=== PATIENT | male | born 1945 | race Caucasian/White ===

== ENCOUNTER 2016-12-04 18:29 | Emergency (ER) | payer MEDICARE ==
[2016-12-04 20:02] VITALS: BP 151/81
--- NOTE | 2016-12-04 20:57 | RAD ---
Indication: Left foot swelling. 3 views of left foot demonstrates no fracture. Soft tissue swelling is noted. IMPRESSION: No fracture of the left foot is noted.
[2016-12-04] MEDS ORDERED: predniSONE TAB* 10 MG PO ONE (21:18)
--- NOTE | 2016-12-04 21:21 | UC ---
Lower Extremity/Ankle HPI - HPI Summary HPI Summary: LEFT FOOT PAIN, STARTED ON THE BOTTOM OF FOOT, SPREAD TO DORSUM OF FOOT X 1 DAY. NO FEVERS, NO TRAUMA, NO OPEN WOUNDS. HX GOUT AND RA. TAKING IV FOR RA. HAD BLOOD WORK DONE AT [facility] TODAY. - History of Current Complaint Chief Complaint: UCLowerExtremity Stated Complaint: LFT FOOT PAIN Time Seen by Provider: 12/04/16 20:01 Hx Obtained From: Patient Onset/Duration: Lasting Days, Still Present Severity Initially: Mild Severity Currently: Moderate Aggravating Factor(s): Standing, Ambulation Alleviating Factor(s): Rest Able to Bear Weight: Yes - Risk Factors Gout Risk Factors: Age Over 40, Male - Allergies/Home Medications Allergies/Adverse Reactions: Allergies Allergy/AdvReac Type Severity Reaction Status Date / Time Hydroxychloroquine Allergy Unknown Unknown Verified 12/04/16 20:02 Reaction Details Leflunomide Allergy Unknown Unknown Verified 12/04/16 20:02 Reaction Details Cimetidine [From [facility]] Allergy Unknown Verified 12/04/16 20:02 Reaction Details Sulfa Antibiotics Allergy Unknown Verified 12/04/16 20:02 Reaction Details Home Medications: Home Medications Fluticasone NASAL SPRAY 50MCG* [Flonase NASAL SPRAY 50MCG*] 2 spray BOTH NARES DAILY 12/04/16 [History Confirmed 12/04/16] PMH/Surg Hx/FS Hx/Imm Hx Previously Healthy: No Endocrine History Of: Denies: Diabetes, Thyroid Disease Cardiovascular History Of: Reports: Cardiac Disorders - Pace Maker, stents, Hypertension, Atrial Fibrillation Psychological History Of: Denies: Anxiety, Depression - Surgical History Surgical History: Yes Surgery Procedure, Year, and Place: hemicholectomy- colostomy surgery with reversal. nasal. vasectomy. R TKA - Family History Known Family History: Positive: Cardiac Disease, Hypertension, Other - father had RA, at age 70. Mother had mental illness and [place] - Social History Alcohol Use: None Substance Use Type: None Smoking Status (MU): Former Smoker Amount Used/How Often: 3 PPD Length of Time of Smoking/Using Tobacco: 30 YEARS Have You Smoked in the Last Year: No When Did the Patient Quit Smoking/Using Tobacco: Household Exposure Type: Cigarettes - Immunization History Most Recent Influenza Vaccination: 2012 Most Recent Tetanus Shot: 2012 Most Recent Pneumonia Vaccination: 2006 Review of Systems Constitutional: Negative Skin: Other - MILD FOOT ERYTHEMA Respiratory: Negative Cardiovascular: Negative Motor: Negative Neurovascular: Negative Musculoskeletal: Edema - LEFT FOOT Neurological: Negative Psychological: Negative All Other Systems Reviewed And Are Negative: Yes Physical Exam Triage Information Reviewed: Yes Vital Signs: Initial Vital Signs Temp 98.4 F 12/04/16 19:55 Pulse 72 12/04/16 19:55 Resp 18 12/04/16 19:55 BP 151/81 12/04/16 19:55 Pulse Ox 99 12/04/16 19:55 Vital Signs Reviewed: Yes Respiratory: Positive: Normal breath sounds Musculoskeletal: Positive: Edema @ - LEFT FOOT, LESS IN LEFT CALF Neurological Exam: Normal Psychological Exam: Normal Skin: Positive: Other - LEFT FOOT MILD ERYTHEMA. NO SKIN BREAK. NO CALOR. MOST TENDER IN ARCH OF FOOT. Lower Extremity Course/Dx - Course Course Of Treatment: X-RAY NEGATIVE. INFECTION UNLIKELY; NO SKIN BREAK, NO DM, NO CALOR. DVT UNLIKELY SWELLING STARED ON PLANTAR FOOT. GOUT IS POSSIBLE; URIC ACID LEVEL PENDING. PLANTAR FASCITIS ALSO POSSIBLE. WILL RX PREDNISONE AND COLCHICINE. F/U URIC ACID TO DETERMINE NEED TO TREAT WITH COLCHICINE. F/U 12/05/16 WITH PMD TO GUIDE FURTHER TREATMENT. DISCUSSED WITH PATIENT TO GET SEEN AGAIN RIGHT AWAY FOR ANY SIGNS OF INFECTION OR DVT. - Differential Dx/Diagnosis Provider Diagnoses: LEFT FOOT SWELLING Discharge - Discharge Plan Condition: Stable Disposition: HOME Prescriptions: Colchicine [Mitigare] 0.6 mg PO Q2HR PRN #20 cap PRN Reason: Pain predniSONE TAB* [Deltasone TAB*] 30 mg PO DAILY #18 tab Additional Instructions: FOLLOW UP WITH YOUR DOCTOR. CALL YOUR DOCTOR TOMORROW, 12/05/16, FOR FOLLOW UP. YOUR URIC ACID LEVEL IS PENDING. GO TO THE EMERGENCY DEPARTMENT FOR ANY WORSENING OF YOUR CONDITION; PAIN, SWELLING, FEVER, YOU, FEEL ILL, SIGNS OF INFECTION OR BLOOD CLOT OR QUESTIONS OR CONCERNS.
== END 2016-12-04 21:40 | disposition home or self-care (01) ==
LOC: UCCORT 18:29
DX: M79.89 Other specified soft tissue disorders (principal); M79.672 Pain in left foot; Z95.0 Presence of cardiac pacemaker; I48.91 Unspecified atrial fibrillation; I10 Essential (primary) hypertension; Z95.5 Presence of coronary angioplasty implant and graft; Z88.2 Allergy status to sulfonamides; Z87.891 Personal history of nicotine dependence
CPT/HCPCS: 99212; G0463; J7512

== ENCOUNTER 2019-01-06 20:04 | Emergency (ER) | payer MEDICARE ==
--- OUTSIDE RECORDS SUMMARY | 2019-01-06 20:15 | XMS REPORT | Continuity of Care Document ---
:1945 External Reference #:[id number] Author Name Lg Briones M.D., [facility] Address [address] [place] [address] Care Team Providers Name Role Phone Pino Espinosa, Care Team Information Holter Scanning Technician Unavailable Pino Espinosa DO Primary Care Physician Unavailable Payers Date Identification Numbers Payment Provider Subscriber Policy Number: [id number] Medicare Elsy Garza PayID: [id number] [address] [place] [address] Effective: 2009 Policy Number: [facility] Elsy Garza [id number] PayID: [id number] [address] [place] [address] Effective: 2009 Policy Number: [id number] Medicare Elsy Garza Expires: 2018 PayID: [id number] [address] [place] [address] Problems Active Problems Provider Date Coronary arteriosclerosis Huang Herron MD, PhD Onset: 10/25/2010 Hyperlipidemia Huang Herron MD, PhD Onset: 10/25/2010 Malignant essential hypertension Huang Herron MD, PhD Onset: 10/25/2010 Chest pain Lakshmi Kolb, ANP Onset: 10/10/2011 Peripheral vascular disease Lakshmi Kolb, ANP Onset: 10/10/2011 Benign essential hypertension Lakshmi Kolb, ANP Onset: 10/10/2011 Atrial fibrillation Lakshmi Kolb, ANP Onset: 05/17/2013 Anticoagulant agent Lakshmi Kolb, ANP Onset: 11/09/2014 Sinus node dysfunction Lg Briones M.D., Onset: 04/13/2015 [facility] Cardiac pacemaker in situ Lg Briones M.D., Onset: 04/13/2015 [facility] Essential hypertension Michelle José, MSN, Onset: 06/18/2015 [employer] Chronic atrial fibrillation Michelle José, MSN, Onset: 06/18/2015 [employer] Atherosclerotic heart disease of Michelle José, MSN, Onset: 2014 crow coronary artery without angina [employer] pectoris Edema Lg Briones M.D., Onset: 12/27/2015 [facility] Long-term current use of anticoagulant Lg Briones M.D., Onset: 12/2015 [facility] Psychogenic impotence Lg Briones M.D., Onset: 12/30/2018 [facility] Paroxysmal ventricular tachycardia Lg Briones M.D., Onset: 2018 [facility] Family History Date Family Member(s) Observation Comments : (age 69 Years) Father due to AR : (age 52 Years) Mother due to AR Social History Type Date Description Comments Sex Unknown Lives With Girlfriend Geena Lew Patient follows no dietary restrictions Occupation 2006 Disabled ADL's/IADL's Independent with all ADL's ADL's/IADL's Independent with all IADL's Tobacco Use Start: Unknown End: Quit Unknown ETOH Use Occasionally consumes alcohol Tobacco Use Start: Unknown End: Patient is a former smoker Unknown Smoking Status Reviewed: 12/30/18 Patient is a former smoker Exercise Type/Frequency Exercises daily Exercise Type/Frequency Walks daily Allergies, Adverse Reactions, Alerts Active Allergies Reaction Severity Comments Date Tagamet Plaquenil Sulfa Drugs Medications Active Medications SIG Qnty Indications Ordering Provider Date Aspirin 1 by mouth every 90tabs I25.10 Lg Briones 10/06/[address] rebecca Polanco M.D., [facility] Magnesium Oxide take one tablet 60tabs Joanna Joséa 08/10/2018 400mg by mouth twice a Duran, MSN, Tablets day [employer] Viagra Generic 1 by mouth every 14tabs Lg Briones 06/28/2018 50mg day as needed Oliva Polanco, [facility] Tablets Lasix 1 by mouth every 90tabs Lg Briones 12/27/2015 20mg Tablets day as needed Oliva Polanco, [facility] Coumadin 1 tab by mouth 90tabs Lg Briones 12/27/2015 1mg Tablets every day Oliva Polanco, [facility] Coumadin Take 1 Tablet 90tabs Lg Briones 10/24/2015 5mg Tablets Every Day Oliva Polanco, [facility] Pravastatin Sodium 1 by mouth every 20tabs E78.5 Lg Briones 2012 40mg day with two on Oliva Polanco, [facility] Tablets thursday Nitrostat 1 tab sl every 5 25tabs I25.10 Lg Briones 04/16/2010 0.4mg Tablets min x3 chest pain Oliva Polanco, [facility] Sub Colchicine 1 tablet as Unknown 0.6mg directed Tablets Methotrexate 6 tabs by mouth Unknown 2.5mg every week Tablets Allopurinol 1 po qd ZhouMarcoofia, 100mg [employer] Tablets Calcium 500 + D3 1 by mouth once a Unknown day [id number] Tablets Tramadol HCL take 1 to 2 Unknown 50mg tablets by mouth Tablets every 6 hours if needed for pain maximum daily dose of 8 Actemra infusion q 4 Unknown 200mg/10ML weeks Solution Vitamin B-12 1 po qd Unknown 500mcg Tablets Omeprazole 1 po qd Unknown 20mg Capsules DR Folic Acid 1 po qd Lg Briones 1mg Tablets Oliva Polanco, [facility] History Medications Plavix 1 by mouth every 30tabs Anselmo, 11/30/2017 - 75mg Tablets day Lg Polanco M.D., Unknown FACC Ranexa 1 by mouth twice 60tabs I25.10 José, Michelle 11/23/2017 - 500mg Tablets ER 12HR a day Duran, ANA, Unknown [employer] Warfarin Sodium take 1 pill 45tabs Anselmo, 10/17/2014 - 1mg Tablets along with the 5 Lg Polanco M.D., 12/27/2015 mg pill only FACC once a week. (the rest of the days take 5 mg per day) Coumadin 1 tab by mouth 90tabs Anselmo, 10/06/2014 - 5mg Tablets every day Lg Polanco M.D., Unknown FACC Xarelto 1 by mouth every 30tabs Anselmo, 10/05/2014 - 20mg Tablets day Lg Polanco M.D., 10/06/2014 FACC Aspirin 1 by mouth every Anselmo, 10/05/2014 - 81mg Tablets day Lg Polanco M.D., 07/28/2016 FACC Hydrochlorothiazide 1 by mouth every 30caps 782.3 Anselmo, 06/20/2014 - 12.5mg day for five Lg Polanco M.D., 04/13/2015 Capsules days then as FACC needed. Xarelto 1 tab by mouth 30tabs 427.31 Huang Herron, 07/04/2013 - 20mg Tablets every evening , PhD Unknown Aspirin 1 po qd Huang Herron, 04/11/2013 - 325mg Tablets , PhD Unknown Pravastatin Sodium 1 po qd 90tabs José, Michelle 04/04/2011 - 80mg Tablets ANA Garzon, 04/04/2011 [employer] Pravastatin Sodium 2 tabs by mouth 180tabs José, Michelle 04/04/2011 - 40mg Tablets every day Duran, ANA, Unknown [employer] Amlodipine Besylate 1 po qd 90tabs 401.0 Huang Herron, 10/10/2010 - 2.5mg , PhD Unknown Tablets Ramipril take one capsule 90caps 414.00 Anselmo, 04/16/2010 - 5mg Capsules by mouth every Lg Polanco M.D., 04/13/2015 day FACC Prednisone 1 by mouth as Unknown - 5mg Tablets needed Unknown Aspir-81 1 by mouth every Unknown - 81mg Tablets DR day when not Unknown taking Prednisone prn Remicade via IV q6 weeks Unknown - 100mg Solution Rec at [facility] Aspirin Ec 1 po qd 90tabs Unknown - 325mg Tablets DR 10/05/2014 Lipoflavonoid 1 po bid Unknown - Tablets Unknown Amlodipine Besylate 1 by mouth every 90tabs 401.0 Jarodenko, - 5mg Tablets day Lg Polanco M.D., 04/13/2015 FACC Pravastatin Sodium 1 po qd 90tabs Unknown - 40mg Tablets 10/11/2012 Nabumetone take 1 tablet 60tabs Unknown - 750mg Tablets daily Unknown Diclofenac Sodium DR 1 tab po bid ac 60tabs Unknown - 75mg Unknown Tablets Lipitor 1 po qd 90tabs José, Michelle - 40mg Tablets Duran, MSN, 04/04/2011 [employer] Plavix 1 by mouth every 90tabs Jarodenmichael, - 75mg Tablets day Lg Polanco M.D., 10/05/2014 FACC Remicade IV q 8 weeks Unknown - Solution Rec Unknown Methotrexate Sodium 0.8ml inject Unknown - 25mg/ml qweekly Unknown Solution Hydrocodone-Acetaminophen prn Anselmo, - Lg Polanco M.D., Unknown 7.5-500mg Tablets FACC Nitrostat 1 tab sl q5min 25tabs Anselmo, - 0.4mg Tablets Sub x3 CP Lg Polanco M.D., Unknown FACC Aspirin Ec 1 po qd Anselmo, - 81mg Tablets DR Lg Polanco M.D., 04/11/2013 FACC Tramadol HCL 1 po QHS/prn Anselmo, - 50mg Tablets Lg Polanco M.D., Unknown FACC Viagra prn 5tabs Anselmo, - 50mg Tablets Lg Polanco M.D., Unknown FACC Hydrochlorothiazide 1 po qd 30tabs Anselmo, - 12.5mg Lg Polanco M.D., Unknown Tablets FACC Nabumetone 1 po qd Harrietko, - 750mg Tablets Lg Polanco M.D., Unknown FACC Prilosec 1 po qd Harrietko, - 20mg Capsules DR Lg Polanco M.D., Unknown FACC Vital Signs Date Vital Result Comment 12/30/2018 9:49am BP Systolic Sitting Left Arm 131 mmHg BP Diastolic Sitting Left Arm 87 mmHg Heart Rate 71 /min Respiratory Rate 18 /min Weight 213.00 lb O2 % BldC Oximetry 96 % ora 10/06/2018 1:40pm BP Systolic Sitting Left Arm 140 mmHg BP Diastolic Sitting Left Arm 77 mmHg Heart Rate 66 /min Respiratory Rate 16 /min Height 73 inches 6'1" Weight 227.00 lb BMI (Body Mass Index) 29.9 kg/m2 BSA (Body Surface Area) 2.27 m2 [place] body weight in kilograms 83 kg O2 Saturation Level with Exercise 98 % 06/28/2018 9:26am BP Systolic Sitting Left Arm 128 mmHg BP Diastolic Sitting Left Arm 74 mmHg Heart Rate 83 /min Respiratory Rate 18 /min Height 73 inches 6'1" Weight 230.00 lb BMI (Body Mass Index) 30.3 kg/m2 BSA (Body Surface Area) 2.28 m2 [place] body weight in kilograms 83 kg O2 % BldC Oximetry 99 % Room air 03/25/2018 9:01am BP Systolic Sitting Left Arm 114 mmHg BP Diastolic Sitting Left Arm 66 mmHg Heart Rate 65 /min Respiratory Rate 18 /min Height 73 inches 6'1" Weight 239.00 lb BMI (Body Mass Index) 31.5 kg/m2 BSA (Body Surface Area) 2.32 m2 [place] body weight in kilograms 83 kg O2 % BldC Oximetry 97 % Room air 12/23/2017 10:37am BP Systolic Sitting Left Arm 110 mmHg BP Diastolic Sitting Left Arm 70 mmHg Heart Rate 75 /min Respiratory Rate 16 /min Weight 263.00 lb 11/23/2017 10:58am BP Systolic Sitting Left Arm 124 mmHg BP Diastolic Sitting Left Arm 74 mmHg Heart Rate 68 /min Respiratory Rate 16 /min Height 73 inches 6'1" Weight 261.00 lb BMI (Body Mass Index) 34.4 kg/m2 BSA (Body Surface Area) 2.41 m2 [place] body weight in kilograms 83 kg 10/27/2017 3:03pm BP Systolic Sitting Left Arm 120 mmHg BP Diastolic Sitting Left Arm 80 mmHg Heart Rate 73 /min Respiratory Rate 16 /min Height 73 inches 6'1" Weight 259.00 lb BMI (Body Mass Index) 34.2 kg/m2 BSA (Body Surface Area) 2.40 m2 [place] body weight in kilograms 83 kg 08/10/2017 10:06am BP Systolic Sitting Right Arm 128 mmHg BP Diastolic Sitting Right Arm 72 mmHg Heart Rate 79 /min Respiratory Rate 16 /min Height 73 inches 6'1" Weight 261.00 lb BMI (Body Mass Index) 34.4 kg/m2 BSA (Body Surface Area) 2.41 m2 [place] body weight in kilograms 83 kg 01/26/2017 9:35am BP Systolic Sitting Left Arm 122 mmHg BP Diastolic Sitting Left Arm 88 mmHg Heart Rate 78 /min Respiratory Rate 16 /min Height 73 inches 6'1" Weight 257.00 lb BMI (Body Mass Index) 33.9 kg/m2 BSA (Body Surface Area) 2.39 m2 [place] body weight in kilograms 83 kg 07/28/2016 1:56pm BP Systolic Sitting Left Arm 122 mmHg BP Diastolic Sitting Left Arm 70 mmHg Heart Rate 72 /min Height 73 inches 6'1" Weight 258.00 lb BMI (Body Mass Index) 34.0 kg/m2 BSA (Body Surface Area) 2.40 m2 01/17/2016 2:04pm BP Systolic Sitting Right Arm 108 mmHg BP Diastolic Sitting Right Arm 60 mmHg Heart Rate 64 /min Respiratory Rate 16 /min Height 73 inches 6'1" Weight 257.00 lb BMI (Body Mass Index) 33.9 kg/m2 BSA (Body Surface Area) 2.39 m2 12/27/2015 9:26am BP Systolic Sitting Left Arm 134 mmHg BP Diastolic Sitting Left Arm 72 mmHg Heart Rate 70 /min Respiratory Rate 16 /min Height 73 inches 6'1" Weight 258.00 lb BMI (Body Mass Index) 34.0 kg/m2 BSA (Body Surface Area) 2.40 m2 06/18/2015 9:36am BP Systolic Sitting Left Arm 120 mmHg BP Diastolic Sitting Left Arm 64 mmHg Heart Rate 76 /min Respiratory Rate 16 /min Height 73 inches 6'1" Weight 249.00 lb BMI (Body Mass Index) 32.8 kg/m2 BSA (Body Surface Area) 2.36 m2 04/13/2015 10:16am BP Systolic Sitting Right Arm 96 mmHg BP Diastolic Sitting Right Arm 60 mmHg Heart Rate 76 /min Respiratory Rate 16 /min Height 73 inches 6'1" Weight 255.00 lb BMI (Body Mass Index) 33.6 kg/m2 BSA (Body Surface Area) 2.39 m2 02/08/2015 10:31am BP Systolic Sitting Right Arm 122 mmHg BP Diastolic Sitting Right Arm 68 mmHg Heart Rate 66 /min Respiratory Rate 14 /min Height 73 inches 6'1" Weight 258.00 lb BMI (Body Mass Index) 34.0 kg/m2 BSA (Body Surface Area) 2.40 m2 11/07/2014 2:44pm BP Systolic Sitting Right Arm 120 mmHg BP Diastolic Sitting Right Arm 62 mmHg Heart Rate 70 /min Respiratory Rate 20 /min Height 73 inches 6'1" Weight 258.00 lb BMI (Body Mass Index) 34.0 kg/m2 BSA (Body Surface Area) 2.40 m2 10/05/2014 11:45am BP Systolic Sitting Left Arm 126 mmHg BP Diastolic Sitting Left Arm 72 mmHg Heart Rate 60 /min Respiratory Rate 20 /min Height 73 inches 6'1" Weight 260.00 lb BMI (Body Mass Index) 34.3 kg/m2 BSA (Body Surface Area) 2.41 m2 06/20/2014 10:09am BP Systolic Sitting Left Arm 134 mmHg BP Diastolic Sitting Left Arm 76 mmHg Heart Rate 60 /min Respiratory Rate 16 /min Height 73 inches 6'1" Weight 256.00 lb BMI (Body Mass Index) 33.8 kg/m2 BSA (Body Surface Area) 2.39 m2 05/18/2014 10:07am BP Systolic Sitting Left Arm 122 mmHg BP Diastolic Sitting Left Arm 64 mmHg Heart Rate 58 /min Respiratory Rate 16 /min Height 73 inches 6'1" Weight 260.00 lb BMI (Body Mass Index) 34.3 kg/m2 BSA (Body Surface Area) 2.41 m2 11/11/2013 10:19am BP Systolic Sitting Right Arm 122 mmHg BP Diastolic Sitting Right Arm 70 mmHg Heart Rate 56 /min Respiratory Rate 16 /min Height 73 inches 6'1" Weight 251.00 lb BMI (Body Mass Index) 33.1 kg/m2 BSA (Body Surface Area) 2.37 m2 08/25/2013 10:29am BP Systolic Sitting Right Arm 144 mmHg BP Diastolic Sitting Right Arm 74 mmHg Heart Rate 60 /min Respiratory Rate 16 /min Height 73 inches 6'1" Weight 248.00 lb BMI (Body Mass Index) 32.7 kg/m2 BSA (Body Surface Area) 2.36 m2 07/04/2013 9:05am BP Systolic Sitting Right Arm 130 mmHg BP Diastolic Sitting Right Arm 74 mmHg Heart Rate 68 /min Respiratory Rate 16 /min Height 73 inches 6'1" Weight 246.00 lb BMI (Body Mass Index) 32.5 kg/m2 BSA (Body Surface Area) 2.35 m2 06/01/2013 2:01pm BP Systolic Sitting Right Arm 112 mmHg BP Diastolic Sitting Right Arm 64 mmHg Heart Rate 76 /min Irregular Respiratory Rate 16 /min Height 73 inches 6'1" Weight 243.00 lb BMI (Body Mass Index) 32.1 kg/m2 BSA (Body Surface Area) 2.34 m2 05/17/2013 9:46am BP Systolic Sitting Right Arm 114 mmHg BP Diastolic Sitting Right Arm 72 mmHg Heart Rate 62 /min Respiratory Rate 16 /min Height 73 inches 6'1" Weight 245.00 lb BMI (Body Mass Index) 32.3 kg/m2 BSA (Body Surface Area) 2.35 m2 04/11/2013 10:44am BP Systolic Sitting Right Arm 114 mmHg BP Diastolic Sitting Right Arm 68 mmHg Heart Rate 55 /min Respiratory Rate 20 /min Height 73 inches 6'1" Weight 243.00 lb BMI (Body Mass Index) 32.1 kg/m2 BSA (Body Surface Area) 2.34 m2 10/11/2012 10:32am BP Systolic Sitting Right Arm 128 mmHg BP Diastolic Sitting Right Arm 64 mmHg Heart Rate 56 /min Regular Respiratory Rate 16 /min Height 73 inches 6'1" Weight 250.00 lb BMI (Body Mass Index) 33.0 kg/m2 04/09/2012 10:59am BP Systolic Recheck 133 mmHg BP Diastolic Recheck 66 mmHg 04/09/2012 10:42am BP Systolic Sitting Left Arm 148 mmHg BP Diastolic Sitting Left Arm 70 mmHg Heart Rate 60 /min Respiratory Rate 16 /min Height 71 inches 5'11" Weight 244.00 lb BMI (Body Mass Index) 34.0 kg/m2 10/10/2011 10:22am BP Systolic Sitting Left Arm 132 mmHg BP Diastolic Sitting Left Arm 64 mmHg Heart Rate 60 /min Regular Respiratory Rate 16 /min Height 71 inches 5'11" Weight 248.00 lb BMI (Body Mass Index) 34.6 kg/m2 09/08/2011 9:29am BP Systolic Sitting Right Arm 132 mmHg BP Diastolic Sitting Right Arm 64 mmHg Heart Rate 60 /min Regular Respiratory Rate 12 /min Height 71 inches 5'11" Weight 249.00 lb BMI (Body Mass Index) 34.7 kg/m2 01/27/2011 10:25am BP Systolic Sitting Left Arm 130 mmHg BP Diastolic Sitting Left Arm 66 mmHg Heart Rate 60 /min Respiratory Rate 14 /min Height 71 inches 5'11" Weight 249.00 lb BMI (Body Mass Index) 34.7 kg/m2 10/25/2010 1:16pm BP Systolic Sitting Left Arm 112 mmHg BP Diastolic Sitting Left Arm 60 mmHg Heart Rate 60 /min Regular Respiratory Rate 16 /min Height 71 inches 5'11" Weight 243.00 lb BMI (Body Mass Index) 33.9 kg/m2 10/10/2010 1:04pm BP Systolic Sitting Left Arm 122 mmHg BP Diastolic Sitting Left Arm 72 mmHg Heart Rate 56 /min Regular Respiratory Rate 16 /min Height 71 inches 5'11" Weight 243.00 lb BMI (Body Mass Index) 33.9 kg/m2 07/15/2010 8:51am BP Systolic Sitting Left Arm 118 mmHg BP Diastolic Sitting Left Arm 62 mmHg Heart Rate 62 /min Respiratory Rate 14 /min Height 71 inches 5'11" Weight 244.00 lb BMI (Body Mass Index) 34.0 kg/m2 04/16/2010 9:29am Heart Rate 52 /min Regular Respiratory Rate 16 /min Weight 250.00 lb 04/01/2010 12:51pm Heart Rate 56 /min Weight 251.00 lb Results Test Date Facility Test Result H/L Range Note PT W/Inr [facility] 1.[address] [place] [address] [phone] PT W/Inr [facility] 2.[address] [place] [address] [phone] PT W/Inr [facility] 2.[address] [place] [address] [phone] PT W/Inr [facility] 2.[address] [place] [address] [phone] PT W/Inr [facility] 2.[address] [place] [address] [phone] PT W/Inr [facility] 2.[address] [place] [address] [phone] PT W/Inr [facility] 1.[address] [place] [address] [phone] Platelet poor N2N/CCD Import Platelet poor 2.1 High 0.9-1.1 plasma 019 plasma international international normalized rati normalized ratio (Inr) by coagulation assay (relative time) Prothrombin time N2N/CCD Import Prothrombin time 23.3 High 12.0- 14 (PT) in platelet 019 (PT) in platelet .4 poor plasma poor plasma Serum globulin N2N/CCD Import Serum globulin 2.9 1.9-4.3 measurement by 019 measurement by calculation calculation (mass/vo (mass/volume) Serum or plasma N2N/CCD Import Serum or plasma 24 12-78 alanine 019 alanine aminotransferase aminotransferase measureme measurement (enzymatic activity/volume) Serum or plasma N2N/CCD Import Serum or plasma 3.6 3.4-5.0 albumin measurement 019 albumin measurement (mass/volume) (mass/volume) Serum or plasma N2N/CCD Import Serum or plasma 1.2 albumin/globulin 019 albumin/globulin mass ratio mass ratio Serum or plasma N2N/CCD Import Serum or plasma 30 Low 45-117 alkaline 019 alkaline phosphatase phosphatase measurement ( measurement (enzymatic activity/volume) Serum or plasma N2N/CCD Import Serum or plasma 7 Low 8-16 anion gap 019 anion gap Serum or plasma N2N/CCD Import Serum or plasma 22 15-37 aspartate 019 aspartate aminotransferase aminotransferase measure measurement (enzymatic activity/volume) Serum or plasma N2N/CCD Import Serum or plasma 8.3 Low 8.5-10. calcium measurement 019 calcium measurement 1 (mass/volume) (mass/volume) Serum or plasma N2N/CCD Import Serum or plasma 106 98-107 chloride 019 chloride measurement measurement Serum or plasma N2N/CCD Import Serum or plasma 1.0 0.6-1.3 creatinine 019 creatinine measurement measurement (mass/volum (mass/volume) Serum or plasma N2N/CCD Import Serum or plasma 101 74-106 glucose measurement 019 glucose measurement (mass/volume) (mass/volume) Serum or plasma N2N/CCD Import Serum or plasma 4.1 3.5-5.1 potassium 019 potassium measurement measurement Serum or plasma N2N/CCD Import Serum or plasma 6.5 6.4-8.2 protein measurement 019 protein measurement (mass/volume) (mass/volume) Serum or plasma N2N/CCD Import Serum or plasma 1.7 High 0.2-1.0 total bilirubin 019 total bilirubin measurement (mass/ measurement (mass/volume) Serum or plasma N2N/CCD Import Serum or plasma 13 7-18 urea nitrogen 019 urea nitrogen measurement measurement (mass/vo (mass/volume) Serum or plasma N2N/CCD Import Serum or plasma 13.0 urea 019 urea nitrogen/creatinine nitrogen/creatinine mass rati mass ratio Sodium SerPl-sCnc N2N/CCD Import Sodium SerPl-sCnc 139 136-145 019 Automated blood N2N/CCD Import Automated blood 0.02 0.0-0.1 basophil count 019 basophil count (number/volume) (number/volume) Automated basophil N2N/CCD Import Automated basophil 0.4 0.0- 1.1 % 019 % Absolute neutrophil N2N/CCD Import Absolute neutrophil 3.83 1.8- 7.0 count 019 count Automated blood N2N/CCD Import Automated blood 0.10 0.0-0.5 eosinophil count 019 eosinophil count Automated blood N2N/CCD Import Automated blood 5.4 3.4-10. leukocyte count 019 leukocyte count 5 (number/volume) (number/volume) Automated blood N2N/CCD Import Automated blood 0.89 Low 1.0-4.0 lymphocyte count 019 lymphocyte count (number/volume) (number/volume) Automated blood N2N/CCD Import Automated blood 16.6 Low 20.0-42 lymphocytes/100 019 lymphocytes/100 .0 leukocytes leukocytes Automated blood N2N/CCD Import Automated blood 71.6 33.0-73 neutrophils/100 019 neutrophils/100 .0 leukocytes leukocytes Automated blood N2N/CCD Import Automated blood 174 155-360 platelet count 019 platelet count Automated blood N2N/CCD Import Automated blood 9.6 6.6-10. platelet mean 019 platelet mean 6 volume measurement volume measurement Automated N2N/CCD Import Automated 1.9 0.0-6.6 eosinophil % 019 eosinophil % Automated N2N/CCD Import Automated 54.5 High 36-51 erythrocyte 019 erythrocyte distribution width distribution width Automated N2N/CCD Import Automated 14.9 11.6-15 erythrocyte 019 erythrocyte .8 distribution width distribution width ratio ratio Automated N2N/CCD Import Automated 33.8 High 27.0-33 erythrocyte mean 019 erythrocyte mean .0 corpuscular corpuscular hemoglobin hemoglobin (mass per erythrocyte) Automated N2N/CCD Import Automated 33.1 31.7-36 erythrocyte mean 019 erythrocyte mean .0 corpuscular corpuscular hemoglobin hemoglobin concentration measurement (mass/volume) Automated N2N/CCD Import Automated 102.1 High 80.0-96 erythrocyte mean 019 erythrocyte mean .0 corpuscular volume corpuscular volume (MCV (MCV) measurement Automated monocyte N2N/CCD Import Automated monocyte 9.5 0.0- 10. % 019 % 0 Blood erythrocytes N2N/CCD Import Blood erythrocytes 3.85 Low 4.20-5. automated count 019 automated count 80 (number/volume) (number/volume) Blood hemoglobin N2N/CCD Import Blood hemoglobin 13.0 12.8-17 measurement 019 measurement .0 (mass/volume) (mass/volume) Blood monocytes N2N/CCD Import Blood monocytes 0.51 0.0-0.8 automated count 019 automated count (number/volume) (number/volume) Co2 SerPl-sCnc N2N/CCD Import Co2 SerPl-sCnc 26 21-32 019 Hct VFr Bld Auto N2N/CCD Import Hct VFr Bld Auto 39.3 38.0-48 019 .0 PT W/Inr [facility] 2.[address] [place] [address] [phone] PT W/Inr [facility] 1.[address] [place] [address] [phone] PT W/Inr [facility] 2.[address] [place] [address] [phone] PT W/Inr [facility] 2.[address] [place] [address] [phone] PT W/Inr [facility] 1.[address] [place] [address] [phone] PT W/Inr [facility] 1.[address] [place] [address] [phone] PT W/Inr [facility] 2.[address] [place] [address] [phone] PT W/Inr [facility] 2.[address] [place] [address] [phone] PT W/Inr [facility] 2.2 018 Normalized Ratio PT W/Inr [facility] 2.4 018 Normalized Ratio PT W/Inr [facility] 2.4 018 Normalized Ratio PT W/Inr [facility] 2.6 018 Normalized Ratio PT W/Inr [facility] 2.2 018 Normalized Ratio PT W/Inr [facility] 2.3 018 Normalized Ratio PT W/Inr [facility] 2.3 018 Normalized Ratio PT W/Inr [facility] 1.8 018 Normalized Ratio Basic Metabolic N2N/CCD Import Anion Gap 7 mmol/L 7 - 16 Panel 018 BUN/Creatinine Ratio 16.1 Ratio 10.0 - 20.0 Calcium 9.1 mg/dL 8.4 - 10.2 Chloride 105 mmol/L 100 - 108 Co2 28 mmol/L 22 - 31 Creatinine 1.12 mg/dL 0.80 - 1.30 GFR MDRD Af Amer >60 >59 ml/min/1.73m2 GFR MDRD Non Af Amer >60 >59 ml/min/1.73m2 Glom Filt Rate, Est See Notes Glucose 129 mg/dL High 70 - 99 Potassium 4.1 mmol/L 3.6 - 5.2 Sodium 140 mmol/L 136 - 145 Urea nitrogen 18 mg/dL 7 - 24 CBC and 12/08/2017 N2N/CCD Import Basophils 0.0 10*3/uL 0.0 - 0.2 differential Absolute Basophils Relative 0.7 % 0.0 - 4.0 Eosinophils Absolute 0.1 10*3/uL 0.0 - 0.5 Eosinophils Relative 2.5 % 0.0 - 5.0 Hematocrit 45.6 % 41.0 - 53.0 Hemoglobin 15.5 g/dL 13.5 - 18.0 Lymphocytes Absolute 1.0 10*3/uL Low 1.2 - 4.8 Lymphocytes Relative 17.9 % 16.0 - 52.0 MCH 33.4 pg High 27.0 - 32.0 MCHC 34.0 g/dL 32.0 - 36.0 MCV 98.4 fL High 80.0 - 95.0 MPV 7.9 fL 7.1 - 10.7 Monocytes Absolute 0.7 10*3/uL 0.0 - 0.8 Monocytes Relative 11.9 % High 0.0 - 8.0 Neutrophils % 67.0 % 35.0 - 75.0 Neutrophils Absolute 3.9 10*3/uL 1.8 - 7.7 Platelets 154 10*3/uL 150 - 450 RBC 4.63 10*6/uL 4.60 - 6.10 RDW 15.0 % High 10.5 - 14.5 WBC 5.8 10*3/uL 4.1 - 11.0 Protime-Inr 12/08/2017 N2N/CCD Import Inr 1.59 1 Protime 16.6 s High 9.2 - 11.9 PT W/Inr 12/07/2017 [facility] 2.2 Normalized Ratio PT W/Inr 11/09/2017 [facility] 2.4 Normalized Ratio PT W/Inr 11/02/2017 [facility] 2.2 Normalized Ratio Protime 10/22/2017 [facility] Protime 26.4 seconds High 12.0-14.4 1 [address] [place] [address] [phone] Inr 2.5 High 0.9-1.1 2 Protime 10/14/2017 [facility] Protime 19.1 seconds High 12.0-14.4 [address] [place] [address] [phone] Inr 1.6 High 0.9-1.1 3 Anticoagulant Therapy? YES Date of Last Dose: [id number] Time of Last Dose: 2300 Protime 09/16/2017 [facility] Protime 26.0 seconds High 12.0-14.4 [address] [place] [address] [phone] Inr 2.4 High 0.9-1.1 4 Anticoagulant Therapy? YES Date of Last Dose: [id number] Time of Last Dose: 2300 Protime 08/19/2017 [facility] Protime 29.0 seconds High 12.0-14.4 [address] [place] [address] [phone] Inr 2.8 High 0.9-1.1 5 Anticoagulant Therapy? YES Protime 07/20/2017 [facility] Protime 27.6 seconds High 12.0-14.4 [address] [place], [place] [id number] [phone] Inr 2.6 High 0.9-1.1 6 Protime 06/16/2017 [facility] Protime 27.2 seconds High 12.0-14.4 [address] [place] [address] [phone] Inr 2.6 High 0.9-1.1 7 Anticoagulant Therapy? YES Date of Last Dose: 06/15/17 Time of Last Dose: 1130 Protime 05/19/2017 [facility] Protime 25.0 seconds High 12.0-14.4 [address] [place] [address] [phone] Inr 2.3 High 0.9-1.1 8 Anticoagulant Therapy? YES Date of Last Dose: [id number] Time of Last Dose: 2300 Protime 04/22/2017 [facility] Protime 27.2 seconds High 12.0-14.4 [address] [place] [address] [phone] Inr 2.6 High 0.9-1.1 9 Anticoagulant Therapy? YES Date of Last Dose: 04/21/17 Time of Last Dose: 2300 Protime 04/08/2017 [facility] Protime 24.7 seconds High 12.0-14.4 [address] [place] [address] [phone] Inr 2.3 High 0.9-1.1 10 Anticoagulant Therapy? YES Date of Last Dose: [id number] Time of Last Dose: 2330 Protime 04/01/2017 [facility] Protime 21.7 seconds High 12.0-14.4 [address] [place] [address] [phone] Inr 1.9 High 0.9-1.1 11 Anticoagulant Therapy? YES Date of Last Dose: [id number] Time of Last Dose: 2300 Protime 03/25/2017 [facility] Protime 21.7 seconds High 12.0-14.4 [address] [place] [address] [phone] Inr 2.0 High 0.9-1.1 12 Anticoagulant Therapy? YES Date of Last Dose: [id number] Time of Last Dose: 2300 Protime 03/18/2017 [facility] Protime 21.5 seconds High 12.0-14.4 13 [address] [place] [address] [phone] Inr 1.9 High 0.9-1.1 14 Anticoagulant Therapy? YES Date of Last Dose: [id number] Time of Last Dose: 2330 Protime 02/25/2017 [facility] Protime 21.8 seconds High 12.0-14.4 [address] [place] [address] [phone] Inr 2.0 High 0.9-1.1 15 Anticoagulant Therapy? YES Date of Last Dose: 02/24/17 Time of Last Dose: 2230 Protime 02/18/2017 [facility] Protime 22.6 seconds High 12.0-14.4 [address] [place] [address] [phone] Inr 2.1 High 0.9-1.1 16 Anticoagulant Therapy? YES Date of Last Dose: [id number] Time of Last Dose: 2230 Protime 02/11/2017 [facility] Protime 20.5 seconds High 12.0-14.4 [address] [place] [address] [phone] Inr 1.8 High 0.9-1.1 17 Anticoagulant Therapy? YES Date of Last Dose: [id number] Time of Last Dose: 2330 Protime 02/04/2017 [facility] Protime 18.6 seconds High 12.0-14.4 [address] [place] [address] [phone] Inr 1.6 High 0.9-1.1 18 Anticoagulant Therapy? YES Date of Last Dose: [id number] Time of Last Dose: 2300 Protime 01/28/2017 [facility] Protime 42.0 seconds High 12.0-14.4 [address] [place] [address] [phone] Inr 4.6 High 0.9-1.1 19 Anticoagulant Therapy? YES Date of Last Dose: [id number] Time of Last Dose: 2200 Protime 12/31/2016 [facility] Protime 30.4 seconds High 12.0-14.4 [address] [place] [address] [phone] Inr 3.0 High 0.9-1.1 20 Anticoagulant Therapy? YES Date of Last Dose: [id number] Time of Last Dose: 1100 Protime 12/03/2016 [facility] Protime 27.4 seconds High 12.0-14.4 [address] [place] [address] [phone] Inr 2.6 High 0.9-1.1 21 Anticoagulant Therapy? YES Date of Last Dose: [id number] Time of Last Dose: 1100 Protime 11/03/2016 [facility] Protime 24.0 seconds High 12.0-14.4 [address] [place] [address] [phone] Inr 2.2 High 0.9-1.1 22 Anticoagulant Therapy? YES Date of Last Dose: 11/02/16 Time of Last Dose: 1100PM Protime 10/07/2016 [facility] Protime 23.6 seconds High 12.0-14.4 [address] [place] [address] [phone] Inr 2.2 High 0.9-1.1 23 Anticoagulant Therapy? YES Date of Last Dose: 10/06/16 Time of Last Dose: 11PM Protime 09/11/2016 [facility] Protime 27.1 seconds High 12.0-14.4 [address] [place] [address] [phone] Inr 2.6 High 0.9-1.1 24 Anticoagulant Therapy? YES Date of Last Dose: 09/10/16 Time of Last Dose: 1030PM Protime 08/06/2016 [facility] Protime 30.0 seconds High 12.0-14.4 [address] [place] [address] [phone] Inr 3.0 High 0.9-1.1 25 Anticoagulant Therapy? YES Date of Last Dose: 08/05/16 Time of Last Dose: 11PM Protime 07/10/2016 [facility] Protime 29.2 seconds High 12.0-14.4 [address] [place] [address] [phone] Inr 2.9 High 0.9-1.1 26 Anticoagulant Therapy? YES Date of Last Dose: 07/09/16 Time of Last Dose: 1700 Protime 06/10/2016 [facility] Protime 25.7 seconds High 12.0-14.4 [address] [place] [address] [phone] Inr 2.4 High 0.9-1.1 27 @[facility] Pat Id: [id number] @[facility] Req #: [id number] Anticoagulant Therapy? YES Date of Last Dose: 06/09/16 Time of Last Dose: 1100PM Protime 05/09/2016 [facility] Protime 29.6 seconds High 12.0-14.4 [address] [place] [address] [phone] Inr 2.9 High 0.9-1.1 28 @[facility] Pat Id: [id number] @[facility] Req #: [id number] Anticoagulant Therapy? YES Date of Last Dose: 05/08/16 Time of Last Dose: 2300 Protime 04/08/2016 [facility] Protime 28.1 seconds High 12.0-14.4 [address] [place] [address] [phone] Inr 2.7 High 0.9-1.1 29 Protime 03/11/2016 [facility] Protime 28.4 seconds High 12.0-14.4 [address] [place] [address] [phone] Inr 2.8 High 0.9-1.1 30 Protime 02/13/2016 [facility] Protime 25.4 seconds High 12.0-14.4 [address] [place] [address] [phone] Inr 2.4 High 0.9-1.1 31 Protime 01/16/2016 [facility] Protime 25.0 seconds High 12.1-14.9 [address] [place] [address] [phone] Inr 2.2 High 0.9-1.1 32 Basic Metabolic Panel 01/16/2016 [facility] Glucose 126 mg/dL High 74-106 [address] [place] [address] [phone] BUN 19 mg/dL High 7-18 Creatinine 1.1 mg/dL 0.6-1.3 Glom Filtration Rate, Estimate >60 mL/min >60 If >60 mL/min >60 33 BUN/Creat 17.2 ratio Sodium 138 mmol/L 136-145 Potassium 4.0 mmol/L 3.5-5.1 Chloride 104 mmol/L 98-107 Carbon Dioxide 27 mmol/L 21-32 Anion Gap 7 mEq/L Low 8-16 Calcium 8.8 mg/dL 8.5-10.1 Protime 12/27/2015 [facility] Protime 25.7 seconds High 12.1-14.9 [address] [place] [address] [phone] Inr 2.3 High 0.9-1.1 34 Protime 11/29/2015 [facility] Protime 32.1 seconds High 12.1-14.9 [address] [place] [address] [phone] Inr 3.1 High 0.9-1.1 35 Protime 10/30/2015 [facility] Protime 30.1 seconds High 12.1-14.9 [address] [place] [address] [phone] Inr 2.8 High 0.9-1.1 36 Protime 10/02/2015 [facility] Protime 24.5 seconds High 12.1-14.9 [address] [place] [address] [phone] Inr 2.2 High 0.9-1.1 37 Protime 09/03/2015 [facility] Protime 27.9 seconds High 12.1-14.9 [address] [place] [address] [phone] Inr 2.6 High 0.9-1.1 38 Protime 08/06/2015 [facility] Protime 26.1 seconds High 12.1-14.9 [address] [place] [address] [phone] Inr 2.4 High 0.9-1.1 39 Protime 07/05/2015 [facility] Protime 25.5 seconds High 12.0-14.4 [address] [place] [address] [phone] Inr 2.3 High 0.9-1.1 40 Protime 06/04/2015 [facility] Protime 23.7 seconds High 12.0-14.4 [address] [place] [address] [phone] Inr 2.1 High 0.9-1.1 41 Protime 05/14/2015 [facility] Protime 23.6 seconds High 12.0-14.4 [address] [place] [address] [phone] Inr 2.1 High 0.9-1.1 42 Protime 04/16/2015 [facility] Protime 27.1 seconds High 12.0-14.4 [address] [place], [place] [address] [phone] Inr 2.5 High 0.9-1.1 43 Protime 03/19/2015 [facility] Protime 22.6 seconds High 12.0-14.4 44 [address] [place], [place] [address] [phone] Inr 2.0 High 0.9-1.1 45 Protime 02/22/2015 [facility] Protime 22.3 seconds High 12.1-14.9 [address] [place], [place] [address] [phone] Inr 1.9 High 0.9-1.1 46 CBC 02/19/2015 [facility] White Blood Count 7.0 K/uL 3.4-10.5 [address] [place], [place] [address] [phone] Red Blood Count 4.43 M/uL 4.20-5.80 Hemoglobin 13.3 gm/dL 12.8-17.0 Hematocrit 40.6 % 38.0-48.0 Mean Cell Volume 91.6 fl 80.0-96.0 Mean Corpuscular HGB 30.0 pg 27.0-33.0 Mean Corpuscular HGB Conc 32.8 g/dL 31.7-36.0 Platelet Count 211 K/uL 150-400 Red Cell Distri Width %CV 18.4 % High 11.6-15.8 Mean Platelet Volume 10.0 fL 6.6-10.6 Protime 02/19/2015 [facility] Protime 23.1 seconds High 12.1-14.9 [address] [place], [place] [address] [phone] Inr 2.0 High 0.9-1.1 47 Laboratory test 02/19/2015 [facility] Act Partial 35.5 High 23.9-34.3 48 finding [address] [place] [address] Time [phone] Basic Metabolic 02/19/2015 [facility] Glucose 164 mg/dL High 74-106 Panel [address] [place] [address] [phone] BUN 12 mg/dL 7-18 Creatinine 1.0 mg/dL 0.6-1.3 Glom Filtration Rate, Estimate >60 mL/min >60 If >60 mL/min >60 49 BUN/Creat 12.0 ratio Sodium 137 mmol/L 136-145 Potassium 3.9 mmol/L 3.5-5.1 Chloride 102 mmol/L 98-107 Carbon Dioxide 24 mmol/L 21-32 Anion Gap 11 mEq/L 8-16 Calcium 8.8 mg/dL 8.5-10.1 Protime 01/24/2015 [facility] Protime 26.7 seconds High 12.1-14.9 [address] [place] [address] [phone] Inr 2.4 High 0.9-1.1 50 Protime 01/03/2015 [facility] Protime 24.8 seconds High 12.0-14.4 [address] [place] [address] [phone] Inr 2.3 High 0.9-1.1 51 Protime 12/05/2014 [facility] Protime 23.2 seconds High 12.0-14.4 [address] [place] [address] [phone] Inr 2.1 High 0.9-1.1 52 Protime 11/21/2014 [facility] Protime 22.7 seconds High 12.0-14.4 [address] [place] [address] [phone] Inr 2.0 High 0.9-1.1 53 Protime 11/14/2014 [facility] Protime 21.7 seconds High 12.1-14.9 [address] [place] [address] [phone] Inr 1.9 High 0.9-1.1 54 Protime 10/31/2014 [facility] Protime 23.1 seconds High 12.1-14.9 [address] [place] [address] [phone] Inr 2.1 High 0.9-1.1 55 Protime 10/24/2014 [facility] Protime 22.3 seconds High 12.0-14.4 [address] [place] [address] [phone] Inr 2.0 High 0.9-1.1 56 Protime 10/17/2014 [facility] Protime 21.1 seconds High 12.1-14.9 [address] [place] [address] [phone] Inr 1.8 High 0.9-1.1 57 Basic Metabolic Panel 10/10/2014 [facility] Glucose 141 mg/dL High 74-106 [address] [place], [place] [address] [phone] BUN 14 mg/dL 7-18 Creatinine 1.1 mg/dL 0.6-1.3 Glom Filtration Rate, Estimate >60 mL/min >60 If >60 mL/min >60 58 BUN/Creat 12.7 ratio Sodium 137 mmol/L 136-145 Potassium 3.9 mmol/L 3.5-5.1 Chloride 105 mmol/L 98-107 Carbon Dioxide 25 mmol/L 21-32 Anion Gap 11 mEq/L 8-16 Calcium 8.8 mg/dL 8.5-10.1 Comprehensive Metabolic 10/10/2014 [facility] Glucose 141 mg/dL High 74-106 Panel [address] [place] [address] [phone] BUN 14 mg/dL 7-18 Creatinine 1.1 mg/dL 0.6-1.3 Glom Filtration Rate, Estimate >60 mL/min >60 If >60 mL/min >60 59 BUN/Creat 12.7 ratio Sodium 137 mmol/L 136-145 Potassium 3.9 mmol/L 3.5-5.1 Chloride 105 mmol/L 98-107 Carbon Dioxide 25 mmol/L 21-32 Anion Gap 11 mEq/L 8-16 Calcium 8.8 mg/dL 8.5-10.1 Total Protein 7.6 g/dL 6.4-8.2 Albumin 3.6 g/dL 3.4-5.0 Globulin 4.0 g/dL 1.9-4.3 Alb/Glob 0.9 ratio Bilirubin,Total 0.7 mg/dL 0.2-1.0 Sgot/Ast 14 U/L Low 15-37 60 SGPT/Alt 16 U/L 12-78 Alkaline Phosphatase 35 U/L Low 45-117 CBC W/Automated Diff 10/10/2014 [facility] White Blood 6.2 K/uL 3.4-10.[address] [place] [address] [phone] Red Blood Count 4.11 M/uL Low 4.20-5.80 Hemoglobin 12.2 gm/dL Low 12.8-17.0 Hematocrit 37.5 % Low 38.0-48.0 Mean Cell Volume 91.2 fl 80.0-96.0 Mean Corpuscular HGB 29.7 pg 27.0-33.0 Mean Corpuscular HGB Conc 32.5 g/dL 31.7-36.0 Platelet Count 207 K/uL 150-400 Red Cell Distri Width SD 56.1 fl High 36-51 Red Cell Distri Width %CV 17.6 % High 11.6-15.8 Mean Platelet Volume 8.8 fL 6.6-10.6 Neut% 60.0 % 33.0-73.0 Lymph % 21.0 % 17.0-56.0 Owsley % 14.0 % High 0.0-10.0 Eo% 4.4 % 0.0-5.0 Bas% 0.6 % 0.1-1.0 Neut# 3.72 K/uL 1.8-7.0 Lymph # 1.30 K/uL 1.2-4.0 Owsley # 0.87 K/uL High 0.0-0.6 Eos # 0.27 K/uL 0.0-0.5 Baso # 0.04 K/uL Low 0.1-0.2 Protime 10/10/2014 [facility] Protime 15.6 seconds High 12.0-14.4 [address] [place] [address] [phone] Inr 1.2 High 0.9-1.1 61 Liver Function Tests 10/05/2012 [facility] Total Protein 7.8 g/dL 6.3-8.0 [address] [place] [address] [phone] Albumin 3.9 g/dL 3.5-5.0 Globulin 3.9 g/dL 1.9-4.3 Alb/Glob 1.0 ratio Bilirubin,Total 0.8 mg/dL 0.2-1.2 Bilirubin,Direct 0.2 mg/dL 0.1-0.4 Bilirubin,Indirect 0.6 mg/dL 0.0-0.9 Sgot/Ast 13 U/L Low 16-40 SGPT/Alt 25 U/L Low 30-65 Alkaline Phosphatase 42 U/L Low 50-136 LDL Cholesterol 10/05/2012 [facility] Cholesterol 156 mg/dL 120-200 Profile [address] [place] [address] [phone] Triglycerides 130 mg/dL 16-231 HDL Cholesterol 45 mg/dL 29-83 LDL-Cholesterol 85 mg/dL 62-185 Basic Metabolic Panel 04/01/2010 [facility] Glucose 119 mg/dL High 76-115 [address] [place] [address] [phone] BUN 14 mg/dL 5-23 Creatinine 0.9 mg/dL 0.5-1.4 Glom Filtration Rate, Estimate >60 mL/min >60 If >60 mL/min >60 62 BUN/Creat 15.5 Sodium 138 mEq/L 136-145 Potassium 4.4 mEq/L 3.5-5.1 Chloride 103 mEq/L 98-107 Carbon Dioxide 28 mEq/L 21-32 Anion Gap 11 mEq/L 8-16 Calcium 9.0 mg/dL 8.5-10.1 CBC W/Automated Diff 04/01/2010 [facility] White Blood 7.9 K/uL 3.4-10.[address] [place] [address] [phone] Red Blood Count 4.24 M/uL 4.20-5.80 Hemoglobin 13.1 gm/dL 12.8-17.0 Hematocrit 39.9 % 38.0-48.0 Mean Cell Volume 94.1 fl 80.0-96.0 Mean Corpuscular HGB 30.9 pg 27.0-33.0 Mean Corpuscular HGB Conc 32.8 g/dL 31.7-36.0 Platelet Count 197 K/uL 150-400 Red Cell Distri Width %CV 15.2 % 11.6-15.8 Mean Platelet Volume 9.3 fL 6.6-10.6 Neut% 60.2 % 33.0-73.0 Lymph % 25.1 % 17.0-56.0 Owsley % 11.0 % High 0.0-10.0 Eo% 3.3 % 0.0-5.0 Bas% 0.4 % 0.1-1.0 Neut# 4.8 K/uL 1.8-7.0 Lymph # 2.0 K/uL 1.2-4.0 Owsley # 0.9 K/uL High 0.0-0.6 Eos # 0.3 K/uL 0.0-0.5 Baso # 0.0 K/uL Low 0.1-0.2 Red Cell Distri Width SD 50 fl 36-51 1 I48.2 Z79.01 2 THERAPEUTIC INR RANGE: 2.0 - 3.0 DVT, Pulmonary embolus, prophylaxis against venous thrombosis or systemic embolization in high risk patients. 2.5 - 3.5 Mechanical heart valves 3 THERAPEUTIC INR RANGE: 2.0 - 3.0 DVT, Pulmonary embolus, prophylaxis against venous thrombosis or systemic embolization in high risk patients. 2.5 - 3.5 Mechanical heart valves 4 THERAPEUTIC INR RANGE: 2.0 - 3.0 DVT, Pulmonary embolus, prophylaxis against venous thrombosis or systemic embolization in high risk patients. 2.5 - 3.5 Mechanical heart valves 5 THERAPEUTIC INR RANGE: 2.0 - 3.0 DVT, Pulmonary embolus, prophylaxis against venous thrombosis or systemic embolization in high risk patients. 2.5 - 3.5 Mechanical heart valves 6 THERAPEUTIC INR RANGE: 2.0 - 3.0 DVT, Pulmonary embolus, prophylaxis against venous thrombosis or systemic embolization in high risk patients. 2.5 - 3.5 Mechanical heart valves 7 THERAPEUTIC INR RANGE: 2.0 - 3.0 DVT, Pulmonary embolus, prophylaxis against venous thrombosis or systemic embolization in high risk patients. 2.5 - 3.5 Mechanical heart valves 8 THERAPEUTIC INR RANGE: 2.0 - 3.0 DVT, Pulmonary embolus, prophylaxis against venous thrombosis or systemic embolization in high risk patients. 2.5 - 3.5 Mechanical heart valves 9 THERAPEUTIC INR RANGE: 2.0 - 3.0 DVT, Pulmonary embolus, prophylaxis against venous thrombosis or systemic embolization in high risk patients. 2.5 - 3.5 Mechanical heart valves 10 THERAPEUTIC INR RANGE: 2.0 - 3.0 DVT, Pulmonary embolus, prophylaxis against venous thrombosis or systemic embolization in high risk patients. 2.5 - 3.5 Mechanical heart valves 11 THERAPEUTIC INR RANGE: 2.0 - 3.0 DVT, Pulmonary embolus, prophylaxis against venous thrombosis or systemic embolization in high risk patients. 2.5 - 3.5 Mechanical heart valves 12 THERAPEUTIC INR RANGE: 2.0 - 3.0 DVT, Pulmonary embolus, prophylaxis against venous thrombosis or systemic embolization in high risk patients. 2.5 - 3.5 Mechanical heart valves 13 I48.0 Z79.01 14 THERAPEUTIC INR RANGE: 2.0 - 3.0 DVT, Pulmonary embolus, prophylaxis against venous thrombosis or systemic embolization in high risk patients. 2.5 - 3.5 Mechanical heart valves 15 THERAPEUTIC INR RANGE: 2.0 - 3.0 DVT, Pulmonary embolus, prophylaxis against venous thrombosis or systemic embolization in high risk patients. 2.5 - 3.5 Mechanical heart valves 16 THERAPEUTIC INR RANGE: 2.0 - 3.0 DVT, Pulmonary embolus, prophylaxis against venous thrombosis or systemic embolization in high risk patients. 2.5 - 3.5 Mechanical heart valves 17 THERAPEUTIC INR RANGE: 2.0 - 3.0 DVT, Pulmonary embolus, prophylaxis against venous thrombosis or systemic embolization in high risk patients. 2.5 - 3.5 Mechanical heart valves 18 THERAPEUTIC INR RANGE: 2.0 - 3.0 DVT, Pulmonary embolus, prophylaxis against venous thrombosis or systemic embolization in high risk patients. 2.5 - 3.5 Mechanical heart valves 19 THERAPEUTIC INR RANGE: 2.0 - 3.0 DVT, Pulmonary embolus, prophylaxis against venous thrombosis or systemic embolization in high risk patients. 2.5 - 3.5 Mechanical heart valves 20 THERAPEUTIC INR RANGE: 2.0 - 3.0 DVT, Pulmonary embolus, prophylaxis against venous thrombosis or systemic embolization in high risk patients. 2.5 - 3.5 Mechanical heart valves 21 THERAPEUTIC INR RANGE: 2.0 - 3.0 DVT, Pulmonary embolus, prophylaxis against venous thrombosis or systemic embolization in high risk patients. 2.5 - 3.5 Mechanical heart valves 22 THERAPEUTIC INR RANGE: 2.0 - 3.0 DVT, Pulmonary embolus, prophylaxis against venous thrombosis or systemic embolization in high risk patients. 2.5 - 3.5 Mechanical heart valves 23 THERAPEUTIC INR RANGE: 2.0 - 3.0 DVT, Pulmonary embolus, prophylaxis against venous thrombosis or systemic embolization in high risk patients. 2.5 - 3.5 Mechanical heart valves 24 THERAPEUTIC INR RANGE: 2.0 - 3.0 DVT, Pulmonary embolus, prophylaxis against venous thrombosis or systemic embolization in high risk patients. 2.5 - 3.5 Mechanical heart valves 25 THERAPEUTIC INR RANGE: 2.0 - 3.0 DVT, Pulmonary embolus, prophylaxis against venous thrombosis or systemic embolization in high risk patients. 2.5 - 3.5 Mechanical heart valves 26 THERAPEUTIC INR RANGE: 2.0 - 3.0 DVT, Pulmonary embolus, prophylaxis against venous thrombosis or systemic embolization in high risk patients. 2.5 - 3.5 Mechanical heart valves 27 THERAPEUTIC INR RANGE: 2.0 - 3.0 DVT, Pulmonary embolus, prophylaxis against venous thrombosis or systemic embolization in high risk patients. 2.5 - 3.5 Mechanical heart valves 28 THERAPEUTIC INR RANGE: 2.0 - 3.0 DVT, Pulmonary embolus, prophylaxis against venous thrombosis or systemic embolization in high risk patients. 2.5 - 3.5 Mechanical heart valves 29 THERAPEUTIC INR RANGE: 2.0 - 3.0 DVT, Pulmonary embolus, prophylaxis against venous thrombosis or systemic embolization in high risk patients. 2.5 - 3.5 Mechanical heart valves 30 THERAPEUTIC INR RANGE: 2.0 - 3.0 DVT, Pulmonary embolus, prophylaxis against venous thrombosis or systemic embolization in high risk patients. 2.5 - 3.5 Mechanical heart valves 31 THERAPEUTIC INR RANGE: 2.0 - 3.0 DVT, Pulmonary embolus, prophylaxis against venous thrombosis or systemic embolization in high risk patients. 2.5 - 3.5 Mechanical heart valves 32 THERAPEUTIC INR RANGE: 2.0 - 3.0 DVT, Pulmonary embolus, prophylaxis against venous thrombosis or systemic embolization in high risk patients. 2.5 - 3.5 Mechanical heart valves 33 Note: Persistent reduction for 3 months or more in an eGFR <60 mL/min/1.73 m2 defines CKD. Patients with eGFR values >/=60 mL/min/1.73 m2 may also have CKD if evidence of persistent proteinuria is present. The original MDRD equation for estimated GFR is not valid for patients less than 18 years of age. Additional information may be found at www.[facility].org. 34 THERAPEUTIC INR RANGE: 2.0 - 3.0 DVT, Pulmonary embolus, prophylaxis against venous thrombosis or systemic embolization in high risk patients. 2.5 - 3.5 Mechanical heart valves 35 THERAPEUTIC INR RANGE: 2.0 - 3.0 DVT, Pulmonary embolus, prophylaxis against venous thrombosis or systemic embolization in high risk patients. 2.5 - 3.5 Mechanical heart valves 36 THERAPEUTIC INR RANGE: 2.0 - 3.0 DVT, Pulmonary embolus, prophylaxis against venous thrombosis or systemic embolization in high risk patients. 2.5 - 3.5 Mechanical heart valves 37 THERAPEUTIC INR RANGE: 2.0 - 3.0 DVT, Pulmonary embolus, prophylaxis against venous thrombosis or systemic embolization in high risk patients. 2.5 - 3.5 Mechanical heart valves 38 THERAPEUTIC INR RANGE: 2.0 - 3.0 DVT, Pulmonary embolus, prophylaxis against venous thrombosis or systemic embolization in high risk patients. 2.5 - 3.5 Mechanical heart valves 39 THERAPEUTIC INR RANGE: 2.0 - 3.0 DVT, Pulmonary embolus, prophylaxis against venous thrombosis or systemic embolization in high risk patients. 2.5 - 3.5 Mechanical heart valves 40 THERAPEUTIC INR RANGE: 2.0 - 3.0 DVT, Pulmonary embolus, prophylaxis against venous thrombosis or systemic embolization in high risk patients. 2.5 - 3.5 Mechanical heart valves 41 THERAPEUTIC INR RANGE: 2.0 - 3.0 DVT, Pulmonary embolus, prophylaxis against venous thrombosis or systemic embolization in high risk patients. 2.5 - 3.5 Mechanical heart valves 42 THERAPEUTIC INR RANGE: 2.0 - 3.0 DVT, Pulmonary embolus, prophylaxis against venous thrombosis or systemic embolization in high risk patients. 2.5 - 3.5 Mechanical heart valves 43 THERAPEUTIC INR RANGE: 2.0 - 3.0 DVT, Pulmonary embolus, prophylaxis against venous thrombosis or systemic embolization in high risk patients. 2.5 - 3.5 Mechanical heart valves 44 STANDING ORDER- WEEKLY AND PRN 45 THERAPEUTIC INR RANGE: 2.0 - 3.0 DVT, Pulmonary embolus, prophylaxis against venous thrombosis or systemic embolization in high risk patients. 2.5 - 3.5 Mechanical heart valves 46 THERAPEUTIC INR RANGE: 2.0 - 3.0 DVT, Pulmonary embolus, prophylaxis against venous thrombosis or systemic embolization in high risk patients. 2.5 - 3.5 Mechanical heart valves 47 THERAPEUTIC INR RANGE: 2.0 - 3.0 DVT, Pulmonary embolus, prophylaxis against venous thrombosis or systemic embolization in high risk patients. 2.5 - 3.5 Mechanical heart valves 48 Is patient on heparin protocol? N Is patient on anticoagulants? Unknown QUERY: Anticoagulant Therapy? QUERY: Date of Last Dose: QUERY: Time of Last Dose: 49 Note: Persistent reduction for 3 months or more in an eGFR <60 mL/min/1.73 m2 defines CKD. Patients with eGFR values >/=60 mL/min/1.73 m2 may also have CKD if evidence of persistent proteinuria is present. The original MDRD equation for estimated GFR is not valid for patients less than 18 years of age. Additional information may be found at www.kdoqi.org. 50 THERAPEUTIC INR RANGE: 2.0 - 3.0 DVT, Pulmonary embolus, prophylaxis against venous thrombosis or systemic embolization in high risk patients. 2.5 - 3.5 Mechanical heart valves 51 THERAPEUTIC INR RANGE: 2.0 - 3.0 DVT, Pulmonary embolus, prophylaxis against venous thrombosis or systemic embolization in high risk patients. 2.5 - 3.5 Mechanical heart valves 52 THERAPEUTIC INR RANGE: 2.0 - 3.0 DVT, Pulmonary embolus, prophylaxis against venous thrombosis or systemic embolization in high risk patients. 2.5 - 3.5 Mechanical heart valves 53 THERAPEUTIC INR RANGE: 2.0 - 3.0 DVT, Pulmonary embolus, prophylaxis against venous thrombosis or systemic embolization in high risk patients. 2.5 - 3.5 Mechanical heart valves 54 THERAPEUTIC INR RANGE: 2.0 - 3.0 DVT, Pulmonary embolus, prophylaxis against venous thrombosis or systemic embolization in high risk patients. 2.5 - 3.5 Mechanical heart valves 55 THERAPEUTIC INR RANGE: 2.0 - 3.0 DVT, Pulmonary embolus, prophylaxis against venous thrombosis or systemic embolization in high risk patients. 2.5 - 3.5 Mechanical heart valves 56 THERAPEUTIC INR RANGE: 2.0 - 3.0 DVT, Pulmonary embolus, prophylaxis against venous thrombosis or systemic embolization in high risk patients. 2.5 - 3.5 Mechanical heart valves 57 THERAPEUTIC INR RANGE: 2.0 - 3.0 DVT, Pulmonary embolus, prophylaxis against venous thrombosis or systemic embolization in high risk patients. 2.5 - 3.5 Mechanical heart valves 58 Note: Persistent reduction for 3 months or more in an eGFR <60 mL/min/1.73 m2 defines CKD. Patients with eGFR values >/=60 mL/min/1.73 m2 may also have CKD if evidence of persistent proteinuria is present. The original MDRD equation for estimated GFR is not valid for patients less than 18 years of age. Additional information may be found at www.kdoqi.org. 59 Note: Persistent reduction for 3 months or more in an eGFR <60 mL/min/1.73 m2 defines CKD. Patients with eGFR values >/=60 mL/min/1.73 m2 may also have CKD if evidence of persistent proteinuria is present. The original MDRD equation for estimated GFR is not valid for patients less than 18 years of age. Additional information may be found at www.kdoqi.org. 60 Values below the stated reference ranges of AST and ALT can be seen in normal populations. Clinical correlation is suggested. 61 THERAPEUTIC INR RANGE: 2.0 - 3.0 DVT, Pulmonary embolus, prophylaxis against venous thrombosis or systemic embolization in high risk patients. 2.5 - 3.5 Mechanical heart valves 62 Note: Persistent reduction for 3 months or more in an eGFR <60 mL/min/1.73 m2 defines CKD. Patients with eGFR values >/=60 mL/min/1.73 m2 may also have CKD if evidence of persistent proteinuria is present. The original MDRD equation for estimated GFR is not valid for patients less than 18 years of age. Additional information may be found at www.kdoqi.org. Procedures Date Code Description Status 12/15/2018 33291 Echocardiogram Complete Completed 08/10/2018 08310 Programming Single Pacemaker Completed 02/09/2018 16347 Dual Pacemaker Programming Anayisis, Review And Report Completed 12/23/2017 86543 EKG-Tracing And Report Completed 11/18/2017 27452 Echocardiogram Complete Completed 11/02/2017 29920 Stress Test Interpre And Report Only Completed 11/02/2017 98601 Stress Test Physician Super Only Completed 11/02/2017 63251 Myocardial Imaging Tomographic Multiple Study AT Rest Or Completed Stress 10/27/2017 35904 EKG-Tracing And Report Completed 08/14/2017 12309 Pacemaker/Cardio-Defibrillator Remote Data Acquistion Completed 08/14/2017 53097 Remote Interrigation Report Interr. Single, Dual Or Completed Multiple Lead 08/10/2017 61789 EKG-Tracing And Report Completed 11/25/2016 49910 Programming Single Pacemaker Completed 11/25/2016 64532 Programming Single Pacemaker Completed 07/28/2016 43688 EKG-Tracing And Report Completed 05/26/2016 95229 Remote Interrigation Report Interr. Single, Dual Or Completed Multiple Lead 05/26/2016 77523 Remote Interrigation Report Interr. Single, Dual Or Completed Multiple Lead 05/26/2016 85893 Pacemaker/Cardio-Defibrillator Remote Data Acquistion Completed 05/26/2016 89303 Pacemaker/Cardio-Defibrillator Remote Data Acquistion Completed 12/11/2015 73793 Programming Single Pacemaker Completed 12/11/2015 33378 Programming Single Pacemaker Completed 05/29/2015 45311 Programming Single Pacemaker Completed 05/29/2015 77669 Programming Single Pacemaker Completed 04/13/2015 92954 EKG-Tracing And Report Completed 03/27/2015 21496 Programming Single Pacemaker Completed 03/27/2015 75055 Programming Single Pacemaker Completed 02/22/2015 08852 Insert or replace pacemaker with transverse electrodes; Completed atrial 02/22/2015 11725 Anesthesia, Pacemaker Insertion Completed 10/09/2014 25506 Myocardial Imaging Tomographic Multiple Study AT Rest Or Completed Stress 10/09/2014 10597 Stress Test Physician Super Only Completed 10/09/2014 53364 Stress Test Physician Super Only Completed 10/09/2014 53529 Stress Test Interpre And Report Only Completed 10/05/2014 28509 EKG-Tracing And Report Completed 06/02/2014 30972 Echocardiogram Complete Completed 05/18/2014 65492 EKG-Tracing And Report Completed 11/11/2013 22786 EKG-Tracing And Report Completed 08/25/2013 51610 EKG-Tracing And Report Completed 08/09/2013 53628 Cardioversion External Completed 08/09/2013 68361 Transesophageal Echocardiogram Completed 08/09/2013 98608 Doppler Echocardiogram Complete Completed 08/09/2013 75225 Doppler ECHO Color Flow Mapping Completed 07/04/2013 05762 EKG-Tracing And Report Completed 05/17/2013 95628 Holter Monitor 24HR Inter/Report Completed 05/17/2013 31788 EKG-Tracing And Report Completed 04/11/2013 67601 EKG-Tracing And Report Completed 09/16/2011 26004 Myocardial Imaging Tomographic Multiple Study AT Rest Or Completed Stress 09/16/2011 24924 Stress Test Physician Super Only Completed 09/16/2011 66842 Stress Test Physician Super Only Completed 09/16/2011 62998 Stress Test Interpre And Report Only Completed 09/08/2011 71766 EKG-Tracing And Report Completed 11/02/2010 97319 Echocardiogram Complete Completed 08/07/2010 02971 Stress Test Interpre And Report Only Completed 08/07/2010 61620 Stress Test Physician Super Only Completed 04/16/2010 06736 EKG-Tracing And Report Completed 04/01/2010 99219 EKG-Tracing And Report Completed 02/20/2010 64679 Stress Test Interpre And Report Only Completed 02/20/2010 99804 Stress Test Physician Super Only Completed 02/20/2010 64886 Myocardial Imaging Tomographic Multiple Study AT Rest Or Completed Stress 02/04/2008 23112 Stress Test Interpre And Report Only Completed 02/04/2008 51389 Stress Test Physician Super Only Completed Encounters Type Date Location Provider Dx Diagnosis Office Visit 12/30/2018 Cardiology Office Lg Briones I25.[address] 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 I10 Essential (primary) hypertension E78.5 Hyperlipidemia, unspecified Office Visit 12/23/2017 10:40a Cardiology Office Michelle José I25.10 [facility] Duran, ANA, disease of [employer] crow coronary artery w/o ang pctrs I48.2 Chronic atrial fibrillation I49.5 Sick sinus syndrome I10 Essential (primary) hypertension E78.5 Hyperlipidemia, unspecified Z95.0 Presence of cardiac pacemaker Office Visit 11/23/2017 10:40a Cardiology Office Michelle José I25.10 [facility] heart ANA Garzon, disease of [employer] crow coronary artery w/o ang pctrs I48.2 Chronic atrial fibrillation I49.5 Sick sinus syndrome I10 Essential (primary) hypertension E78.5 Hyperlipidemia, unspecified Z95.0 Presence of cardiac pacemaker Office Visit 10/27/2017 2:40p Cardiology Office Michelle José I25.10 [facility] heart ANA Garzon, disease of [employer] crow coronary artery w/o ang pctrs I48.2 Chronic atrial fibrillation I49.5 Sick sinus syndrome I10 Essential (primary) hypertension E78.5 Hyperlipidemia, unspecified Z95.0 Presence of cardiac pacemaker R00.0 Tachycardia, unspecified Office Visit 08/10/2017 Cardiology Michelle José I48.2 Chronic atrial 10:00a Office ANA Garzon, fibrillation [employer] I25.10 [facility] heart 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 I10 Essential (primary) hypertension E78.5 Hyperlipidemia, unspecified I49.5 Sick sinus syndrome Z95.0 Presence of cardiac pacemaker Office Visit 01/26/2017 Cardiology Michelle José I48.2 Chronic atrial 9:40a Office ANA Garzon, fibrillation [employer] I25.10 [facility] heart 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 I10 Essential (primary) hypertension E78.5 Hyperlipidemia, unspecified I49.5 Sick sinus syndrome Z95.0 Presence of cardiac pacemaker Office Visit 07/28/2016 Cardiology Lg Briones I48.2 Chronic atrial 1:40p Office Oliva Polanco, [facility] fibrillation Z79.01 [facility] (current) use of anticoagulants I49.5 Sick sinus syndrome R60.0 Localized edema Z95.0 Presence of cardiac pacemaker I25.10 [facility] heart 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 Office Visit 01/17/2016 2:00p Cardiology Office Michelle José R60.0 Localized edema ANA Garzon, [employer] I48.2 Chronic atrial fibrillation I25.10 [facility] heart 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 I49.5 Sick sinus syndrome Z95.0 Presence of cardiac pacemaker Office Visit 12/27/2015 9:10a Cardiology Office Lg Briones R60.0 Localized edema Oliva Polanco, FACC I48.2 Chronic atrial fibrillation I25.10 [facility] heart 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 Office Visit 06/18/2015 Cardiology Michelle José I48.2 Chronic atrial 9:30a Office ANA Garzon, fibrillation [employer] I49.5 Sick sinus syndrome I25.10 [facility] heart 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 I10 Essential (primary) hypertension E78.5 Hyperlipidemia, unspecified Z95.0 Presence of cardiac pacemaker Office Visit 04/13/2015 Cardiology Lg Briones 427.31 Atrial 10:10a Office Oliva Polanco, FACC Fibrillation 427.81 Sinoatrial Node Dysfunction V45.01 Cardiac Pacemaker In Situ Postsurgical 401.1 Hypertension Benign 414.00 Coronary Atherosclerosis Unspec Type Vessel [place]/Graft Office Visit 02/08/2015 Cardiology Lg Briones 427.31 Atrial 10:30a Office Oliva Polanco, FACC Fibrillation V58.61 Anticoagulants Fpc (Current) Use Encounter 401.1 Hypertension Benign 272.4 Hyperlipidemia Other Unspec 414.00 Coronary Atherosclerosis Unspec Type Vessel [place]raft Office Visit 11/07/2014 Cardiology Lakshmi Kolb 414.00 Coronary 2:40p Office A., ANP Atherosclerosis Unspec Type Vessel [place]raft 427.31 Atrial Fibrillation V58.61 Anticoagulants Labor Representative (Current) Use Encounter 401.1 Hypertension Benign 272.4 Hyperlipidemia Other Unspec Office Visit 10/06/2014 11:15a Cardiology Office Erika Islas 427.31 Atrial MD Fibrillation V58.61 Anticoagulants Fpc (Current) Use Encounter Office Visit 10/05/2014 Cardiology Lg Briones 427.31 Atrial 11:40a Office Oliva Polanco, FACC Fibrillation 414.00 Coronary Atherosclerosis Unspec Type Vessel [place]raft 401.1 Hypertension Benign Office Visit 06/20/2014 Cardiology Lakshmi Kolb 414.00 Coronary 10:10a Office A., ANP Atherosclerosis Unspec Type Vessel [place]raft 427.31 Atrial Fibrillation 272.4 Hyperlipidemia Other Unspec 401.1 Hypertension Benign 782.3 Edema 424.0 Mitral Valve Disorder Office Visit 05/18/2014 Cardiology Huang Herron 414.00 Coronary 10:15a Office MD Marilyn, PhD Atherosclerosis Unspec Type Vessel [place]raft Office Visit 11/11/2013 Cardiology Huang Herron 414.00 Coronary 9:40a Office MD Marilyn, PhD Atherosclerosis Unspec Type Vessel [place]raft 427.31 Atrial Fibrillation 272.4 Hyperlipidemia Other Unspec 401.1 Hypertension Benign Office Visit 08/25/2013 10:00a Cardiology Office Huang Herron 427.Kaz Sanders MD, PhD Fibrillation 414.00 Coronary Atherosclerosis Unspec Type Vessel [place]raft 272.4 Hyperlipidemia Other Unspec 401.1 Hypertension Benign Office Visit 07/04/2013 8:50a Cardiology Office Lakshmi Kolb 427.31 Atrial A., ANP Fibrillation 414.00 Coronary Atherosclerosis Unspec Type Vessel [place]raft 272.4 Hyperlipidemia Other Unspec 401.1 Hypertension Benign Office Visit 06/01/2013 2:00p Cardiology Office Huang Herron 427.Kaz Sanders MD, PhD Fibrillation 414.00 Coronary Atherosclerosis Unspec Type Vessel [place]raft 272.4 Hyperlipidemia Other Unspec 401.1 Hypertension Benign Office Visit 05/17/2013 Cardiology Lakshmi Kolb 414.00 Coronary 9:30a Office A., ANP Atherosclerosis Unspec Type Vessel [place]raft 272.4 Hyperlipidemia Other Unspec 427.31 Atrial Fibrillation 401.1 Hypertension Benign 786.59 Pain Chest Other Office Visit 04/11/2013 Cardiology Huang Herron 414.00 Coronary 10:40a Office MD Marilyn, PhD Atherosclerosis Unspec Type Vessel [place]raft 272.4 Hyperlipidemia Other Unspec 401.1 Hypertension Benign 427.31 Atrial Fibrillation Office Visit 10/11/2012 Cardiology Lakshmi Kolb 414.00 Coronary 10:30a Office A., ANP Atherosclerosis Unspec Type Vessel [place]raft 272.4 Hyperlipidemia Other Unspec 401.1 Hypertension Benign 786.59 Pain Chest Other 443.9 Peripheral Vascular Disease Unspec Office Visit 04/09/2012 Cardiology Huang Herron 414.00 Coronary 10:40a Office MD Marilyn, PhD Atherosclerosis Unspec Type Vessel [place]raft 272.4 Hyperlipidemia Other Unspec 401.1 Hypertension Benign Office Visit 10/10/2011 10:30a Cardiology Office Lakshmi Kolb A., 786.59 Pain Chest ANP Other 443.9 Peripheral Vascular Disease Unspec 414.00 Coronary Atherosclerosis Unspec Type Vessel [place]raft 272.4 Hyperlipidemia Other Unspec 401.1 Hypertension Benign Office Visit 09/08/2011 9:30a Cardiology Office Huang Herron, 786.59 Pain Chest MD, PhD Other 443.9 Peripheral Vascular Disease Unspec 414.00 Coronary Atherosclerosis Unspec Type Vessel [place]raft 272.4 Hyperlipidemia Other Unspec 401.1 Hypertension Benign Office Visit 01/27/2011 Cardiology Huang Herron 414.00 Coronary 10:20a Office MD Marilyn, PhD Atherosclerosis Unspec Type Vessel [place]raft 272.4 Hyperlipidemia Other Unspec 401.1 Hypertension Benign Office Visit 10/25/2010 Cardiology Huang Herron 414.00 Coronary 1:00p Office MD Marilyn, PhD Atherosclerosis Unspec Type Vessel [place]raft 272.4 Hyperlipidemia Other Unspec 401.0 Hypertension Malignant Office Visit 10/10/2010 Cardiology Huang Herron 414.00 Coronary 12:40p Office MD Marilyn, PhD Atherosclerosis Unspec Type Vessel [place]raft 272.4 Hyperlipidemia Other Unspec 401.0 Hypertension Malignant Office Visit 07/15/2010 Cardiology Anselmo, 414.00 Coronary 8:50a Office Lg Polanco M.D., Atherosclerosis FACC Unspec Type Vessel [place]raft 272.4 Hyperlipidemia Other Unspec 401.1 Hypertension Benign Office Visit 04/16/2010 Cardiology José Michelle 414.00 Coronary 9:20a Office Duran, MSN, Atherosclerosis [employer] Unspec Type Vessel [place]raft 272.4 Hyperlipidemia Other Unspec 401.1 Hypertension Benign Office Visit 04/01/2010 Cardiology Anselmo, 414.00 Coronary 11:10a Office Lg Polanco M.D., Atherosclerosis FACC Unspec Type Vessel [place]raft 272.4 Hyperlipidemia Other Unspec 401.1 Hypertension Benign Plan of Treatment Future Appointment(s):06/30/2019 10:40 am - Lg Briones M.D., FACC at Cardiology [id number]/08/2019 9:45 am - Spring Nieves PA at Cardiology Knzqwi9712/30/2018 - Lg Briones M.D., FACCI25.10 Atherosclerotic heart disease of crow coronary artery withComments:s/p RCA and later Ramus EMMANUEL. No angina. No changes in the management.I48.2 Chronic atrial fibrillationNew Labs: PT W/Inr, Scheduled: 01/19/19Comments:No bleeding on coumadin. Rate is mcwfqC89.0 Presence of cardiac pacemakerComments:100% V puqxysT91.21 Male erectile disorderComments:He will try to buy viagra in [place].I47.2 Ventricular tachycardiaComments:Longest episode 8 beats. No changes in the managementAllFollow up:Follow up visit in 6 months.
[2019-01-06 20:24] VITALS: BP 120/62
--- NOTE | 2019-01-06 20:36 | UC ---
Minor Trauma HPI - HPI Summary HPI Summary: Pt presents with c/o pain to left side of jaw, abrasion to left medial wrist and left knee. Pt reports that his left mid jaw was swollen immediately post fall. Pt states that swelling has resolved. Denies inability to open and close, denies hitting head, LOC. Pt remembers fall and denies any loose teeth . Pt wears dentures. - History of Current Complaint Chief Complaint: UCGeneralIllness Stated Complaint: FACIAL INJURY S/P FALL Time Seen by Provider: 01/06/19 20:23 Hx Obtained From: Patient Onset/Duration: Sudden Onset, Still Present Onset Of Pain: Immediate Severity Initially: Moderate Severity Currently: Mild Pain Intensity: 1 Mechanism Of Injury: Fall From A Standing Position Aggravating Factor(s): Nothing Alleviating Factor(s): Rest - Risk Factors Penetrating Injury Risk Factors: Negative - Allergies/Home Medications Allergies/Adverse Reactions: Allergies Allergy/AdvReac Type Severity Reaction Status Date / Time cimetidine Allergy Unknown Verified 01/06/19 20:16 Reaction Details hydroxychloroquine Allergy Unknown Verified 01/06/19 20:16 Reaction Details leflunomide Allergy Unknown Verified 01/06/19 20:16 Reaction Details Sulfa (Sulfonamide Allergy Unknown Verified 01/06/19 20:16 Antibiotics) Reaction Details Home Medications: Home Medications Methotrexate TAB* 6 tab WEEKLY 01/06/19 [History Confirmed 01/06/19] PMH/Surg Hx/FS Hx/Imm Hx Previously Healthy: Yes Cardiovascular History: Cardiac Disease, Hypertension - Surgical History Surgical History: Yes Surgery Procedure, Year, and Place: hemicholectomy- colostomy surgery with reversal. nasal. vasectomy. R TKA - Family History Known Family History: Positive: Cardiac Disease, Hypertension, Other - father had RA, at age 70. Mother had mental illness and [place] - Social History Occupation: Retired Lives: With Family Alcohol Use: Rare Substance Use Type: None Smoking Status (MU): Former Smoker Amount Used/How Often: 3 PPD Length of Time of Smoking/Using Tobacco: 30 YEARS Have You Smoked in the Last Year: No When Did the Patient Quit Smoking/Using Tobacco: Household Exposure Type: Cigarettes - Immunization History Most Recent Influenza Vaccination: 2012 Most Recent Tetanus Shot: 2012 Most Recent Pneumonia Vaccination: 2005 Review of Systems All Other Systems Reviewed And Are Negative: Yes Constitutional: Positive: Negative Skin: Positive: Other - abrasion, to left wrist and left knee Eyes: Positive: Negative ENT: Positive: Negative Respiratory: Positive: Negative Cardiovascular: Positive: Negative Gastrointestinal: Positive: Negative Genitourinary: Positive: Negative Motor: Positive: Negative Neurovascular: Positive: Negative Musculoskeletal: Positive: Arthralgia - left jaw, Edema - mild swelling at mid jaw left side Neurological: Positive: Negative Psychological: Positive: Negative Is Patient Immunocompromised?: No Physical Exam Triage Information Reviewed: Yes Appearance: Well-Appearing Vital Signs: Initial Vital Signs Temp 98.4 F 01/06/19 20:20 Pulse 65 01/06/19 20:20 Resp 16 01/06/19 20:20 BP 120/62 01/06/19 20:20 Pulse Ox 98 01/06/19 20:20 Vital Signs Reviewed: Yes Eye Exam: Normal ENT Exam: Normal ENT: Positive: Normal ENT inspection Dental Exam: Normal, Other - no TMJ slippage, no loose teeth, no swelling do difficulty opening and closing mouth. co c/o pain at injury site. Neck exam: Normal Neck: Positive: Supple, Nontender, No Lymphadenopathy Respiratory Exam: Normal Respiratory: Positive: No respiratory distress Cardiovascular Exam: Normal Musculoskeletal Exam: Normal Musculoskeletal: Positive: Strength Intact, ROM Intact, No Edema Neurological Exam: Normal Psychological Exam: Normal Skin Exam: Other - superficial abrasion to left medial wrist, and left knee. Minor Trauma Course/Dx - Differential Dx/Diagnosis Differential Diagnosis/HQI/PQRI: Abrasion(s), Contusion(s), Fracture Provider Diagnosis: Contusion of jawline, Abrasion of left wrist, Abrasion of left knee Discharge - Sign-Out/Discharge Documenting (check all that apply): Patient Departure All imaging exams completed and their final reports reviewed: No Studies - Discharge Plan Condition: Stable Disposition: HOME Patient Education Materials: Fall Prevention for Older Adults (ED), Ice Pack Application (ED), Facial Contusion (ED) Referrals: Pino Espinosa DO [Primary Care Provider] - As Soon As Possible - Billing Disposition and Condition Condition: STABLE Disposition: Home
== END 2019-01-06 20:44 | disposition home or self-care (01) ==
LOC: UCCORT 20:04
DX: S00.83XA Contusion of other part of head, initial encounter (principal); S60.812A Abrasion of left wrist, initial encounter; S80.212A Abrasion, left knee, initial encounter; W19.XXXA Unspecified fall, initial encounter; I11.9 Hypertensive heart disease without heart failure; Z88.8 Allergy status to other drugs, medicaments and biological substances; Z88.2 Allergy status to sulfonamides; Z87.891 Personal history of nicotine dependence
CPT/HCPCS: 99212; G0463

== ENCOUNTER 2019-02-01 11:10 | Emergency (ER) | payer MEDICARE ==
[2019-02-01 11:57] VITALS: BP 138/68
--- NOTE | 2019-02-01 12:08 | UC ---
Hip/Pelvis Pain - History Of Current Complaint Chief Complaint: UCBackPain Stated Complaint: LT HIP PAIN Time Seen by Provider: 02/01/19 12:07 Pain Intensity: 6 - Allergies/Home Medications Allergies/Adverse Reactions: Allergies Allergy/AdvReac Type Severity Reaction Status Date / Time cimetidine Allergy Unknown Verified 02/01/19 11:57 Reaction Details hydroxychloroquine Allergy Unknown Verified 02/01/19 11:57 Reaction Details leflunomide Allergy Unknown Verified 02/01/19 11:57 Reaction Details Sulfa (Sulfonamide Allergy Unknown Verified 02/01/19 11:57 Antibiotics) Reaction Details Home Medications: Home Medications Clopidogrel TAB* [Plavix TAB*] 1 tab PO DAILY 02/01/19 [History Confirmed ] PMH/Surg Hx/FS Hx/Imm Hx - Surgical History Surgical History: Yes Surgery Procedure, Year, and Place: hemicholectomy- colostomy surgery with reversal. nasal. vasectomy. R TKA - Family History Known Family History: Positive: Cardiac Disease, Hypertension, Other - father had RA, at age 70. Mother had mental illness and [place] - Social History Alcohol Use: Rare Substance Use Type: None Smoking Status (MU): Former Smoker Amount Used/How Often: 3 PPD Length of Time of Smoking/Using Tobacco: 30 YEARS Have You Smoked in the Last Year: No When Did the Patient Quit Smoking/Using Tobacco: Household Exposure Type: Cigarettes - Immunization History Most Recent Influenza Vaccination: 2012 Most Recent Tetanus Shot: 2012 Most Recent Pneumonia Vaccination: 2005 Physical Exam Vital Signs: Initial Vital Signs Temp 97.6 F 02/01/19 11:51 Pulse 70 02/01/19 11:51 Resp 18 02/01/19 11:51 BP 138/68 02/01/19 11:51 Pulse Ox 100 02/01/19 11:51 Discharge - Discharge Plan Referrals: Pino Espinosa DO [Primary Care Provider] -
--- NOTE | 2019-02-01 13:08 | UC ---
Back Pain HPI - HPI Summary HPI Summary: 73 y/o male presents to the urgent care c/o Pt started having back pain 2-3 days ago, the pain is now in his L hip going down into his leg. Pt states it is painful for him to walk, and no particular position provides him any relief. - History of Current Complaint Chief Complaint: UCBackPain Stated Complaint: LT HIP PAIN Time Seen by Provider: 02/01/19 12:07 Hx Obtained From: Patient Pain Intensity: 6 - Allergies/Home Medications Allergies/Adverse Reactions: Allergies Allergy/AdvReac Type Severity Reaction Status Date / Time cimetidine Allergy Unknown Verified 02/01/19 11:57 Reaction Details hydroxychloroquine Allergy Unknown Verified 02/01/19 11:57 Reaction Details leflunomide Allergy Unknown Verified 02/01/19 11:57 Reaction Details Sulfa (Sulfonamide Allergy Unknown Verified 02/01/19 11:57 Antibiotics) Reaction Details Home Medications: Home Medications Clopidogrel TAB* [Plavix TAB*] 1 tab PO DAILY 02/01/19 [History Confirmed ] PMH/Surg Hx/FS Hx/Imm Hx - Surgical History Surgical History: Yes Surgery Procedure, Year, and Place: hemicholectomy- colostomy surgery with reversal. nasal. vasectomy. R TKA - Family History Known Family History: Positive: Cardiac Disease, Hypertension, Other - father had RA, at age 70. Mother had mental illness and DE - Social History Alcohol Use: Rare Substance Use Type: None Smoking Status (MU): Former Smoker Amount Used/How Often: 3 PPD Length of Time of Smoking/Using Tobacco: 30 YEARS Have You Smoked in the Last Year: No When Did the Patient Quit Smoking/Using Tobacco: Household Exposure Type: Cigarettes - Immunization History Most Recent Influenza Vaccination: 2012 Most Recent Tetanus Shot: 2012 Most Recent Pneumonia Vaccination: 2005 Physical Exam Vital Signs: Initial Vital Signs Temp 97.6 F 02/01/19 11:51 Pulse 70 02/01/19 11:51 Resp 18 02/01/19 11:51 BP 138/68 02/01/19 11:51 Pulse Ox 100 02/01/19 11:51 Back Pain Course/Dx - Differential Dx/Diagnosis Differential Diagnosis/HQI/PQRI: Arthritis, Cauda Equina Syndrome, Compressive Cord Syndrome, Fracture, Osteoporosis, Renal Colic, Strain, Sprain Provider Diagnosis: Degenerative disc disease, lumbar, Osteoarthritis, hip, bilateral, Spondylolisthesis at L5-S1 level Discharge - Sign-Out/Discharge Documenting (check all that apply): Patient Departure - D/C home All imaging exams completed and their final reports reviewed: Yes - Discharge Plan Condition: Stable Disposition: HOME Patient Education Materials: Degenerative Disc Disease (ED), Osteoarthritis (ED ) Referrals: Pino Espinosa DO [Primary Care Provider] - 3 Days Chiquita Holley Ae, RN [Registered Nurse] - 3 Days Additional Instructions: 1- Continue taken Tramadol PO you have at home 1 tab PO BID for pain. Medrol dose zofia as directed to alleviate symptoms 2 Avoid strenuous exercise or heavy lifting. Wear a back support. 3- Please call Spinal Nurse Navigator: Jaylene Holley: [phone] for further management of your Degenerative disc disease and herniated discs. 4- Also f/u w/ your Stonecutter for further management in your Rheumatoid arthritis - Billing Disposition and Condition Condition: STABLE Disposition: Home
== END 2019-02-01 13:44 | disposition home or self-care (01) ==
LOC: UCCORT 11:10
DX: M51.36 Other intervertebral disc degeneration, lumbar region (principal); M16.0 Bilateral primary osteoarthritis of hip; M43.17 Spondylolisthesis, lumbosacral region; Z87.891 Personal history of nicotine dependence
CPT/HCPCS: 72110; 99212; G0463

== ENCOUNTER 2019-08-03 09:27 | Emergency (ER) | payer MEDICARE ==
--- OUTSIDE RECORDS SUMMARY | 2019-08-03 09:39 | XMS REPORT | Continuity of Care Document ---
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 Lg Briones M.D., Onset: 04/13/2015 [facility] Cardiac pacemaker in situ Lg Briones M.D., Onset: 04/13/2015 [facility] Essential hypertension Michelle José, ANA, Onset: 06/18/2015 [facility] Chronic atrial fibrillation Michelle José, MSN, Onset: 06/18/2015 [facility] Atherosclerotic heart disease of Michelle José, ANA, Onset: 2014 [place] coronary artery without angina [facility] pectoris Edema Lg Briones M.D., Onset: 12/27/2015 [facility] Long-term current use of anticoagulant Lg Briones M.D., Onset: 12/2015 [facility] Psychogenic impotence Lg Briones M.D., Onset: 12/30/2018 [facility] Paroxysmal ventricular tachycardia Lg Briones M.D., Onset: 2018 [facility] Chronic atrial fibrillation, Lg Briones M.D., Onset: 06/30/2019 unspecified [facility] Social History Type Date Description Comments Sex Unknown Tobacco Use Start: Unknown End: Quit Unknown ETOH Use Occasionally consumes alcohol Tobacco Use Start: Unknown End: Patient is a former smoker Unknown Smoking Status Reviewed: 06/30/19 Patient is a former smoker Exercise Type/Frequency Exercises daily Exercise Type/Frequency Walks daily Allergies, Adverse Reactions, Alerts Active Allergies Reaction Severity Comments Date Tagamet Plaquenil Sulfa Drugs Medications Active Medications SIG Qnty Indications Ordering Provider Date Xarelto 1 by mouth every 30tabs Lg Briones 03/09/2019 20mg Tablets day Oliva Polanco, [facility] Aspirin 1 by mouth every 90tabs I25.10 Lg Briones 10/06/[address] rebecca Polanco M.D., [facility] Magnesium Oxide take one tablet 60tabs José, Michelle 08/10/2018 400mg by mouth twice a Duran, MSN, Tablets day [facility] Viagra Generic 1 by mouth every 14tabs Lg Briones 06/28/2018 50mg day as needed Oliva Polanco, [facility] Tablets Lasix 1 by mouth every 90tabs Lg Briones 12/27/2015 20mg Tablets day as needed Oliva Polanco, [facility] Pravastatin Sodium 1 by mouth every 20tabs E78.5 Lg Briones 2012 40mg day with two on Oliva Polanco, [facility] Tablets thursday Nitrostat 1 tab sl every 5 25tabs I25.10 Lg Briones 04/16/2010 0.4mg Tablets min x3 chest pain Oliva Polanco, [facility] Sub Folic Acid 1 po qd Lg Briones 1mg Tablets Oliva Polanco, [facility] Omeprazole 1 po qd Unknown 20mg Capsules Vitamin B-12 1 po qd Unknown 500mcg Tablets Actemra infusion q 4 Unknown 200mg/10ML weeks Solution Tramadol HCL take 1 to 2 Unknown 50mg tablets by mouth Tablets every 6 hours if needed for pain maximum daily dose of 8 Calcium 500 + D3 1 by mouth once a Unknown day [id number] Tablets Allopurinol 1 po qd ZhouNusrata, 100mg [facility] Tablets Methotrexate 6 tabs by mouth Unknown 2.5mg every week Tablets Colchicine 1 tablet as Unknown 0.6mg directed Tablets Immunizations Description No Information Available Vital Signs Date Vital Result Comment 06/30/2019 10:45am BP Systolic Sitting Left Arm 140 mmHg BP Diastolic Sitting Left Arm 80 mmHg Heart Rate 74 /min Respiratory Rate 16 /min Height 73 inches 6'1" Weight 200.00 lb BMI (Body Mass Index) 26.4 kg/m2 BSA (Body Surface Area) 2.15 m2 Ace body weight in kilograms 83 kg O2 Saturation Level with Exercise 99 % 12/30/2018 9:49am BP Systolic Sitting Left Arm 131 mmHg BP Diastolic Sitting Left Arm 87 mmHg Heart Rate 71 /min Respiratory Rate 18 /min Weight 213.00 lb O2 % BldC Oximetry 96 % ora Results Test Acquired Date Facility Test Result H/L Range Note PT W/Inr 03/09/2019 [facility] [address] [place] [address] [phone] PT W/Inr 03/02/2019 [facility] [address] [place] [address] [phone] PT W/Inr 02/16/2019 [facility] [address] [place] [address] [phone] PT W/Inr 02/01/2019 [facility] [address] [place] [address] [phone] PT W/Inr 01/25/2019 [facility] [address] [place] [address] [phone] PT W/Inr 01/18/2019 [facility] [address] [place] [address] [phone] PT W/Inr 12/30/2018 [facility] [address] [place] [address] [phone] Procedures Date Code Description Status 02/08/2019 84360 Programming Single Pacemaker Completed Medical Devices Description No Information Available Encounters Type Date Location Provider Dx Diagnosis Office Visit 06/30/2019 Cardiology Office Lg Briones Z95.0 Presence of 10:40a Oliva Polanco, [facility] cardiac pacemaker I47.2 Ventricular tachycardia I49.5 Sick sinus syndrome I25.10 Athscl heart disease of [place] coronary artery w/o ang pctrs I48.20 Chronic atrial fibrillation, unspecified Office Visit 12/30/2018 9:40a Cardiology Office Lg Briones I25.10 Athscl heart Oliva Polanco, [facility] disease of [place] coronary artery w/o ang pctrs I48.2 Chronic atrial fibrillation Z95.0 Presence of cardiac pacemaker F52.21 Male erectile disorder I47.2 Ventricular tachycardia Assessments Date Code Description Provider 06/30/2019 Z95.0 Presence of cardiac pacemaker Lg Briones M.D., [facility] 06/30/2019 I47.2 Ventricular tachycardia Lg Briones M.D., [facility] 06/30/2019 I49.5 Sick sinus syndrome Lg Briones M.D., [facility] 06/30/2019 I25.10 Atherosclerotic heart disease of Lg Briones M.D. , [place] coronary artery with [facility] 06/30/2019 I48.20 Chronic atrial fibrillation, Lg Briones M.D., unspecified [facility] 02/08/2019 Z95.0 Presence of cardiac pacemaker Erika Islas MD 02/08/2019 Z95.0 Presence of cardiac pacemaker [place], [facility] 02/08/2019 I47.2 Ventricular tachycardia Erika Islas MD 02/08/2019 I47.2 Ventricular tachycardia [place], [facility] 02/08/2019 I49.5 Sick sinus syndrome Erika Islas MD 02/08/2019 I49.5 Sick sinus syndrome [place], [place] 12/30/2018 I25.10 Atherosclerotic heart disease of Lg Briones M.D. , [place] coronary artery with [facility] 12/30/2018 I48.2 Chronic atrial fibrillation Lg Briones M.D., [facility] 12/30/2018 Z95.0 Presence of cardiac pacemaker Lg Briones M.D., [facility] 12/30/2018 F52.21 Male erectile disorder Lg Briones M.D., [facility] 12/30/2018 I47.2 Ventricular tachycardia Lg Briones M.D., [facility] Plan of Treatment Future Appointment(s):01/10/2020 10:00 am - Lg Briones M.D., [facility] at Cardiology Kifdwe1408/09/2019 9:15 am - [place], [facility] at Cardiology Cksnca6706/30/2019 - Lg Briones M.D., FACCZ95.0 Presence of cardiac pacemakerComments:100% V ljpilmR80.2 Ventricular tachycardiaComments:There is an episode of regular high rate run lasting about 30 beats. Because there is no A lead the mechanism is uncertain. No [id number] Sick sinus syndromeComments: VVI paced all the time without LV dysfunction.I25.10 Atherosclerotic heart disease of [place] coronary artery withComments:s/p RCA and later Ramus EMMANUEL. No angina. No changes in the management.I48.20 Chronic atrial fibrillation, unspecifiedComments:Rate controlled (paced). No bleeding on Xarelto plus ASA. I mentioned the Watchman device. He will think about itAllFollow up:Follow up visit in 6 months. Functional Status Functional Condition Comment Date Status Independent with all ADL's Active Glasses Active Independent with all IADL's Active Pacemaker Active Mental Status Description No Information Available Referrals Description No Information Available
--- OUTSIDE RECORDS SUMMARY | 2019-08-03 09:39 | XMS REPORT | Continuity of Care Document ---
:1945 External Reference #:[id number] Author Name JOHN Dhiloln (transmitted by agent of provider Shanna Mcnair) Address [address] [place] [id number] Care Team Providers Name Role Phone Caesar Biggs DO - Family Care Team Information Spotter [phone] [facility] - Physical Care Team Information Spotter Therapy Emeterio Herron MD - Care Team Information Spotter [phone] Cardiovascular Disease Pino Espinosa DO - Family Medicine Care Team Information Spotter Problems Active Problems Provider Date Rheumatoid arthritis Jose Marks M.D. Onset: 10/24/2010 Note: High grade rheumatoid-MTX plus biologic. Remicade clearly more effective than sq. 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 Onset: 09/2011 Lumbosacral spondylosis without myelopathy Jose Marks M.D. Onset: 2012 Osteoarthritis of knee Jose Marks M.D. Onset: 09/01/2013 Localized, primary osteoarthritis of the lower Jose Marks M.D. Onset: 11/2013 leg Localized, primary osteoarthritis Jose Marks M.D. Onset: 11/06/2014 Disorder of lumbar disc Jose Marks M.D. Onset: 11/06/2014 Taking medication Jose Marks M.D. Onset: 11/06/2014 Chest pain Jose Marks M.D. Onset: 11/06/2014 Taking medication JOHN Dhillon Onset: 10/01/2015 Social History Type Date Description Comments Sex Unknown ETOH Use Rarely consumes alcohol Tobacco Use Start: Unknown End: Unknown Patient is a former smoker quit at age 39 Smoking Status Reviewed: 06/06/19 Patient is a former smoker quit at age 39 Allergies, Adverse Reactions, Alerts Active Allergies Reaction Severity Comments Date Hydroxychloroquine muscle spasms Severe 10/24/2010 Leflunomide Urticaria 10/24/2010 Medications Active Medications SIG Qnty Indications Ordering Provider Date Medrol take as directed 21units M54.42 Marino Epperson, 06/06/2019 4mg 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 Solution weeks Z79.899 M05.79 Shingrix 2 doses 6 month 2units Z23 Marino Epperson, [facility] 08/09/2018 50mcg/0.5ML apart Suspension Rec Allopurinol 1 by mouth every 90tabs M10.9 Marino Epperson, [facility] 03/25/2018 100mg Tablets day Folic Acid 1 by mouth every 90tabs Z79.899 Marino Epperson, [facility] 03/11/2018 1mg Tablets day Methotrexate take 6 tablets 72tabs Z79.899 Marino Epperson, [facility] 03/11/2018 2.5mg Tablets every week M06.09 M05.79 Calcium 600-D 1 by mouth daily 90tabs Z79.52 Marino Epperson, 05/29/2016 [id number] 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 M79.662 Xarelto Unknown Sildenafil Citrate 1 by mouth 30 min before Unknown 25mg Tablets sexual activity as needed. max 1 dose in a day Magnesium-Oxide 1 by mouth every day Unknown 400(241.3mg) mg Tablets Multivitamin Unknown Tablets Aspir-81 only on days that not Unknown 81mg Tablets DR taking prednisone Lasix 20mg 1 by mouth every day x 5 Unknown Tablets days then use prn Pravastatin Sodium 1 tablet daily at bedtime 30tabs Unknown 40mg Tablets Nitrostat one sl q5min up to 3 doses 25tabs Unknown 0.4mg Tablets Sub prn Vitamin B-12 qd 1Month Unknown Natural 500mcg Tablets Omeprazole 1 po qd 30caps Unknown 20mg Capsules DR Medications Administered in Office Medication SIG Qnty Indications Ordering Provider Date Depomedrol 40MG Larisa Ramirez M.D. 05/09/2019 Injection Depomedrol 40MG Larisa Ramirez M.D. 07/26/2018 Injection Depomedrol 40MG Larisa Ramirez M.D. 02/19/2018 Injection PPD Injection Chapito Massey M.D. 08/12/2017 Depomedrol 80MG Ezio Jasso M.D. 03/31/2013 Injection Immunizations CPT Code Status Date Vaccine Reaction Lot # [id number] Given 05/10/2018 Influenza Virus Vaccine, [id number] Quadrivalent, Split, Preservative Free [id number] Given 09/07/2017 Pneumococcal Conjugate Vaccine no reaction noted [id number] Valent For Intramuscular Use [id number] Given 06/04/2017 Influenza Virus Vaccine, [id number] Quadrivalent, Split, Preservative Free 98899 Given 05/29/2016 Influ Virus Vaccine, [id number] Quadrivalent, Split Virus, [place] [address] Given 01/01/2016 Pneumococcal Conjugate Vaccine [id number] Valent For Intramuscular Use Vital Signs Date Vital Result Comment 06/06/2019 10:35am Height 73 inches 6'1" Weight 199.50 lb Heart Rate 87 /min BP Systolic 141 mmHg BP Diastolic 84 mmHg Body Temperature 96.8 F O2 % BldC Oximetry 97 % BMI (Body Mass Index) 26.3 kg/m2 05/09/2019 10:27am Height 73 inches 6'1" Weight 202.00 lb Heart Rate 83 /min BP Systolic 139 mmHg BP Diastolic 80 mmHg Respiratory Rate 15 /min Body Temperature 96.4 F Pain Level 1 BMI (Body Mass Index) 26.6 kg/m2 Results Test Date Facility Test Result H/L Range Note Comp Metabolic 05/12/2019 [facility] Sodium 136 mmol/L Normal 135-145 [address] [place] [address] [phone] Potassium 4.5 mmol/L Normal 3.5-5.0 Chloride 102 mmol/L Normal 101-111 Co2 Carbon Dioxide 25 mmol/L Normal 22-32 Anion Gap 9 mmol/L Normal 2-11 Glucose 92 mg/dL Normal 70-100 Blood Urea Nitrogen 24 mg/dL Normal 6-24 Creatinine 1.01 mg/dL Normal 0.67-1.17 BUN/Creatinine Ratio 23.8 High 8-20 Calcium 9.7 mg/dL Normal 8.6-10.3 Total Protein 7.0 g/dL Normal 6.4-8.9 Albumin 4.5 g/dL Normal 3.2-5.2 Globulin 2.5 g/dL Normal 2-4 Albumin/Globulin Ratio 1.8 Normal 1-3 Total Bilirubin 2.70 mg/dL High 0.2-1.0 Alkaline Phosphatase 24 U/L Low 34-104 Alt 16 U/L Normal 7-52 Ast 25 U/L Normal 13-39 Egfr Non- 72.2 >60 Egfr 87.4 >60 2 Laboratory test 05/12/2019 [facility] C Reactive < 1.00 Normal <8.01 [address] Protein mg/[place] [address] [phone] CBC Auto Diff 05/12/2019 [facility] White Blood 5.1 Normal 3.5 -10.[address] Count 10^3/[place] [address] [phone] Red Blood Count 4.17 10^6/uL Low 4.18-5.48 Hemoglobin 14.2 g/dL Normal 14.0-18.0 Hematocrit 42 % Normal 42-52 Mean Corpuscular Volume 101 fL High 80-94 Mean Corpuscular Hemoglobin 34 pg High 27-31 Mean Corpuscular HGB Conc 34 g/dL Normal 31-36 Red Cell Distribution Width 16 % High 10-15 Platelet Count 142 10^3/uL Low 150-450 Mean Platelet Volume 7.5 fL Normal 7.4-10.4 Abs Neutrophils 3.4 10^3/uL Normal 1.5-7.7 Abs Lymphocytes 0.9 10^3/uL Low 1.0-4.8 Abs Monocytes 0.6 10^3/uL Normal 0-0.8 Abs Eosinophils 0.2 10^3/uL Normal 0-0.6 Abs Basophils 0.0 10^3/uL Normal 0-0.2 Abs Nucleated RBC 0.0 10^3/uL Granulocyte % 66.3 % Lymphocyte % 17.0 % Monocyte % 12.2 % Eosinophil % 3.8 % Basophil % 0.7 % Nucleated Red Blood Cells % 0.0 Laboratory test 05/12/2019 [facility] Erythrocyte Sed 1 mm/Hr Normal 0-19 [address] [place] [address] [phone] Comp Metabolic 03/17/2019 [facility] Sodium 136 Normal 135- [address] mmol/[place] [address] [phone] Potassium 4.3 mmol/L Normal 3.5-5.0 Chloride 103 mmol/L Normal 101-111 Co2 Carbon Dioxide 27 mmol/L Normal 22-32 Anion Gap 6 mmol/L Normal 2-11 Glucose 117 mg/dL High 70-100 Blood Urea Nitrogen 18 mg/dL Normal 6-24 Creatinine 0.91 mg/dL Normal 0.67-1.17 BUN/Creatinine Ratio 19.8 Normal 8-20 Calcium 9.5 mg/dL Normal 8.6-10.3 Total Protein 6.6 g/dL Normal 6.4-8.9 Albumin 4.2 g/dL Normal 3.2-5.2 Globulin 2.4 g/dL Normal 2-4 Albumin/Globulin Ratio 1.8 Normal 1-3 Total Bilirubin 3.10 mg/dL High 0.2-1.0 Alkaline Phosphatase 23 U/L Low 34-104 Alt 15 U/L Normal 7-52 Ast 24 U/L Normal 13-39 Egfr Non- 81.4 >60 Egfr 98.5 >60 5 Laboratory test 03/17/2019 [facility] C Reactive < 1.00 Normal <8.[address] Protein mg/[place] [address] [phone] CBC Auto Diff 03/17/2019 [facility] White Blood 4.1 Normal 3.5 -10.[address] Count 10^3/[place] [address] [phone] Red Blood Count 3.94 10^6/uL Low 4.18-5.48 Hemoglobin 13.5 g/dL Low 14.0-18.0 Hematocrit 40 % Low 42-52 Mean Corpuscular Volume 100 fL High 80-94 Mean Corpuscular Hemoglobin 34 pg High 27-31 Mean Corpuscular HGB Conc 34 g/dL Normal 31-36 Red Cell Distribution Width 20 % High 10-15 Platelet Count 148 10^3/uL Low 150-450 Mean Platelet Volume 7.6 fL Normal 7.4-10.4 Abs Neutrophils 2.9 10^3/uL Normal 1.5-7.7 Abs Lymphocytes 0.6 10^3/uL Low 1.0-4.8 Abs Monocytes 0.5 10^3/uL Normal 0-0.8 Abs Eosinophils 0.1 10^3/uL Normal 0-0.6 Abs Basophils 0.0 10^3/uL Normal 0-0.2 Abs Nucleated RBC 0.0 10^3/uL Granulocyte % 70.7 % Lymphocyte % 15.4 % Monocyte % 11.6 % Eosinophil % 1.7 % Basophil % 0.6 % Nucleated Red Blood Cells % 0.1 Laboratory test 03/17/2019 [facility] Erythrocyte Sed 2 mm/Hr Normal 0-[address] [place] [address] [phone] Laboratory test 02/17/2019 [facility] Erythrocyte Sed 0 mm/Hr Normal 0-[address] [place] [address] [phone] CBC Auto Diff 02/17/2019 [facility] White Blood 5.2 Normal 3.5 -10.[address] Count 10^3/[place] [address] [phone] Red Blood Count 4.24 10^6/uL Normal 4.18-5.48 Hemoglobin 13.7 g/dL Low 14.0-18.0 Hematocrit 41 % Low 42-52 Mean Corpuscular Volume 96 fL High 80-94 Mean Corpuscular Hemoglobin 32 pg High 27-31 Mean Corpuscular HGB Conc 34 g/dL Normal 31-36 Red Cell Distribution Width 20 % High 10-15 Platelet Count 146 10^3/uL Low 150-450 Mean Platelet Volume 8.1 fL Normal 7.4-10.4 Abs Neutrophils 3.4 10^3/uL Normal 1.5-7.7 Abs Lymphocytes 1.0 10^3/uL Normal 1.0-4.8 Abs Monocytes 0.6 10^3/uL Normal 0-0.8 Abs Eosinophils 0.2 10^3/uL Normal 0-0.6 Abs Basophils 0.0 10^3/uL Normal 0-0.2 Abs Nucleated RBC 0.0 10^3/uL Granulocyte % 64.2 % Lymphocyte % 19.9 % Monocyte % 12.0 % Eosinophil % 3.1 % Basophil % 0.8 % Nucleated Red Blood Cells % 0.1 Laboratory test 02/17/2019 [facility] C Reactive < 1.00 Normal <8.[address] Protein mg/[place] [address] [phone] Comp Metabolic 02/17/2019 [facility] Sodium 137 Normal 135- [address] mmol/[place] [address] [phone] Potassium 4.7 mmol/L Normal 3.5-5.0 Chloride 103 mmol/L Normal 101-111 Co2 Carbon Dioxide 26 mmol/L Normal 22-32 Anion Gap 8 mmol/L Normal 2-11 Calcium 9.3 mg/dL Normal 8.6-10.3 Albumin 3.8 g/dL Normal 3.2-5.2 Total Bilirubin 2.10 mg/dL High 0.2-1.0 Glucose 99 mg/dL Normal 70-100 Blood Urea Nitrogen 16 mg/dL Normal 6-24 Creatinine 0.99 mg/dL Normal 0.67-1.17 BUN/Creatinine Ratio 16.2 Normal 8-20 Total Protein 5.9 g/dL Low 6.4-8.9 Globulin 2.1 g/dL Normal 2-4 Albumin/Globulin Ratio 1.8 Normal 1-3 Alkaline Phosphatase 22 U/L Low 34-104 Alt 16 U/L Normal 7-52 Ast 22 U/L Normal 13-39 Egfr Non- 73.9 >60 Egfr 89.4 >60 6 Laboratory test 02/17/2019 [facility] PSA Screening 1.165 Normal 0-4.000 [address] ng/[place] [address] [phone] Hemoglobin A1c (Glyco HGB) 5.7 % High 4.0-5.6 8 Lipid Profile 02/17/2019 [facility] Triglycerides 103 mg/dL 9 (Trig/Chol/HDL) [address] [place] [address] [phone] Cholesterol 129 mg/dL 10 HDL Cholesterol 56.0 mg/dL 11 LDL Cholesterol 52 mg/dL 12 Comp Metabolic 12/23/2018 [facility] Sodium 137 mmol/L Normal 135-[address] [place] [address] [phone] Potassium 4.3 mmol/L Normal 3.5-5.0 Chloride 104 mmol/L Normal 101-111 Co2 Carbon Dioxide 28 mmol/L Normal 22-32 Anion Gap 5 mmol/L Normal 2-11 Glucose 98 mg/dL Normal 70-100 Blood Urea Nitrogen 20 mg/dL Normal 6-24 Creatinine 1.02 mg/dL Normal 0.67-1.17 BUN/Creatinine Ratio 19.6 Normal 8-20 Calcium 9.6 mg/dL Normal 8.6-10.3 Total Protein 6.6 g/dL Normal 6.4-8.9 Albumin 4.2 g/dL Normal 3.2-5.2 Globulin 2.4 g/dL Normal 2-4 Albumin/Globulin Ratio 1.8 Normal 1-3 Total Bilirubin 2.00 mg/dL High 0.2-1.0 Alkaline Phosphatase 29 U/L Low 34-104 Alt 13 U/L Normal 7-52 Ast 24 U/L Normal 13-39 Egfr Non- 71.4 >60 Egfr 86.4 >60 13 Laboratory test 12/23/2018 [facility] C Reactive < 1.00 Normal <8.[address] Protein mg/[place] [address] [phone] CBC Auto Diff 12/23/2018 [facility] White Blood 3.9 Normal 3.5 -10.[address] Count 10^3/[place] [address] [phone] Red Blood Count 4.05 10^6/uL Low 4.18-5.48 Hemoglobin 12.8 g/dL Low 14.0-18.0 Hematocrit 39 % Low 42-52 Mean Corpuscular Volume 97 fL High 80-94 Mean Corpuscular Hemoglobin 32 pg High 27-31 Mean Corpuscular HGB Conc 33 g/dL Normal 31-36 Red Cell Distribution Width 17 % High 10.5-15 Platelet Count 120 10^3/uL Low 150-450 Mean Platelet Volume 7.8 fL Normal 7.4-10.4 Abs Neutrophils 2.6 10^3/uL Normal 1.5-7.7 Abs Lymphocytes 0.7 10^3/uL Low 1.0-4.8 Abs Monocytes 0.5 10^3/uL Normal 0-0.8 Abs Eosinophils 0.2 10^3/uL Normal 0-0.6 Abs Basophils 0 10^3/uL Normal 0-0.2 Abs Nucleated RBC 0 10^3/uL Granulocyte % 66.1 % Lymphocyte % 17.6 % Monocyte % 11.5 % Eosinophil % 4.2 % Basophil % 0.6 % Nucleated Red Blood Cells % 0.1 Laboratory test 12/23/2018 [facility] Erythrocyte Sed 1 mm/Hr Normal 0-[address] Rate [place] [id number] [phone] 1 Comment: Send results to Dr. Pino Espinosa Comment: Send results to Dr.Matthew Espinosa 2 Because ethnic data is not always readily available, this report includes an eGFR for both -Americans and non- Americans. The National Kidney Disease Education Program (NKDEP) does not endorse the use of the MDRD equation for patients that are not between the ages of 18 and 70, are , have extremes of body size, muscle mass, or nutritional status, or are non- or non-. According to the National Kidney Foundation, irrespective of diagnosis, the stage of the disease is based on the level of kidney function: Stage Description GFR(mL/min/1.73 m(2)) 1 Kidney damage with normal or decreased GFR 90 2 Kidney damage with mild decrease in GFR 60-89 3 Moderate decrease in GFR 30-59 4 Severe decrease in GFR 15-29 5 Kidney failure <15 (or dialysis) 3 Comment: Send results to Pino Espinosa Comment: Send results to Dr. Pino Espinosa 4 Comment: Send results to Dr. Pino Espinosa Comment: Send results to Dr.Matthew Espinosa 5 Because ethnic data is not always readily available, this report includes an eGFR for both -Americans and non- Americans. The National Kidney Disease Education Program (NKDEP) does not endorse the use of the MDRD equation for patients that are not between the ages of 18 and 70, are , have extremes of body size, muscle mass, or nutritional status, or are non- or non-. According to the National Kidney Foundation, irrespective of diagnosis, the stage of the disease is based on the level of kidney function: Stage Description GFR(mL/min/1.73 m(2)) 1 Kidney damage with normal or decreased GFR 90 2 Kidney damage with mild decrease in GFR 60-89 3 Moderate decrease in GFR 30-59 4 Severe decrease in GFR 15-29 5 Kidney failure <15 (or dialysis) 6 Because ethnic data is not always readily available, this report includes an eGFR for both -Americans and non- Americans. The National Kidney Disease Education Program (NKDEP) does not endorse the use of the MDRD equation for patients that are not between the ages of 18 and 70, are , have extremes of body size, muscle mass, or nutritional status, or are non- or non-. According to the National Kidney Foundation, irrespective of diagnosis, the stage of the disease is based on the level of kidney function: Stage Description GFR(mL/min/1.73 m(2)) 1 Kidney damage with normal or decreased GFR 90 2 Kidney damage with mild decrease in GFR 60-89 3 Moderate decrease in GFR 30-59 4 Severe decrease in GFR 15-29 5 Kidney failure <15 (or dialysis) 7 Serum levels of PSA measured using the [facility] DXI Hybritech immunoassay should not be interpreted as absolute evidence of the presence or absence of disease. The PSA value should be used in conjunction with other pertinent clinical diagnostic procedures. The values obtained with different assay methods or kits cannot be used interchangeably. 8 Therapeutic target for the treatment of diabetes mellitus patients is <7% HBA1C, and in selective patients <6.0%. Please refer to [place] [employer] diabetic care guidelines for further information. 9 Desirable: <150 Borderline High: 150-199 High: 200-499 Very High: >500 10 Desirable: <200 Borderline High: 200-239 High: >239 11 Low: <40 Desirable: 40-60 High: >60 12 Desirable: <100 Near Optimal: 100-129 Borderline High: 130-159 High: 160-189 Very High: >189 13 Because ethnic data is not always readily available, this report includes an eGFR for both -Americans and non- Americans. The National Kidney Disease Education Program (NKDEP) does not endorse the use of the MDRD equation for patients that are not between the ages of 18 and 70, are , have extremes of body size, muscle mass, or nutritional status, or are non- or non-. According to the National Kidney Foundation, irrespective of diagnosis, the stage of the disease is based on the level of kidney function: Stage Description GFR(mL/min/1.73 m(2)) 1 Kidney damage with normal or decreased GFR 90 2 Kidney damage with mild decrease in GFR 60-89 3 Moderate decrease in GFR 30-59 4 Severe decrease in GFR 15-29 5 Kidney failure <15 (or dialysis) Procedures Date Code Description Status 05/09/2019 76418 Inject/Drain Joint/Bursa Major W/O US Completed Medical Devices Description No Information Available Encounters Type Date Location Provider Dx Diagnosis Office Visit 02/28/2019 Rheumatology Marino Epperson, M05.79 Rheu arthritis w 9:00a [facility] rheu factor mult Ccmob site w/o org/sys involv M79.662 Pain in left lower leg M54.5 Low back pain Z79.899 Other group home (current) drug therapy R60.0 Localized edema I87.2 Venous insufficiency (chronic) (peripheral) Assessments Date Code Description Provider 06/06/2019 M05.79 Rheumatoid arthritis with rheumatoid factor of JOHN Dhillon multiple site 06/06/2019 M54.42 Lumbago with sciatica, left side JOHN Dhillon 06/06/2019 Z79.899 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 05/09/2019 M25.462 Effusion, left knee Larisa Ramirez M.D. 05/09/2019 M17.12 Unilateral primary osteoarthritis, left knee Larisa Ramirez M.D. 02/28/2019 M05.79 Rheumatoid arthritis with rheumatoid factor of JOHN Dhillon multiple site 02/28/2019 M79.662 Pain in left lower leg Marcochico MakiJOHN victoria 02/28/2019 M54.5 Low back pain Marino MakiJOHN victoria 02/28/2019 Z79.899 Other group home (current) drug therapy Marino MakiJOHN victoria 02/28/2019 R60.0 Localized edema Marcojonathandavid Zhou, FNP 02/28/2019 I87.2 Venous insufficiency (chronic) (peripheral) JOHN Dhillon Plan of Treatment Future Appointment(s):09/08/2019 9:30 am - JOHN Dhillon at [facility]06/06/2019 - MarcojonathanTHOMAS TruongPM05.79 Rheumatoid arthritis with rheumatoid factor of multiple siteComments:Your arthritis seems to be clinically well controlled at this time.Your inflammatory markers are within normal rangeYour latest laboratory tests indicate no detectable impairment of kidney and liver functions.Please, continue with the present medication regime.Please call the office if you develop anysign or symptoms of infection or acute change in your health.Follow up:3 month Please call in 4 week if the back is still bothering youM54.42 Lumbago with sciatica, left sideNew Medication:Medrol 4 mg - take as directed until finished as medrol dose packComments:Discussed expected duration of recovery for acute exacerbations and red flags of when to return to care (weakness, waking at night, fever). We talked about the importance of spinal exercises for the spine; including flexion exercises, extension exercises and torsion exercises. We encouraged to do this on a regular basis. We also discussed role of core strength and core exercises to stabilize the spine, prevent injury and improve function. We encouraged to exercise on a regular basis. Benefit of weight loss emphasized. If no improvement over the next few weeks, will order an MRI as you might needan evaluation by a neurosurgeon. I am giving you a set of exercises o do daily in addition to yourother exercises to keep your back viqplrY58.899 Other group home (current) drug therapyComments:Please call if have sign or symptoms of infection. Please make sure to get the flu shot late May. Functional Status Description No Information Available Mental Status Description No Information Available Referrals Description No Information Available
--- OUTSIDE RECORDS SUMMARY | 2019-08-03 09:39 | XMS REPORT | Continuity of Care Document ---
:1945 External Reference #:[id number] Author Name Pino Espinosa DO Address [address] [place] [id number] Problems Active Problems Provider Date Gastroesophageal reflux disease Pino Espinosa DO Onset: 08/10/2013 Obesity Pino Espinosa DO Onset: 08/10/2013 Benign essential hypertension Pino Espinosa DO Onset: 08/10/2013 Hyperlipidemia Pino Espinosa DO Onset: 08/10/2013 Chronic polyarticular juvenile rheumatoid Jc Haro MD Onset: 2004 arthritis Coronary arteriosclerosis Jc Haro MD Onset: 11/09/2004 Rheumatoid arthritis Jc Haro MD Onset: 11/09/2004 Pure hypercholesterolemia Pino Espinosa DO Onset: 09/01/2014 Atrial fibrillation Pino Espinosa DO Onset: 09/01/2014 Social History Type Date Description Comments Sex Unknown Tobacco Use Start: Unknown End: Unknown Former Cigarette Smoker Tobacco Use Start: Unknown End: Unknown Patient is a former smoker Smoking Status Reviewed: 01/27/19 Patient is a former smoker Allergies, Adverse Reactions, Alerts Active Allergies Reaction Severity Comments Date Plaquenil 09/01/2014 Tagamet 09/01/2014 Sulfa Drugs Shoerness of breath 09/09/2017 Medications Active Medications SIG Qnty Indications Ordering Date Provider Sildenafil Citrate 3 by mouth 1 hour 50tabs N52.9 Pino Espinosa, 2018 20mg before relations DO Tablets Nitrostat 1 sl every 5 mins 25tabs Pino Espinosa, 08/10/2013 0.4mg Tablets x 3 as needed DO Sub chest pain Pravastatin Sodium take 1 tablet 90tabs K21.9 Pino Espinosa, 06/17/2011 40mg every day except DO Tablets 2 tablets on sundays Omeprazole take 1 capsule 90caps Pino Espinosa, 2009 20mg every day DO Capsules DR Tramadol HCL 1 -2 PO Q6H prn 90tabs Gerson Galvan 07/27/[address] Tablets Folic Acid 1 PO qd 100tabs Jc Haro, 11/08/2004 1mg Tablets MD Xarelto 1 by mouth every Unknown 20mg Tablets day Methotrexate 6 pills by mouth Unknown 2.5mg once a week Tablets Aspirin 1 by mouth every Unknown 81mg Tablets DR day Magnesium Oxide 1 by mouth every Unknown 400mg day Capsules Allopurinol 1 by mouth every Unknown 100mg day Tablets Calcium 600 + D 1 by mouth twice Unknown a day Tablets Furosemide 1-2 by mouth Unknown 20mg Tablets daily prn swelling Actemra 1 sq q4wks Unknown Solution Vitamin B-12 1 by mouth every Unknown Natural day 500mcg Tablets History Medications Tizanidine HCL Take 1 Tablet By 90tabs M54.32 Pino Espinosa, 02/09/2019 - 2mg Mouth Every Night DO 07/28/2019 Tablets AT Bedtime Prednisone 6 tablets by 21tabs M54.32 Pino Espinosa, 02/09/2019 - 10mg mouth today then DO 03/02/2019 Tablets decrease by 1 pill daily until gone Immunizations CPT Code Status Date Vaccine Lot # [id number] Given 07/05/2019 Fluzone Highdose Age 65 And Over Preservative & Antibiotic Free 47216 Given 05/12/2018 Fluzone Highdose Age 65 And Over Preservative & Antibiotic Free 83138 Given 12/24/2015 Prevnar 13 Pneumococal Conjugate Vaccine 84530 Given 05/25/2015 Fluzone Highdose Age 65 And Over Preservative & Antibiotic Free 04358 Given 05/25/2014 Fluzone Highdose Age 65 And Over Preservative & Antibiotic Free 90563 Given 06/15/2013 Afluria Or Fluvirin Flu Vac Intramuscular 69816 Given 10/13/2011 Tdap (Adacel) Ages 7 And Above Only 13407 Given 05/15/2011 Afluria Or Fluvirin Flu Vac Intramuscular 35249 Given 06/28/2010 Afluria Or Fluvirin Flu Vac Intramuscular 44303 Given 04/19/2009 Afluria Or Fluvirin Flu Vac Intramuscular 15198 Given 06/08/2008 Afluria Or Fluvirin Flu Vac Intramuscular 97918 Given 07/27/2007 Afluria Or Fluvirin Flu Vac Intramuscular 79112 Given 07/27/2006 Pneumococcal 23 Immunization Adult Or Immunosuppressed Patient 86977 Given 06/22/2006 Afluria Or Fluvirin Flu Vac Intramuscular Vital Signs Date Vital Result Comment 07/28/2019 10:24am Weight 201.00 lb Heart Rate 78 /min BP Systolic 158 mmHg BP Diastolic 82 mmHg BP Systolic Recheck 136 mmHg BP Diastolic Recheck 78 mmHg Respiratory Rate 18 /min Height 69.25 inches 5'9.25" BMI (Body Mass Index) 29.5 kg/m2 03/02/2019 3:27pm Weight 210.00 lb Heart Rate 76 /min BP Systolic 128 mmHg BP Diastolic 78 mmHg Respiratory Rate 18 /min Height 69.25 inches 5'9.25" BMI (Body Mass Index) 30.8 kg/m2 Results Description No Information Available Procedures Date Code Description Status 05/21/2017 94426317 Colonoscopy Completed Medical Devices Description No Information Available Encounters Type Date Location Provider Dx Diagnosis Office Visit 03/02/2019 [facility] Pino Espinosa DO R23.3 Spontaneous ecchymoses 3:00p R60.0 Localized edema M79.605 Pain in LEFT leg I48.91 Unspecified atrial fibrillation E66.9 Obesity, unspecified Z68.30 Body mass index (BMI) 30.0-30.9, adult Office Visit 02/09/2019 11:30a [facility] Tricia Padilla PA M54.32 Sciatica, LEFT side Z68.30 Body mass index (BMI) 30.0-30.9, adult Office Visit 01/27/2019 3:30p [facility] Pino Espinosa DO Z00.00 Encntr for general adult medical exam w/o abnormal findings I25.10 Athscl heart disease of wiyot coronary artery w/o ang pctrs K21.9 Gastro-esophageal reflux disease without esophagitis E78.5 Hyperlipidemia, unspecified M17.0 Bilateral primary osteoarthritis of knee Z95.0 Presence of cardiac pacemaker I10 Essential (primary) hypertension M10.9 Gout, unspecified M54.5 Low back pain E11.9 Type 2 diabetes mellitus without complications M06.9 Rheumatoid arthritis, unspecified Z13.31 Encounter for screening for depression I48.91 Unspecified atrial fibrillation I49.5 Sick sinus syndrome E66.9 Obesity, unspecified Z68.30 Body mass index (BMI) 30.0-30.9, adult Assessments Date Code Description Provider 07/28/2019 I25.10 Atherosclerotic heart disease of wiyot Pino Espinosa, coronary artery with 07/28/2019 K21.9 Gastro-esophageal reflux disease without Pino Espinosa DO esophagitis 07/28/2019 E78.5 Hyperlipidemia, unspecified Pino Espinosa, DO 07/28/2019 M17.0 Bilateral primary osteoarthritis of knee Pino Espinosa, DO 07/28/2019 Z95.0 Presence of cardiac pacemaker Pino Espinosa, DO 07/28/2019 I10 Essential (primary) hypertension Pino Espinosa, DO 07/28/2019 M10.9 Gout, unspecified Pino Espinosa, DO 07/28/2019 M54.5 Low back pain Pino Espinosa, DO 07/28/2019 E11.9 Type 2 diabetes mellitus without complications Pino Espinosa, DO 07/28/2019 M06.9 Rheumatoid arthritis, unspecified Pino Espinosa, DO 07/28/2019 I48.91 Unspecified atrial fibrillation Pino Espinosa, DO 07/28/2019 I49.5 Sick sinus syndrome Pino Espinosa, DO 07/28/2019 E66.3 Overweight Pino Espinosa, DO 07/28/2019 Z68.29 Body mass index (BMI) 29.0-29.9, adult Pino Espinosa, 03/02/2019 R23.3 Spontaneous ecchymoses Pino Espinosa, DO 03/02/2019 R60.0 Localized edema Pino Espinosa, DO 03/02/2019 M79.605 Pain in LEFT leg Pino Espinosa, DO 03/02/2019 I48.91 Unspecified atrial fibrillation Pino Espinosa, DO 03/02/2019 E66.9 Obesity, unspecified Pino Espinosa, DO 03/02/2019 Z68.30 Body mass index (BMI) 30.0-30.9, adult Pino Espinosa DO 02/09/2019 M54.32 Sciatica Tricia Padilla PA 02/09/2019 Z68.30 Body mass index (BMI) 30.0-30.9, adult Tricia Padilla PA 01/27/2019 Z00.00 Encntr for general adult medical exam w/o Pino Espinosa DO abnormal findings 01/27/2019 I25.10 Atherosclerotic heart disease of wiyot Pino Espinosa DO coronary artery with 01/27/2019 K21.9 Gastro-esophageal reflux disease without Pino Espinosa DO esophagitis 01/27/2019 E78.5 Hyperlipidemia, unspecified Pino Espinosa DO 01/27/2019 M17.0 Bilateral primary osteoarthritis of knee Pino Espinosa DO 01/27/2019 Z95.0 Presence of cardiac pacemaker Pino Espinosa DO 01/27/2019 I10 Essential (primary) hypertension Pino Espinosa DO 01/27/2019 M10.9 Gout, unspecified Pino Espinosa DO 01/27/2019 M54.5 Low back pain Pino Espinosa DO 01/27/2019 E11.9 Type 2 diabetes mellitus without complications Pino Espinosa DO 01/27/2019 M06.9 Rheumatoid arthritis, unspecified Pino Espinosa DO 01/27/2019 Z13.31 Encounter for screening for depression Pino Espinosa DO 01/27/2019 I48.91 Unspecified atrial fibrillation Pino Espinosa DO 01/27/2019 I49.5 Sick sinus syndrome Pino Espinosa DO 01/27/2019 E66.9 Obesity, unspecified Pino Espinosa DO 01/27/2019 Z68.30 Body mass index (BMI) 30.0-30.9, adult Pino Espinosa DO Plan of Treatment Future Appointment(s):01/27/2020 11:15 am - Pino Espinosa DO at [facility]07/28/2019 - Pino Espinosa, DOI25.10 Atherosclerotic heart disease of wiyot coronary artery withFollow up:Follow up in 6 months for a Medicare wellness examK21.9 Gastro-esophageal reflux disease without jdbuasnsnfjG71.5 Hyperlipidemia, unspecifiedComments:Labs were reviewed in detail with the patient. LDL is well controlled.1. Continue taking Pravastatin.2. The patient may benefit from decreasing the total amount of fat. Can choose lean meats, fat freeor 1% fat milk, and low-fat dairy products such as yogurt and cheese.3. Would benefit from replacingunhealthy fats with healthy fats.4. Would benefit by eating foods which are high in fiber.5. We willrecheck it in the future.6. We will continue to monitor.M17.0 Bilateral primary osteoarthritis of kneeZ95.0 Presence of cardiac [id number] Essential (primary) hypertensionComments:Today, the patient 's BP was elevated at 158/82; on recheck it was at 136/781. The patient will benefit from maintaining a low sodium diet, cut down caffeine intake2. Encourage the patient to monitor BP periodically at home and maintain a log of the same to bring along during the next visit for comparison.3. Advise the patient to stay hydrated.4. Advise the patient to maintain a normal cardiac exercise regimen. 5. We will continue to monitor.M10.9 Gout, unspecifiedComments :1. Continue taking Allopurinol 100 mg.2. Will benefit from drinking more fluids.3. Will benefit fromavoiding alcohol.4. Will benefit from elevating the foot with pillows so it is higher than the chestand may help with swelling.M54.5 Low back painComments:I recommended the patient to continue chiropractic treatment and treat this conservatively. If the symptoms continue to persist or worsen will call or come back as he may need an MRI, but did not wantthis at this time. Will discuss this with his director client services next month and call if this worsens sooner. Will continue to monitor.E11.9 Type 2 diabetes mellitus without complicationsComments:Well controlled when last checked outside office at 4.9. Will continue to monitor.M06.9 Rheumatoid arthritis, vjiivemxtpmO79.91 Unspecified atrial zzrbdndazhpoU06.5 Sick sinus muldgcofP60.3 OverweightComments:The patient was advised on healthy diet and a regular exercise regimen. We discussed the risks associated with obesity and high levels of body fat. We will continue to monitor the patient's weight and the patient is advised to reduce the number of calories in diet.Z68.29 Body mass index (BMI) 29.0-29.9, adultComments:BMI is at 29.5. The patient should try to lose weight with low-calorie diet and exercises. We willcontinue to monitor weight and BMI periodically. Functional Status Description No Information Available Mental Status Description No Information Available Referrals Description No Information Available
[2019-08-03 09:53] VITALS: BP 114/56
--- NOTE | 2019-08-03 10:39 | UC ---
Hip/Pelvis Pain - HPI Summary HPI Summary: left hip pain x 3 days pain is 2 out of 10 , worse with walking/ weight bearing better with rest and heat s/p fall on his left hip 3 days ago , + swelling / bruising of the left hip - History Of Current Complaint Chief Complaint: UCLowerExtremity Stated Complaint: S/P FALL(08/01/19)-LEFT HIP PAIN Time Seen by Provider: 08/03/19 09:42 Hx Obtained From: Patient Onset/Duration: Sudden Onset, Lasting Days - 3, Still Present Severity Initially: Moderate Severity Currently: Moderate Pain Intensity: 2 Pain Scale Used: 0-10 Numeric Location: Discrete At: - left hip Character Of Pain: Aching Aggravating Factor(s): Movement, Weight Bearing Alleviating Factor(s): Rest, Heat Associated Signs And Symptoms: Positive: Swelling, Bruising, Weakness. Negative : Redness, Fever, Dizziness, Syncope, Abdominal Pain, Knee Pain - Allergies/Home Medications Allergies/Adverse Reactions: Allergies Allergy/AdvReac Type Severity Reaction Status Date / Time cimetidine Allergy Unknown Verified 08/03/19 09:46 Reaction Details hydroxychloroquine Allergy Unknown Verified 08/03/19 09:46 Reaction Details leflunomide Allergy Unknown Verified 08/03/19 09:46 Reaction Details Sulfa (Sulfonamide Allergy Unknown Verified 08/03/19 09:46 Antibiotics) Reaction Details Home Medications: Home Medications Allopurinol TAB* [Zyloprim 100 MG TAB*] 100 mg PO DAILY 08/03/19 [History Confirmed 08/03/19] Calcium Carbonate/Vitamin D3 [Calcium 600-Vit D3 800 Caplet] 1 each PO DAILY 07/12 [History Confirmed 08/03/19] Clopidogrel TAB* [Plavix TAB*] 75 mg PO DAILY 08/03/19 [History Confirmed ] Cyanocobalamin TAB* [Vitamin B12 TAB*] 500 mcg PO DAILY 08/03/19 [History Confirmed 08/03/19] Folic Acid TAB* [Folvite TAB*] 1 mg PO DAILY 08/03/19 [History Confirmed ] Furosemide TAB* [Lasix TAB*] 20 mg PO DAILY PRN 08/03/19 [History Confirmed 07/12] Magnesium Oxide TAB* [MagOx 400 TAB*] 400 mg PO DAILY 08/03/19 [History Confirmed 08/03/19] Methotrexate TAB* mg PO TU 08/03/19 [History] Omeprazole CAP (NF) [Prilosec CAP* 20 MG] 20 mg PO DAILY 08/03/19 [History Confirmed 08/03/19] Pravastatin (NF) [Pravachol (NF)] 40 mg PO MOTUWETHFRSA 08/03/19 [History Confirmed 08/03/19] Pravastatin Sodium [Pravachol] 80 mg PO TURNER 08/03/19 [History Confirmed 08/03/19] Rivaroxaban TAB(*) [Xarelto 20 mg] 20 mg PO DAILY 08/03/19 [History Confirmed ] Tocilizumab* [Actemra*] mg IV Q28D 08/03/19 [History] Tramadol HCl/Acetaminophen [Ultracet] 1 tab PO Q12H PRN MDD 2 08/03/19 [History Confirmed 08/03/19] PMH/Surg Hx/FS Hx/Imm Hx - Additional Past Medical History Additional PMH: OA Cardiovascular History: Cardiac Disease, Pacemaker/ICD - Surgical History Surgical History: Yes Surgery Procedure, Year, and Place: hemicholectomy- colostomy surgery with reversal. nasal. vasectomy. R [facility]KA - Family History Known Family History: Positive: Cardiac Disease, Hypertension, Other - father had RA, at age 70. Mother had mental illness and [place] - Social History Alcohol Use: Rare Substance Use Type: None Smoking Status (MU): Former Smoker Amount Used/How Often: 3 PPD Length of Time of Smoking/Using Tobacco: 30 YEARS Have You Smoked in the Last Year: No When Did the Patient Quit Smoking/Using Tobacco: Household Exposure Type: Cigarettes - Immunization History Most Recent Influenza Vaccination: 2012 Most Recent Tetanus Shot: 2013 Most Recent Pneumonia Vaccination: 2006 Review of Systems All Other Systems Reviewed And Are Negative: Yes Is Patient Immunocompromised?: No Physical Exam Triage Information Reviewed: Yes Appearance: Well-Appearing, No Pain Distress, Well-Nourished Vital Signs: Initial Vital Signs Temp 98.2 F 08/03/19 09:45 Pulse 83 08/03/19 09:45 Resp 20 08/03/19 09:45 BP 114/56 08/03/19 09:45 Pulse Ox 100 08/03/19 09:45 Vital Signs Reviewed: Yes Eyes: Positive: Conjunctiva Clear ENT: Positive: Normal ENT inspection, Hearing grossly normal, Pharynx normal Neck exam: Normal Neck: Positive: Supple Respiratory: Positive: Chest non-tender, Lungs clear, Normal breath sounds, No respiratory distress Abdominal Exam: Normal Musculoskeletal: Positive: Other: - left hip: + swelling, ecchymosis, tenderness lateral left hip , pain with flexion / rotation , limited strength Diagnostics - Radiology No standard instances Radiology Interpretation Completed By: Radiologist Summary of Radiographic Findings: xray report left hip: IMPRESSION: 1. OSTEOARTHRITIS. 2. PERIPHERAL ARTERIAL DISEASE 3. NO RADIOGRAPHIC EVIDENCE FOR HIP FRACTURE. X-RAYS MAY BE NEGATIVE WITH NONDISPLACED HIP FRACTURE, IF THERE IS PERSISTENT CLINICAL CONCERN, RECOMMEND CONSIDERATION OF MRI. IN THE SETTING OF CONTRAINDICATION TO MRI OR LIMITATION IN EMERGENT ACCESS TO MRI, CT WOULD BE SUGGESTED. Hip Injury Course/Dx - Differential Dx/Diagnosis Provider Diagnosis: Contusion of left hip Discharge ED - Sign-Out/Discharge Documenting (check all that apply): Patient Departure All imaging exams completed and their final reports reviewed: Yes - Discharge Plan Condition: Stable Disposition: HOME Patient Education Materials: Hip Contusion (ED) Referrals: Pino Espinosa DO [Primary Care Provider] - 7 Days - Billing Disposition and Condition Condition: STABLE Disposition: Home
== END 2019-08-03 10:29 | disposition home or self-care (01) ==
LOC: UCCORT 09:27
DX: S70.02XA Contusion of left hip, initial encounter (principal); I73.9 Peripheral vascular disease, unspecified; M16.12 Unilateral primary osteoarthritis, left hip; Z95.0 Presence of cardiac pacemaker; Z88.8 Allergy status to other drugs, medicaments and biological substances; Z88.2 Allergy status to sulfonamides; Z87.891 Personal history of nicotine dependence; W19.XXXA Unspecified fall, initial encounter; Y92.9 Unspecified place or not applicable
CPT/HCPCS: 99212; G0463

== ENCOUNTER 2019-10-18 14:57 | Emergency (ER) | payer MEDICARE ==
--- OUTSIDE RECORDS SUMMARY | 2019-10-18 15:06 | XMS REPORT | Continuity of Care Document ---
:1945 External Reference #:[id number] Author Name Ezio Jasso M.D. (transmitted by agent of provider Lois Carmona) Address [address] [place] [address] [place] [address] Care Team Providers Name Role Phone Caesar Biggs DO - Family Care Team Information Project Estimator [phone] Medicine [facility] - Physical Care Team Information Project Estimator Therapy Emeterio Herron MD - Care Team Information Project Estimator [phone] Cardiovascular Disease Pino Espinosa DO - Family Medicine Care Team Information Project Estimator Problems Active Problems Provider Date Rheumatoid arthritis Jose Marks M.D. Onset: 10/24/2010 Note: High grade rheumatoid-MTX plus biologic. Remicade clearly more effective than sq. Medications Halfway (Current) Use Encounter Jose Marks M.D. Onset: [...] quit at age 39 Smoking Status Reviewed: 08/30/19 Patient is a former smoker quit at age 39 Allergies, Adverse Reactions, Alerts Active Allergies Reaction Severity Comments Date Hydroxychloroquine muscle spasms Severe 10/24/2010 Leflunomide Urticaria 10/24/2010 Medications Active Medications SIG Qnty Indications Ordering Provider Date Medrol take as directed 21units M54.42 Marino Epperson, 06/06/2019 4mg TBPK until finished as DIRECTOR VIDEO medrol dose pack Actemra IV infusion 8 M06.09 Gerson Galvan, 10/12/2018 400mg/20ML mg/kg every 4 M.D. Solution weeks Z79.899 M05.79 Shingrix 2 doses 6 month 2units Z23 Marino Epperson, DIRECTOR VIDEO 08/09/2018 50mcg/0.5ML apart Suspension Rec Allopurinol 1 by mouth every 90tabs M10.9 THOMAS DhillonP 03/25/2018 100mg Tablets day Folic Acid 1 by mouth every 90tabs Z79.899 Gerson Galvan, 03/11/2018 1mg Tablets day M.D. Methotrexate take 6 tablets 72tabs Z79.899 THOMAS DhillonP 03/11/2018 2.5mg Tablets every week M06.09 M05.79 Calcium 600-D 1 by mouth daily 90tabs Z79.52 Marino Epperson, 05/29/2016 [id number] DIRECTOR VIDEO Tablets Tramadol 1 tab by mouth 60tabs M25.562 Marino Epperson, 10/24/2010 Hydrochloride/Acetaminoph two times daily DIRECTOR VIDEO en as needed for 37.5-325mg Tablets pain. [...] Qnty Indications Ordering Provider Date Depomedrol 40MG Ezio Jasso M.D. 08/30/2019 Injection Depomedrol 40MG Larisa Ramirez M.D. 05/09/2019 Injection Depomedrol 40MG Larias Ramirez M.D. 07/26/2018 Injection Depomedrol 40MG Larisa Ramirez M.D. 02/19/2018 Injection PPD Injection Chapito Massey M.D. 08/12/2017 Depomedrol 80MG Ezio Jasso M.D. 03/31/2013 Injection Immunizations CPT Code Status Date Vaccine Reaction Lot # 39770 Given 05/10/2018 Influenza Virus Vaccine, [id number] Quadrivalent, Split, Preservative Free 23467 Given 09/07/2017 Pneumococcal Conjugate Vaccine no reaction noted [id number] Valent For Intramuscular Use 99099 Given 06/04/2017 Influenza Virus Vaccine, [id number] Quadrivalent, Split, Preservative Free 50274 Given 05/29/2016 Influ Virus Vaccine, [id number] Quadrivalent, Split Virus, [place] [address] Given 01/01/2016 Pneumococcal Conjugate Vaccine [id number] 13 Valent For Intramuscular Use Vital Signs Date Vital Result Comment 08/30/2019 10:18am Height 70 inches 5'10" Weight 227.00 lb Heart Rate 90 /min Body Temperature 96.1 F O2 % BldC Oximetry 99 % BMI (Body Mass Index) 32.6 kg/m2 08/22/2019 9:37am Height 70 inches 5'10" Weight 227.00 lb Heart Rate 86 /min BP Systolic 142 mmHg BP Diastolic 84 mmHg Respiratory Rate 14 /min Body Temperature 97.4 F Pain Level 3 BMI (Body Mass Index) 32.6 kg/m2 Results Test Acquired Date Facility Test Result H/L Range Note CBC Auto 08/22/2019 [facility] White Blood 4.9 10^3/uL Normal 3.5-10.[address] [place] [address] [phone] Red Blood Count 2.69 10^6/uL Low 4.18-5.48 Hemoglobin 9.1 g/dL Low 14.0-18.0 Hematocrit 27 % Low 42-52 Mean Corpuscular Volume 101 fL High 80-94 Mean Corpuscular Hemoglobin 34 pg High 27-31 Mean Corpuscular HGB Conc 34 g/dL Normal 31-36 Red Cell Distribution Width 17 % High 10-15 Platelet Count 144 10^3/uL Low 150-450 Mean Platelet Volume 7.2 fL Low 7.4-10.4 Abs Neutrophils 3.5 10^3/uL Normal 1.5-7.7 Abs Lymphocytes 0.6 10^3/uL Low 1.0-4.8 Abs Monocytes 0.7 10^3/uL Normal 0-0.8 Abs Eosinophils 0.1 10^3/uL Normal 0-0.6 Abs Basophils 0.0 10^3/uL Normal 0-0.2 Abs Nucleated RBC 0.0 10^3/uL Granulocyte % 70.6 % Lymphocyte % 11.4 % Monocyte % 14.7 % Eosinophil % 2.6 % Basophil % 0.7 % Nucleated Red Blood Cells % 0.0 Inr/Protime 08/22/2019 [facility] Inr 1.45 High 0.82-1.09 1 [address] [place] [address] [phone] Comp Metabolic 07/07/2019 [facility] Sodium 135 mmol/L Normal 135-145 Panel [address] [place] [address] [phone] Potassium 4.3 mmol/L Normal 3.5-5.0 Chloride 102 mmol/L Normal 101-111 Co2 Carbon Dioxide 29 mmol/L Normal 22-32 Anion Gap 4 mmol/L Normal 2-11 Glucose 89 mg/dL Normal 70-100 Blood Urea Nitrogen 20 mg/dL Normal 6-24 Creatinine 0.98 mg/dL Normal 0.67-1.17 BUN/Creatinine Ratio 20.4 High 8-20 Calcium 9.6 mg/dL Normal 8.6-10.3 Total Protein 6.4 g/dL Normal 6.4-8.9 Albumin 4.0 g/dL Normal 3.2-5.2 Globulin 2.4 g/dL Normal 2-4 Albumin/Globulin Ratio 1.7 Normal 1-3 Total Bilirubin 1.80 mg/dL High 0.2-1.0 Alkaline Phosphatase 25 U/L Low 34-104 Alt 13 U/L Normal 7-52 Ast 21 U/L Normal 13-39 Egfr Non- 74.8 >60 Egfr 90.5 >60 2 Laboratory test 07/07/2019 [facility] C Reactive < 1.00 Normal <8.[address] Protein mg/L [place] [id number] [phone] CBC Auto Diff 07/07/2019 [facility] White Blood 4.2 Normal 3.5 -10.[address] Count 10^3/[place] [address] [phone] Red Blood Count 3.99 10^6/uL Low 4.18-5.48 Hemoglobin 13.7 g/dL Low 14.0-18.0 Hematocrit 40 % Low 42-52 Mean Corpuscular Volume 100 fL High 80-94 Mean Corpuscular Hemoglobin 34 pg High 27-31 Mean Corpuscular HGB Conc 34 g/dL Normal 31-36 Red Cell Distribution Width 17 % High 10-15 Platelet Count 144 10^3/uL Low 150-450 Mean Platelet Volume 7.3 fL Low 7.4-10.4 Abs Neutrophils 2.6 10^3/uL Normal 1.5-7.7 Abs Lymphocytes 0.8 10^3/uL Low 1.0-4.8 Abs Monocytes 0.6 10^3/uL Normal 0-0.8 Abs Eosinophils 0.2 10^3/uL Normal 0-0.6 Abs Basophils 0.0 10^3/uL Normal 0-0.2 Abs Nucleated RBC 0.0 10^3/uL Granulocyte % 61.7 % Lymphocyte % 17.9 % Monocyte % 15.3 % Eosinophil % 4.2 % Basophil % 0.9 % Nucleated Red Blood Cells % 0.0 Laboratory test 07/07/2019 [facility] Erythrocyte Sed 4 mm/Hr Normal 0-[address] [place] [address] [phone] Comp Metabolic 05/12/2019 [facility] Sodium 136 Normal 135- 145 [address] mmol/[place] [address] [phone] Potassium 4.5 mmol/L Normal 3.5-5.0 Chloride 102 [...] Egfr Non- 72.2 >60 Egfr 87.4 >60 4 Laboratory test 05/12/2019 [facility] C Reactive < 1.00 Normal <8.01 [address] Protein mg/[place] [address] [phone] CBC Auto Diff 05/12/2019 [facility] White Blood 5.1 Normal 3.5 -10.[address] Count 10^3/[place] [address] [phone] Red Blood Count 4.17 10^6/uL Low 4.18-5.48 [...] Blood Cells % 0.0 Laboratory test 05/12/2019 [facility] Erythrocyte Sed 1 mm/Hr Normal 0-19 [address] [place] [address] [phone] Comp Metabolic 03/17/2019 [facility] Sodium 136 Normal 135- [address] mmol/[place] [address] [phone] Potassium 4.3 mmol/L Normal 3.5-5.0 Chloride 103 [...] Egfr Non- 81.4 >60 Egfr 98.5 >60 7 Laboratory test 03/17/2019 [facility] C Reactive < 1.00 Normal <8.[address] Protein mg/[place] [address] [phone] CBC Auto Diff 03/17/2019 [facility] White Blood 4.1 Normal 3.5 -10.[address] Count 10^3/[place] [address] [phone] Red Blood Count 3.94 10^6/uL Low 4.18-5.48 [...] Blood Cells % 0.1 Laboratory test 03/17/2019 [facility] Erythrocyte Sed 2 mm/Hr Normal 0-[address] [place] [address] [phone] 1 Standard intensity warfarin therapeutic range: 2.0-3.0 High intensity warfarin therapeutic range: 2.5-3.5 2 Because ethnic data is not always [...] (or dialysis) 3 Comment: Send results to Dr. Pino Espinosa Comment: Send results to Dr.Matthew Espinosa 4 Because ethnic data is not always readily [...] 15-29 5 Kidney failure <15 (or dialysis) 5 Comment: Send results to Pino Espinosa Comment: Send results to Dr. Pino Espinosa 6 Comment: Send results to Dr. Pino Espinosa Comment: Send results to Dr.Matthew Espinosa 7 Because ethnic data is not always readily [...] (or dialysis) Procedures Date Code Description Status 08/30/2019 Inject/Drain Joint/Bursa Major W/O US Completed 08/22/2019 Inject/Drain Joint/Bursa Major W/O US Completed 05/09/2019 Inject/Drain Joint/Bursa Major W/O US Completed Medical Devices Description No Information Available Encounters Type Date Location Provider Dx Diagnosis Office Visit 08/22/2019 [facility] Ezio Jasso M.D. M17.12 Unilateral primary 9:30a at [place] osteoarthritis, left knee M25.462 Effusion, left knee Office Visit 06/06/2019 10:30a Rheumatology Marino Epperson, M05.79 [facility] rheu factor [facility] site w/o org/sys involv M54.42 Lumbago with sciatica, left side Z79.899 Other terminal block assembler (current) drug therapy Office Visit 02/28/2019 9:00a Rheumatology Marino Epperson M05.79 [facility] rheu factor [facility] site w/o org/sys involv M79.662 Pain in left lower leg M54.5 Low back pain Z79.899 Other [facility] (current) drug therapy R60.0 Localized edema I87.2 Venous insufficiency (chronic) (peripheral) Assessments Date Code Description Provider 08/30/2019 M17.12 Unilateral primary osteoarthritis, left knee Ezio Jasso M.D. 08/22/2019 M17.12 Unilateral primary osteoarthritis, left knee Ezio Jasso M.D. 08/22/2019 M25.462 Effusion, left knee Ezio Jasso M.D. 06/06/2019 M05.79 Rheumatoid arthritis with rheumatoid factor of Marcoofia Zhou DIRECTOR VIDEO multiple site 06/06/2019 M54.42 Lumbago with sciatica, left side Marcoofia Zhou, DIRECTOR VIDEO 06/06/2019 Z79.899 Other terminal block assembler (current) drug therapy Marcoofia Zhou, DIRECTOR VIDEO 05/09/2019 M25.562 Pain in left knee Larisa Ramirez M.D. 05/09/2019 M25.462 Effusion, left knee Larisa Ramirez M.D. 05/09/2019 M17.12 Unilateral primary osteoarthritis, left knee Larisa Ramirez M.D. 02/28/2019 M05.79 Rheumatoid arthritis with rheumatoid factor of Zsofia Zhou, DIRECTOR VIDEO multiple site 02/28/2019 M79.662 Pain in left lower leg Marcoofia THOMAS EppersonP 02/28/2019 M54.5 Low back pain Marino Epperson, [facility] 02/28/2019 Z79.899 Other terminal block assembler (current) drug therapy JOHN Dhillon 02/28/2019 R60.0 Localized edema Marino Epperson, [facility] 02/28/2019 I87.2 Venous insufficiency (chronic) (peripheral) JOHN Dhillon Plan of Treatment Future Appointment(s):10/19/2019 10:30 am - Ezio Jasso M.D. at [facility] at [id number]/08/2019 9:30 am - JOHN Dhillon at [facility]08/30/2019 - Ezio Jasso M.D.M17.12 Unilateral primary osteoarthritis, left kneeFollow up:Follow up: 6-8 weeks Use the walker Rest a lot at home Please see Dr. Espinosa Functional Status Description No Information Available Mental Status Description No Information Available Referrals Description No Information Available
--- OUTSIDE RECORDS SUMMARY | 2019-10-18 15:06 | XMS REPORT | Continuity of Care Document ---
:1945 External Reference #:[id number] Author Name Ezio Jasso M.D. (transmitted by agent of provider Lois Carmona) Address [address] [place] [address] [place] [address] Care Team Providers Name Role Phone Caesar Biggs DO - Family Care Team Information Surety Bond Agent [phone] Medicine Johann [facility] - Physical Care Team Information Surety Bond Agent Therapy Emeterio Herron MD - Care Team Information Surety Bond Agent [phone] Cardiovascular Disease Pino Espinosa DO - Family Medicine Care Team Information Surety Bond Agent [phone] Problems Active Problems Provider Date Rheumatoid arthritis Jose Marks M.D. Onset: 10/24/2010 Note: High grade rheumatoid-MTX plus biologic. Remicade clearly more effective than sq. Medications Assisted (Current) Use Encounter Jose Marks M.D. Onset: [...] quit at age 39 Smoking Status Reviewed: 08/22/19 Patient is a former smoker quit at age 39 Allergies, Adverse Reactions, Alerts Active Allergies Reaction Severity Comments Date Hydroxychloroquine muscle spasms Severe 10/24/2010 Leflunomide Urticaria 10/24/2010 Medications Active Medications SIG Qnty Indications Ordering Provider Date Medrol take as directed 21units M54.42 Marino Epperson, 06/06/2019 4mg TBPK until finished as ARM[employer]LE [employer] HANDSTITCHING MACHINE medrol dose pack Actemra IV infusion 8 M06.09 Gerson Galvan, 10/12/2018 400mg/20ML mg/kg every 4 M.D. Solution weeks Z79.899 M05.79 Shingrix 2 doses 6 month 2units Z23 Marino Epperson, [employer]ST[employer] 08/09/2018 50mcg/0.5ML apart Suspension Rec Allopurinol 1 by mouth every 90tabs M10.9 THOMAS DhillonP 03/25/2018 100mg Tablets day Folic Acid 1 by mouth every 90tabs Z79.899 Gerson Galvan, 03/11/2018 1mg Tablets day M.D. Methotrexate take 6 tablets 72tabs Z79.899 THOMAS DhillonP 03/11/2018 2.5mg Tablets every week M06.09 M05.79 Calcium 600-D 1 by mouth daily 90tabs Z79.52 Marino Epperson, 05/29/2016 [id number] [employer] HANDSTITCHING [employer]ACHINE Tablets Tramadol 1 tab by mouth 60tabs M25.562 Marino Epperson, 10/24/2010 Hydrochloride/Acetaminoph two times daily [employer]STITCHING MACHINE en as needed for 37.5-325mg Tablets pain. [...] Code Status Date Vaccine Reaction Lot # [id number] Given 05/10/2018 Influenza Virus Vaccine, [id number] Quadrivalent, Split, Preservative Free 99510 Given 09/07/2017 Pneumococcal Conjugate Vaccine no reaction noted [id number] Valent For Intramuscular Use 47465 Given 06/04/2017 Influenza Virus Vaccine, [id number] Quadrivalent, Split, Preservative Free 26418 Given 05/29/2016 Influ Virus Vaccine, [id number] Quadrivalent, Split Virus, [place] [address] Given 01/01/2016 Pneumococcal Conjugate Vaccine [id number] 13 Valent For Intramuscular Use Vital Signs Date Vital Result Comment 08/22/2019 9:37am Height 70 inches 5'10" Weight 227.00 lb Heart Rate 86 /min BP Systolic 142 mmHg BP Diastolic 84 mmHg Respiratory Rate 14 /min Body Temperature 97.4 F Pain Level 3 BMI (Body Mass Index) 32.6 kg/m2 06/06/2019 10:35am Height 73 inches 6'1" Weight 199.50 lb Heart Rate 87 /min BP Systolic 141 mmHg BP Diastolic 84 mmHg Body Temperature 96.8 F O2 % BldC Oximetry 97 % BMI (Body Mass Index) 26.3 kg/m2 Results Test Acquired Date Facility Test Result H/L Range Note Comp Metabolic 07/07/2019 [facility] Sodium 135 mmol/L Normal 135-[address] [place] [address] [phone] Potassium 4.3 mmol/L Normal 3.5-5.0 Chloride 102 [...] Egfr Non- 74.8 >60 Egfr 90.5 >60 1 Laboratory test 07/07/2019 [facility] C Reactive < 1.00 Normal <8.[address] Protein mg/[place] [address] [phone] CBC Auto Diff 07/07/2019 [facility] White Blood 4.2 Normal 3.5 -10.[address] Count 10^3/[place] [address] [phone] Red Blood Count 3.99 10^6/uL Low 4.18-5.48 [...] Blood Cells % 0.0 Laboratory test 07/07/2019 [facility] Erythrocyte Sed 4 mm/Hr Normal 0-[address] [place] [address] [phone] Comp Metabolic 05/12/2019 [facility] Sodium 136 Normal 135- 145 [address] mmol/[place] [address] [phone] Potassium 4.5 mmol/L Normal 3.5-5.0 Chloride 102 [...] Egfr Non- 72.2 >60 Egfr 87.4 >60 3 Laboratory test 05/12/2019 [facility] C Reactive < 1.00 Normal <8.01 [address] Protein mg/[place] [address] [phone] CBC Auto Diff 05/12/2019 [facility] White Blood 5.1 Normal 3.5 -10.[address] Count 10^3/[place] [address] [phone] Red Blood Count 4.17 10^6/uL Low 4.18-5.48 [...] Blood Cells % 0.0 Laboratory test 05/12/2019 [facility] Erythrocyte Sed 1 mm/Hr Normal 0-19 [address] [place] [address] [phone] Comp Metabolic 03/17/2019 [facility] Sodium 136 Normal 135- [address] mmol/[place] [address] [phone] Potassium 4.3 mmol/L Normal 3.5-5.0 Chloride 103 [...] Egfr Non- 81.4 >60 Egfr 98.5 >60 6 Laboratory test 03/17/2019 [facility] C Reactive < 1.00 Normal <8.[address] Protein mg/[place] [address] [phone] CBC Auto Diff 03/17/2019 [facility] White Blood 4.1 Normal 3.5 -10.[address] Count 10^3/[place] [address] [phone] Red Blood Count 3.94 10^6/uL Low 4.18-5.48 [...] Blood Cells % 0.1 Laboratory test 03/17/2019 [facility] Erythrocyte Sed 2 mm/Hr Normal 0-[address] [place] [address] [phone] 1 Because ethnic data is not always readily [...] 15-29 5 Kidney failure <15 (or dialysis) 2 Comment: Send results to Dr. Pino Espinosa Comment: Send results to Dr.Matthew Espinosa 3 Because ethnic data is not always readily [...] 15-29 5 Kidney failure <15 (or dialysis) 4 Comment: Send results to Pino Espinosa Comment: Send results to Dr. Pino Espinosa 5 Comment: Send results to Dr. Pino Espinosa Comment: Send results to Dr.Matthew Espinosa 6 Because ethnic data is not always [...] (or dialysis) Procedures Date Code Description Status 08/22/201942939 Inject/Drain Joint/Bursa Major W/O US Completed 05/09/2019 Inject/Drain Joint/Bursa Major W/O US Completed Medical Devices Description No Information Available Encounters Type Date Location Provider Dx Diagnosis Office Visit 06/06/2019 Rheumatology Marino Epperson, M05.79 Rheu arthritis w 10:30a [facility] factor [facility] site w/o org/sys involv M54.42 Lumbago with sciatica, left side Z79.899 Other supervisor intermediates (current) drug therapy Office Visit 02/28/2019 9:00a Rheumatology Marino Epperson, M05.79 Rheu arthritis [facility] rheu factor [facility] site w/o org/sys involv M79.662 Pain in left lower leg M54.5 Low back pain Z79.899 Other jail (current) drug therapy R60.0 Localized edema I87.2 Venous insufficiency (chronic) (peripheral) Assessments Date Code Description Provider 08/22/2019 M17.12 Unilateral primary osteoarthritis, left knee Ezio Jasso M.D. 08/22/2019 M25.462 Effusion, left knee Ezio Jasso M.D. 06/06/2019 M05.79 Rheumatoid arthritis with rheumatoid factor of Marino Epperson [facility] site 06/06/2019 M54.42 Lumbago with sciatica, left side Marino Epperson [facility] 06/06/2019 Z79.899 Other jail (current) drug therapy THOMAS DhillonP 05/09/2019 M25.562 Pain in left knee Larisa Ramirez M.D. 05/09/2019 M25.462 Effusion, left knee Larisa Ramirez M.D. 05/09/2019 M17.12 Unilateral primary osteoarthritis, left knee Larisa Ramirez M.D. 02/28/2019 M05.79 Rheumatoid arthritis with rheumatoid factor of MarcoofiJOHN Truong multiple site 02/28/2019 M79.662 Pain in left lower leg JOHN Dhillon 02/28/2019 M54.5 Low back pain JOHN Dhillon 02/28/2019 Z79.899 Other supervisor intermediates (current) drug therapy JOHN Dhillon 02/28/2019 R60.0 Localized edema JOHN Dhillon 02/28/2019 I87.2 Venous insufficiency (chronic) (peripheral) JOHN Dhillon Plan of Treatment Future Appointment(s):08/30/2019 10:30 am - zEio Jasso M.D. at [facility] at [id number]/08/2019 9:30 am - JOHN Dhillon at [facility]08/22/2019 - Ezio Jasso M.D.M17.12 Unilateral primary osteoarthritis, left kneeNew Labs:CBC Auto Diff, Ordered: 08/22/19Inr/Protime, Ordered: 08/22/19New Xrays:Knee Left 4+ VWS, Ordered: 08/22/19Follow up:Follow up: 1 week Rest at home Keep the left leg horizontal OR elevated some Use a walker to rest your low back, left hip, and arthritic left knee.M25.462 Effusion, left knee Functional Status Description No Information Available Mental Status Description No Information Available Referrals Description No Information Available
--- OUTSIDE RECORDS SUMMARY | 2019-10-18 15:06 | XMS REPORT | Continuity of Care Document ---
:1945 External Reference #:[id number] Author Name JOHN Dhillon (transmitted by agent of provider Kira Steiner) Address [address] [place] [id number] Care Team Providers Name Role Phone Caesar Biggs DO - Family Care Team Information Assembly Cleaner [phone] Medicine [facility] - Physical Care Team Information Assembly Cleaner [phone] Therapy Emeterio Herron MD - Care Team Information Assembly Cleaner [phone] Cardiovascular Disease Pino Espinosa DO - Family Medicine Care Team Information Assembly Cleaner Problems Active Problems Provider Date Rheumatoid arthritis Jose Marks M.D. Onset: 10/24/2010 Note: High grade rheumatoid-MTX plus biologic. Remicade clearly more effective than sq. Medications Retirement (Current) Use Encounter Jose Marks M.D. Onset: [...] quit at age 39 Smoking Status Reviewed: 09/08/19 Patient is a former smoker quit at age 39 Allergies, Adverse Reactions, Alerts Active Allergies Reaction Severity Comments Date Hydroxychloroquine muscle spasms Severe 10/24/2010 Leflunomide Urticaria 10/24/2010 Medications Active Medications SIG Qnty Indications Ordering Provider Date Actemra IV infusion 8 M06.09 Gerson Galvan, 10/12/2018 400mg/20ML mg/kg every 4 M.D. Solution weeks Z79.899 M05.79 Shingrix 2 doses 6 month 2units Z23 Marino Epperson, [facility] 08/09/2018 50mcg/0.5ML apart Suspension Rec Allopurinol 1 by mouth every 90tabs M10.9 Marino Epperson, [facility] 03/25/2018 100mg Tablets day Folic Acid 1 by mouth every 90tabs Z79.899 Gerson Galvan, 03/11/2018 1mg Tablets day M.D. Methotrexate take 6 tablets 72tabs Z79.899 Marino Epperson [facility] 03/11/2018 2.5mg Tablets every week M06.09 M05.79 Calcium 600-D 1 by mouth daily 90tabs Z79.52 Marino Epperson, 05/29/[phone] [employer] ENGINEER Tablets Tramadol 1 tab by mouth 60tabs M25.562 Marino Epperson, 10/24/2010 Hydrochloride/Acetaminoph two times daily CERAMICS ENGINEER en as needed for 37.5-325mg Tablets pain. M79.662 Xarelto 1 by mouth every day Unknown 10mg Tablets Sildenafil Citrate 1 by mouth 30 min before Unknown 25mg Tablets sexual activity as needed. max 1 dose in a day Magnesium-Oxide 1 by mouth every day Unknown 400(241.3mg) mg Tablets Multivitamin Unknown Tablets Lasix 20mg 1 by mouth every day x 5 Unknown Tablets days then use prn Pravastatin Sodium 1 tablet daily at bedtime 30tabs Unknown 40mg Tablets Nitrostat one sl q5min up to 3 doses 25tabs Unknown 0.4mg Tablets Sub prn Vitamin B-12 qd 1Month Unknown Natural 500mcg Tablets Omeprazole 1 po qd 30caps Unknown 20mg Capsules DR Paez Medications Medrol take as directed 21units M54.42 Marino Epperson, 06/06/2019 - 4mg until finished as CERAMICS ENGINEER 09/08/2019 TBPK medrol dose pack Medications Administered in Office Medication SIG Qnty Indications Ordering Provider Date Depomedrol 40MG Ezio Jasso M.D. 08/30/2019 Injection Depomedrol 40MG Larisa Ramirez M.D. 05/09/2019 Injection Depomedrol 40MG Larisa Ramirez M.D. 07/26/2018 Injection Depomedrol 40MG Larisa Ramirez M.D. 02/19/2018 Injection PPD Injection Chapito Massey M.D. 08/12/2017 Depomedrol 80MG Ezio Jasso M.D. 03/31/2013 Injection Immunizations CPT Code Status Date Vaccine Reaction Lot # [id number] Given 05/10/2018 Influenza Virus Vaccine, [id number] Quadrivalent, Split, Preservative Free 57440 Given 09/07/2017 Pneumococcal Conjugate Vaccine no reaction noted [id number] Valent For Intramuscular Use 42458 Given 06/04/2017 Influenza Virus Vaccine, [id number] Quadrivalent, Split, Preservative Free 72583 Given 05/29/2016 Influ Virus Vaccine, [id number] Quadrivalent, Split Virus, [place] [address] Given 01/01/2016 Pneumococcal Conjugate Vaccine [id number] 13 Valent For Intramuscular Use Vital Signs Date Vital Result Comment 09/08/2019 9:33am Height 70 inches 5'10" Weight 212.25 lb Heart Rate 85 /min BP Systolic 139 mmHg BP Diastolic 79 mmHg Body Temperature 97.1 F O2 % BldC Oximetry 98 % BMI (Body Mass Index) 30.5 kg/m2 08/30/2019 10:18am Height 70 inches 5'10" Weight 227.00 lb Heart Rate 90 /min Body Temperature 96.1 F O2 % BldC Oximetry 99 % BMI (Body Mass Index) 32.6 kg/m2 Results Test Acquired Date Facility Test Result H/L Range Note Comp Metabolic 09/01/2019 [facility] Sodium 135 mmol/L Normal 135-[address] [place] [address] [phone] Potassium 4.1 mmol/L Normal 3.5-5.0 Chloride 103 mmol/L Normal 101-111 Co2 Carbon Dioxide 26 mmol/L Normal 22-32 Anion Gap 6 mmol/L Normal 2-11 Glucose 92 mg/dL Normal 70-100 Blood Urea Nitrogen 27 mg/dL High 6-24 Creatinine 1.01 mg/dL Normal 0.67-1.17 BUN/Creatinine Ratio 26.7 High 8-20 Calcium 9.3 mg/dL Normal 8.6-10.3 Total Protein 6.2 g/dL Low 6.4-8.9 Albumin 4.2 g/dL Normal 3.2-5.2 Globulin 2.0 g/dL Normal 2-4 Albumin/Globulin Ratio 2.1 Normal 1-3 Total Bilirubin 2.80 mg/dL High 0.2-1.0 Alkaline Phosphatase 21 U/L Low 34-104 Alt 13 U/L Normal 7-52 Ast 20 U/L Normal 13-39 Egfr Non- 72.0 >60 Egfr 87.1 >60 1 Laboratory test 09/01/2019 [facility] C Reactive < 1.00 Normal <8.[address] Protein mg/[place] [address] [phone] CBC Auto Diff 09/01/2019 [facility] White Blood 5.7 Normal 3.5 -10.[address] Count 10^3/[place] [address] [phone] Red Blood Count 2.96 10^6/uL Low 4.18-5.48 Hemoglobin 9.7 g/dL Low 14.0-18.0 Hematocrit 30 % Low 42-52 Mean Corpuscular Volume 100 fL High 80-94 Mean Corpuscular Hemoglobin 33 pg High 27-31 Mean Corpuscular HGB Conc 33 g/dL Normal 31-36 Red Cell Distribution Width 17 % High 10-15 Platelet Count 162 10^3/uL Normal 150-450 Mean Platelet Volume 6.9 fL Low 7.4-10.4 Abs Neutrophils 4.1 10^3/uL Normal 1.5-7.7 Abs Lymphocytes 1.0 10^3/uL Normal 1.0-4.8 Abs Monocytes 0.6 10^3/uL Normal 0-0.8 Abs Eosinophils 0.0 10^3/uL Normal 0-0.6 Abs Basophils 0.0 10^3/uL Normal 0-0.2 Abs Nucleated RBC 0.0 10^3/uL Granulocyte % 71.5 % Lymphocyte % 17.1 % Monocyte % 10.2 % Eosinophil % 0.6 % Basophil % 0.6 % Nucleated Red Blood Cells % 0.0 Laboratory test 09/01/2019 [facility] Erythrocyte Sed 2 mm/Hr Normal 0-[address] [place] [address] [phone] Inr/Protime 08/22/2019 [facility] Inr 1.45 High 0.82-1.[address] [place] [address] [phone] CBC Auto Diff 08/22/2019 [facility] White Blood 4.9 Normal 3.5 -10.[address] Count 10^3/[place] [address] [phone] Red Blood Count 2.69 10^6/uL Low 4.18-5.48 [...] % Nucleated Red Blood Cells % 0.0 Comp Metabolic 07/07/2019 [facility] Sodium 135 mmol/L Normal 135-[address] [place] [address] [phone] Potassium 4.3 mmol/L Normal 3.5-5.0 Chloride 102 [...] Egfr Non- 74.8 >60 Egfr 90.5 >60 3 Laboratory test 07/07/2019 [facility] C Reactive < 1.00 Normal <8.[address] Protein mg/[place] [address] [phone] CBC Auto Diff 07/07/2019 [facility] White Blood 4.2 Normal 3.5 -10.[address] Count 10^3/[place] [address] [phone] Red Blood Count 3.99 10^6/uL Low 4.18-5.48 [...] Blood Cells % 0.0 Laboratory test 07/07/2019 [facility] Erythrocyte Sed 4 mm/Hr Normal 0-[address] [place] [address] [phone] Comp Metabolic 05/12/2019 [facility] Sodium 136 Normal 135- 145 [address] mmol/[place] [address] [phone] Potassium 4.5 mmol/L Normal 3.5-5.0 Chloride 102 [...] Egfr Non- 72.2 >60 Egfr 87.4 >60 5 Laboratory test 05/12/2019 [facility] C Reactive < 1.00 Normal <8.01 [address] Protein mg/[place] [address] [phone] CBC Auto Diff 05/12/2019 [facility] White Blood 5.1 Normal 3.5 -10.[address] Count 10^3/[place] [address] [phone] Red Blood Count 4.17 10^6/uL Low 4.18-5.48 [...] Blood Cells % 0.0 Laboratory test 05/12/2019 [facility] Erythrocyte Sed 1 mm/Hr Normal 0-19 [address] [place] [address] [phone] Comp Metabolic 03/17/2019 [facility] Sodium 136 Normal 135- [address] mmol/[place] [address] [phone] Potassium 4.3 mmol/L Normal 3.5-5.0 Chloride 103 [...] Egfr Non- 81.4 >60 Egfr 98.5 >60 8 Laboratory test 03/17/2019 [facility] C Reactive < 1.00 Normal <8.[address] Protein mg/[place] [address] [phone] CBC Auto Diff 03/17/2019 [facility] White Blood 4.1 Normal 3.5 -10.[address] Count 10^3/[place] [address] [phone] Red Blood Count 3.94 10^6/uL Low 4.18-5.48 [...] Blood Cells % 0.1 Laboratory test 03/17/2019 [facility] Erythrocyte Sed 2 mm/Hr Normal 0-[address] [place] [address] [phone] 1 Because ethnic data is not always [...] 5 Kidney failure <15 (or dialysis) 2 Standard intensity warfarin therapeutic range: 2.0-3.0 High intensity warfarin therapeutic range: 2.5-3.5 3 Because ethnic data is not always [...] (or dialysis) 4 Comment: Send results to Dr. Pino [...] 5 Kidney failure <15 (or dialysis) 6 Comment: Send results to Pino Espinosa Comment: Send results to Dr. Pino Espinosa 7 Comment: Send results to Dr. Pino Espinosa Comment: Send results to Dr.Matthew Espinosa 8 Because ethnic data is not always readily [...] (or dialysis) Procedures Date Code Description Status 08/30/201910343 Inject/Drain Joint/Bursa Major W/O US Completed 08/22/2019 15126 Inject/Drain Joint/Bursa Major W/O US Completed 05/09/2019 18055 Inject/Drain Joint/Bursa Major W/O US Completed Medical Devices Description No Information Available Encounters Type Date Location Provider Dx Diagnosis Office Visit 08/22/2019 [facility] Ezio Jasso M.D. M17.12 Unilateral primary 9:30a at [place] osteoarthritis, left knee M25.462 Effusion, left knee Office Visit 06/06/2019 10:30a Rheumatology Marino Epperson M05.79 [facility] w rheu factor Ccmob mult site w/o org/sys involv M54.42 Lumbago with sciatica, left side Z79.899 Other lobsterman (current) drug therapy Assessments Date Code Description Provider 09/08/2019 M05.79 Rheumatoid arthritis with rheumatoid factor of JOHN Dhillon [facility] site 09/08/2019 M54.42 Lumbago with sciatica, left side Zsofia Zhou, CERAMICS ENGINEER 09/08/2019 M21.372 Foot drop, left foot Zsofia Zhou, CERAMICS ENGINEER 09/08/2019 M25.462 Effusion, left knee Zsofia Zhou, CERAMICS ENGINEER 09/08/2019 S70.922S Unspecified superficial injury of left thigh, Marcoofidavid Epperson, CERAMICS ENGINEER sequela 09/08/2019 D64.9 Anemia, unspecified Zsofia Zhou, CERAMICS ENGINEER 09/08/2019 Z79.899 Other lobsterman (current) drug therapy Zsofia Zhou, CERAMICS ENGINEER 08/30/2019 M17.12 Unilateral primary osteoarthritis, left knee Ezio Jasso M.D. 08/22/2019 M17.12 Unilateral primary osteoarthritis, left knee Ezio Jasso M.D. 08/22/2019 M25.462 Effusion, left knee Ezio Jasso M.D. 06/06/2019 M05.79 Rheumatoid arthritis with rheumatoid factor of JOHN Dhillon multiple site 06/06/2019 M54.42 Lumbago with sciatica, left side Marcoofia Zhou, CERAMICS ENGINEER 06/06/2019 Z79.899 Other nursing home (current) drug therapy Nusrata Zhou, JOHN 05/09/2019 M25.562 Pain in left knee Larisa Ramirez M.D. 05/09/2019 M25.462 Effusion, left knee Larisa Ramirez M.D. 05/09/2019 M17.12 Unilateral primary osteoarthritis, left knee Larisa Ramirez M.D. Plan of Treatment Future Appointment(s):12/08/2019 10:30 am - JOHN Dhillon at [facility]10/19/2019 10:30 am - Ezio Jasso M.D. at [facility] at [id number]/08/2019 - THOMAS DhillonPM05.79 Rheumatoid arthritis with rheumatoid factor of multiple siteComments:Your arthritis seems to be clinically well controlled at this time.Your inflammatory markers are within normal rangeYour latest laboratory tests indicate no detectable impairment of kidney and liver functions.Please, continue with the present medication regime.Please call the office if you develop anysign or symptoms of infection or acute change in your health.Follow up:3 tujrdR58.42 Lumbago with sciatica, left sideM21.372 Foot drop, left footNew Therapy:Physical TherapyComments: Treatment for foot drop might include:Braces or splints. A brace on your ankle and foot or splint that fits into your shoe can help hold your foot in a normal position.Physical therapy.Nerve stimulation. Surgery.M25.462 Effusion, left kneeComments:Do mobility exercises as qcihyozgcH85.922S Unspecified superficial injury of left thigh, sequelaComments:It my take an other 4-6 weeks to get the hematoma completely resolve.Hematomas usually clear on their own, slowly getting smaller over time as the accumulated blood is absorbed. It might take months for a large hematoma to be fully absorbed.Commonly, a leg hematoma is treated with:cold compress or icepack application for 20 to 30 minutes for the 48 hours following injury to reduce swellingrestelevating your foot higher than your heartlight compression with a wrapped bandagepain medication such as acetaminophen (Tylenol)heat for 10 minutes three times daily for 48 hours following the injury to increase blood flowDO not use KgdkengsbJ49.9 Anemia, unspecifiedComments:Discussed that anemia may cause increased fatigue, shortness of breath, reduced exercise tolerance.Please modify your activity level jbceofjkgpwE97.899 Other lobsterman (current) drug therapy Functional Status Description No Information Available Mental Status Description No Information Available Referrals Description No Information Available
--- OUTSIDE RECORDS SUMMARY | 2019-10-18 15:06 | XMS REPORT | Continuity of Care Document ---
:1945 External Reference #:[id number] Author Name Pino Espinosa DO Address [address] [place] [address] Problems Active Problems Provider Date Gastroesophageal reflux [...] Medications SIG Qnty Indications Ordering Date Provider Ferrous Sulfate 1 by mouth every 30tabs Pino Espinosa, 09/02/2019 day DO 325(65Fe) mg Tablets Sildenafil Citrate 3 by mouth 1 hour [...] qd 100tabs Jc Haro, 11/08/2004 1mg Tablets Vitamin B-12 1 by mouth every Unknown Natural day 500mcg Tablets Actemra 1 sq q4wks Unknown Solution Furosemide 1-2 by mouth Unknown 20mg Tablets daily prn swelling Calcium 600 + D 1 by mouth twice Unknown a day Tablets Allopurinol 1 by mouth every Unknown 100mg day Tablets Magnesium Oxide 1 by mouth every Unknown 400mg day Capsules Methotrexate 6 pills by mouth Unknown 2.5mg once a week Tablets Xarelto 1/2 by mouth Unknown 20mg Tablets every day Immunizations CPT Code Status Date Vaccine Lot # [id number] Given 07/05/2019 Fluzone Highdose Age 65 And Over Preservative & Antibiotic Free 84860 Given 05/12/2018 Fluzone Highdose Age 65 And Over Preservative & Antibiotic Free 37117 Given 12/24/2015 Prevnar 13 Pneumococal Conjugate Vaccine 35305 Given 05/25/2015 Fluzone Highdose Age 65 And Over Preservative & Antibiotic Free 43023 Given 05/25/2014 Fluzone Highdose Age 65 And Over Preservative & Antibiotic Free 62322 Given 06/15/2013 Afluria Or Fluvirin Flu Vac Intramuscular 56009 Given 10/13/2011 Tdap (Adacel) Ages 7 And Above Only 60808 Given 05/15/2011 Afluria Or Fluvirin Flu Vac Intramuscular 01998 Given 06/28/2010 Afluria Or Fluvirin Flu Vac Intramuscular 12708 Given 04/19/2009 Afluria Or Fluvirin Flu Vac Intramuscular 58535 Given 06/08/2008 Afluria Or Fluvirin Flu Vac Intramuscular 83308 Given 07/27/2007 Afluria Or Fluvirin Flu Vac Intramuscular 31989 Given 07/27/2006 Pneumococcal 23 Immunization Adult Or Immunosuppressed Patient 78010 Given 06/22/2006 Afluria Or Fluvirin Flu Vac Intramuscular Vital Signs Date Vital Result Comment 09/02/2019 8:59am Weight 229.00 lb Heart Rate 72 /min BP Systolic 146 mmHg BP Diastolic 78 mmHg Respiratory Rate 18 /min Height 69.25 inches 5'9.25" BMI (Body Mass Index) 33.6 kg/m2 08/10/2019 10:52am Weight 215.00 lb Heart Rate 70 /min BP Systolic 128 mmHg BP Diastolic 74 mmHg Respiratory Rate 18 /min Height 69.25 inches 5'9.25" BMI (Body Mass Index) 31.5 kg/m2 Results Description No Information Available Procedures Date Code Description Status 05/21/2017 69752395 Colonoscopy Completed Medical Devices Description No Information Available Encounters Type Date Location Provider Dx Diagnosis Office Visit 08/10/2019 10:45a [facility] Tricia Padilla PA M25.552 Pain in LEFT hip M21.372 Foot drop, LEFT foot R60.0 Localized edema Z68.31 Body mass index (BMI) 31.0-31.9, adult Office Visit 07/28/2019 10:15a [facility] Pino Espinosa DO 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 K21.9 Gastro-esophageal reflux disease without esophagitis E78.5 Hyperlipidemia, unspecified M17.0 Bilateral primary osteoarthritis of knee Z95.0 Presence of cardiac pacemaker I10 Essential (primary) hypertension M10.9 Gout, unspecified M54.5 Low back pain E11.9 Type 2 diabetes mellitus without complications M06.9 Rheumatoid arthritis, unspecified I48.91 Unspecified atrial fibrillation I49.5 Sick sinus syndrome E66.3 Overweight Z68.29 Body mass index (BMI) 29.0-29.9, adult Assessments Date Code Description Provider 09/02/2019 S70.02xD Contusion of LEFT hip, subsequent encounter Pino Espinosa DO 09/02/2019 M25.552 Pain in LEFT hip Pino Espinosa DO 09/02/2019 S80.02xD Contusion of LEFT knee, subsequent encounter Pino Espinosa DO 09/02/2019 I48.91 Unspecified atrial fibrillation Pino Espinosa DO 09/02/2019 D64.9 Anemia, unspecified Pino Espinosa, DO 09/02/2019 M21.372 Foot drop, LEFT foot Pino Espinosa, 09/02/2019 Z68.33 Body mass index (BMI) 33.0-33.9, adult Pino Espinosa, 08/10/2019 M25.552 Pain in LEFT hip Tricia Padilla PA 08/10/2019 M21.372 Foot drop, LEFT foot Tricia Padilla PA 08/10/2019 R60.0 Localized edema Tricia Padilla PA 08/10/2019 Z68.31 Body mass index (BMI) 31.0-31.9, adult Tricia Padilla PA 07/28/2019 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 Pino Espinosa DO coronary artery with 07/28/2019 K21.9 Gastro-esophageal reflux disease without Pino Espinosa DO esophagitis 07/28/2019 E78.5 Hyperlipidemia, unspecified Pino Espinosa, 07/28/2019 M17.0 Bilateral primary osteoarthritis of knee Pino Espinosa, 07/28/2019 Z95.0 Presence of cardiac pacemaker Pino Espinosa DO 07/28/2019 I10 Essential (primary) hypertension Pino Espinosa DO 07/28/2019 M10.9 Gout, unspecified Pino Espinosa DO 07/28/2019 M54.5 Low back pain Pino Espinosa DO 07/28/2019 E11.9 Type 2 diabetes mellitus without Pino Espinosa DO complications 07/28/2019 M06.9 Rheumatoid arthritis, unspecified Pino Espinosa, 07/28/2019 I48.91 Unspecified atrial fibrillation Pino Espinosa DO 07/28/2019 I49.5 Sick sinus syndrome Pino Espinosa DO 07/28/2019 E66.3 Overweight Pino Espinosa DO 07/28/2019 Z68.29 Body mass index (BMI) 29.0-29.9, adult Pino Espinosa DO Plan of Treatment Future Appointment(s):01/27/2020 11:15 am - Pino Espinosa DO at [facility]09/02/2019 - Espinosa, Pino, DOS70.02xD Contusion of LEFT hip, subsequent encounterComments :Dr. Briones told that we could discontinue the Aspirin and decrease the dose of Xarelto to 10 mg po daily. I had a nurse to call the pharmacist told us that he can cut the Xarelto 20 mg in half, but should take it with food.I told the patient to call us next week if he would not get a call from Dr. Briones's office. We will continue to monitor.Follow up:Blood work community care in 2 weeks. Will follow up with me as scheduled.M25.552 Pain in LEFT hipComments:The patient has had x-rays performed which showed no fracture. I recommended the patient to treat this symptomatically, use Aspercreme. Follow up with Dr. Jasso as scheduled. We will continue to monitor.S80.02xD Contusion of LEFT knee, subsequent encounterComments:Dr. Briones told that we could discontinue the Aspirin and decrease the dose of Xarelto to 10 mg po daily. I had a nurse to call the pharmacist told us that he can cut the Xarelto 20 mg in half, butshould take it with food.I told the patient to call us next week if he would not get a call from 's office. We will continue to monitor.I48.91 Unspecified atrial fibrillationNew Labs:CBC With Auto Diff, Scheduled: 09/16/19PT With Inr-fcmg, Scheduled: 09/16/19Comments:The patient had atrial fibrillation and was cardioverted on 08/09/19. The patient was on Warfarin in the past and this was switched to Xarelto by Dr. Briones. He is currently taking ASA and Xarelto. The patient has significant bleeding and hematoma on Xarelto. I spoke to Dr. Briones online health and fitness coach, who said that the patient would be a great candidate to undergo a Watchmen device placement. He states that he would initiate a referral to [facility]. He would contact him within the next week and will follow the patient.He told that we could discontinue the Aspirin and decrease the dose of Xarelto to 10 mg po daily. I had a nurse to call the pharmacist told us that he can cut the Xarelto 20 mg in half, but should take it with food.I told the patient to call us next week if he would not get a call from Dr. Briones's office. We will continue to monitor.D64.9 Anemia, unspecifiedNew Labs:Iron, Serum-fcmg, Scheduled: Ferritin-fcmg, Scheduled: 09/16/19Vitamin B12, Scheduled: 09/16/19Comments:I sent in a script for ferrous sulfate 325 mg. Reviewed the side and adverse effects of the medication and he verbalized understanding. I recommended the patient to eat iron-rich foods and a printout was provided today. Will recheck in the future.Will continue to monitor.M21.372 Foot drop, LEFT footComments:Can continue with chiropractic treatments. Can use a cane for ambulation.Z68.33 Body mass index (BMI) 33.0-33.9, adultComments:BMI is at 33.6. The patient should try to lose weight with low-calorie diet and exercises. We willcontinue to monitor weight and BMI periodically.AllNew Medication:Ferrous Sulfate 325(65 Fe) mg - 1 by mouth every day Functional Status Description No Information Available Mental Status Description No Information Available Referrals Description No Information Available
[2019-10-18 15:13] VITALS: BP 113/85
--- NOTE | 2019-10-18 15:18 | UC ---
Throat Pain/Nasal Ernst HPI - HPI Summary HPI Summary: 74-year-old male who has had cold symptoms approximately 3-4 weeks ago and now has postnasal drainage, sinus pressure and purulent nasal coryza. - History of Current Complaint Chief Complaint: UCRespiratory Stated Complaint: HEAD CONGESTION Time Seen by Provider: 10/18/19 15:04 Hx Obtained From: Patient Onset/Duration: Gradual Onset, Lasting Weeks Severity: Mild Pain Intensity: 2 Cough: Productive - Occasionally has a productive cough of yellowish-green sputum however he thinks this is postnasal drainage. Associated Signs & Symptoms: Positive: Sinus Discomfort, Nasal Discharge - Allergies/Home Medications Allergies/Adverse Reactions: Allergies Allergy/AdvReac Type Severity Reaction Status Date / Time cimetidine Allergy Unknown Verified 10/18/19 15:05 Reaction Details hydroxychloroquine Allergy Unknown Verified 10/18/19 15:05 Reaction Details leflunomide Allergy Unknown Verified 10/18/19 15:05 Reaction Details Sulfa (Sulfonamide Allergy Unknown Verified 10/18/19 15:05 Antibiotics) Reaction Details Home Medications: Home Medications Allopurinol TAB* [Zyloprim 100 MG TAB*] 100 mg PO DAILY 08/03/19 [History Confirmed 10/18/19] Calcium Carbonate/Vitamin D3 [Calcium 600-Vit D3 800 Caplet] 1 each PO DAILY 07/12 [History Confirmed 10/18/19] Cyanocobalamin TAB* [Vitamin B12 TAB*] 500 mcg PO DAILY 08/03/19 [History Confirmed 10/18/19] Folic Acid TAB* [Folvite TAB*] 1 mg PO DAILY 08/03/19 [History Confirmed ] Furosemide TAB* [Lasix TAB*] 20 mg PO DAILY PRN 08/03/19 [History Confirmed ] Magnesium Oxide TAB* [MagOx 400 TAB*] 400 mg PO DAILY 08/03/19 [History Confirmed 10/18/19] Methotrexate TAB* 6 tab PO WEEKLY 08/03/19 [History Confirmed 10/18/19] Omeprazole CAP (NF) [Prilosec CAP* 20 MG] 20 mg PO DAILY 08/03/19 [History Confirmed 10/18/19] Pravastatin Sodium [Pravachol] 80 mg PO DAILY 08/03/19 [History Confirmed ] Rivaroxaban TAB(*) [Xarelto 20 mg] 10 mg PO DAILY 08/03/19 [History Confirmed ] Tocilizumab* [Actemra*] 20 mg IV Q28D 08/03/19 [History Confirmed 10/18/19] Tramadol HCl/Acetaminophen [Ultracet] 1 tab PO Q12H PRN MDD 2 08/03/19 [History Confirmed 10/18/19] DOXYcycline CAP(*) [DOXYcycline 100MG CAP(*)] 100 mg PO BID 10 Days #20 cap [Rx] PMH/Surg Hx/FS Hx/Imm Hx Previously Healthy: Yes Cardiovascular History: Pacemaker/ICD - Surgical History Surgical History: Yes Surgery Procedure, Year, and Place: hemicholectomy- colostomy surgery with reversal. nasal. vasectomy. R TKA - Family History Known Family History: Positive: Cardiac Disease, Hypertension, Other - father had RA, at age 70. Mother had mental illness and DE - Social History Occupation: Retired Alcohol Use: None Substance Use Type: None Smoking Status (MU): Former Smoker Amount Used/How Often: 3 PPD Length of Time of Smoking/Using Tobacco: 30 YEARS Have You Smoked in the Last Year: No When Did the Patient Quit Smoking/Using Tobacco: Household Exposure Type: Cigarettes - Immunization History Most Recent Influenza Vaccination: 2012 Most Recent Tetanus Shot: 2012 Most Recent Pneumonia Vaccination: 2005 Review of Systems All Other Systems Reviewed And Are Negative: Yes ENT: Positive: Nasal Discharge, Sinus Congestion, Sinus Pain/Tenderness Respiratory: Positive: Cough - Occasional cough with greenish yellow sputum which he thinks is postnasal drainage. Is Patient Immunocompromised?: No Physical Exam Triage Information Reviewed: Yes Appearance: Well-Appearing, No Pain Distress, Well-Nourished Vital Signs: Initial Vital Signs Temp 97.8 F 10/18/19 15:07 Pulse 77 10/18/19 15:07 Resp 16 10/18/19 15:07 BP 113/85 10/18/19 15:07 Pulse Ox 100 10/18/19 15:07 Vital Signs Reviewed: Yes Eyes: Positive: Conjunctiva Clear ENT: Positive: Pharynx normal - Yellow postnasal drainage, Nasal congestion, Nasal drainage - Yellow purulent nasal coryza worse on the right side of the left., TMs normal, Sinus tenderness - Tenderness on palpation of the maxillary sinuses bilaterally., Uvula midline Neck: Positive: Supple, Nontender, No Lymphadenopathy Respiratory: Positive: Lungs clear, Normal breath sounds, No respiratory distress, No accessory muscle use Cardiovascular: Positive: RRR, No Murmur, Pulses Normal, Brisk Capillary Refill Musculoskeletal Exam: Normal Neurological Exam: Normal Psychological Exam: Normal Skin Exam: Normal Throat Pain/Nasal Course/Dx - Course Course Of Treatment: Patient is comfortable here and in no distress. He was educated about the need to not take his calcium or magnesium supplement within 2 hours of taking the doxycycline either before or after. - Differential Dx/Diagnosis Provider Diagnosis: Sinusitis Discharge ED - Sign-Out/Discharge Documenting (check all that apply): Patient Departure All imaging exams completed and their final reports reviewed: No Studies - Discharge Plan Condition: Good Disposition: HOME Prescriptions: DOXYcycline CAP(*) [DOXYcycline 100MG CAP(*)] 100 mg PO BID 10 Days #20 cap Patient Education Materials: Sinusitis (ED) Referrals: Pino Espinosa DO [Primary Care Provider] - Additional Instructions: Increase fluids, no dairy products, antacids, multivitamins, none of your calcium or magnesium supplements 2 hours before you take the doxycycline and 2 hours after however be sure and take it with food. Follow-up with your primary care provider if no improvement in 5-7 days. - Billing Disposition and Condition Condition: GOOD Disposition: Home
== END 2019-10-18 15:31 | disposition home or self-care (01) ==
LOC: UCCORT 14:57
DX: J32.9 Chronic sinusitis, unspecified (principal); R05 Cough; Z88.2 Allergy status to sulfonamides; Z88.8 Allergy status to other drugs, medicaments and biological substances; Z95.0 Presence of cardiac pacemaker; Z87.891 Personal history of nicotine dependence
CPT/HCPCS: 99212; G0463

== ENCOUNTER 2021-12-27 22:16 | Inpatient (IN) ==
[2021-12-27] MEDS ORDERED: Lactated Ringers 1000 ml BAG 1,000 ML IV ONE (22:35)
[2021-12-28 00:02] LABS: ABS Basophils 0.1 10^3/ul (0-0.2); ABS Eosinophils 0.1 10^3/ul (0-0.6); ABS Lymphocytes 1.2 10^3/ul (1.0-4.8); ABS Monocytes 0.8 10^3/ul (0-0.8); ABS Neutrophils 6.3 10^3/ul (1.5-7.7); Eosinophil % 1.2 %; Hematocrit 41 % (42-52); Hemoglobin 13.3 g/dL (14.0-18.0); Lymphocyte % 14.3 %; Mean Corpuscular HGB Conc 33 g/dL (31-36); Mean Corpuscular Hemoglobin 33 pg (27-31); Mean Corpuscular Volume 100 fL (80-94); Mean Platelet Volume 7.7 fL (7.4-10.4); Nucleated Red Blood Cells % 0.1; Platelet Count 181 10^3/uL (150-450); Red Blood Count 4.05 10^6 /uL (4.18-5.48); Red Cell Distribution Width 16 % (10-15); White Blood Count 8.5 10^3/uL (3.5-10.8)
[2021-12-28 00:26] LABS: High Sens Troponin Baseline 10 pg/mL (<20)
[2021-12-28 00:37] LABS: ALT 12 U/L (7-52); Albumin 4.2 g/dL (3.2-5.2); Albumin/Globulin Ratio 1.3 (1-3); Alkaline Phosphatase 39 U/L (35-149); Blood Urea Nitrogen 23 mg/dL (6-24); CO2 Carbon Dioxide 24 mmol/L (22-32); Calcium 9.5 mg/dL (8.6-10.3); Chloride 103 mmol/L (101-111); Globulin 3.3 g/dL (2-4); Glucose 103 mg/dL (70-100); Sodium 137 mmol/L (135-145); Total Protein 7.5 g/dL (6.4-8.9); eGFR CKD-EPI 65.5 (>60)
[2021-12-28 00:44] LABS: Anion Gap 10 mmol/L (2-11)
[2021-12-28 01:24] LABS: High Sensitivity Troponin 1 Hr 10 pg/mL (<20)
[2021-12-28 03:02] LABS: Potassium Redraw 4.3 mmol/L (3.5-5.0)
[2021-12-28] MEDS ORDERED: Iodixanol (CONTRAST) 320 MG/ML 100 ML SDV IV ONE (03:04)
[2021-12-28] MEDS: Calcium/Vitamin D TAB 250/125 TAB PO SCH (10:15)
[2021-12-28] MEDS: Aspirin EC 81 mg TAB.EC (enteric coated) PO SCH (10:16)
[2021-12-29 07:06] LABS: ABS Eosinophils 0.1 10^3/ul (0-0.6); ABS Lymphocytes 1.3 10^3/ul (1.0-4.8); ABS Monocytes 0.6 10^3/ul (0-0.8); ABS Neutrophils 3.3 10^3/ul (1.5-7.7); Eosinophil % 2.5 %; Hematocrit 37 % (42-52); Hemoglobin 12.2 g/dL (14.0-18.0); Lymphocyte % 23.6 %; Mean Corpuscular HGB Conc 33 g/dL (31-36); Mean Corpuscular Hemoglobin 33 pg (27-31); Mean Corpuscular Volume 100 fL (80-94); Mean Platelet Volume 7.3 fL (7.4-10.4); Nucleated Red Blood Cells % 0.1; Platelet Count 149 10^3/uL (150-450); Red Blood Count 3.65 10^6 /uL (4.18-5.48); Red Cell Distribution Width 15 % (10-15); White Blood Count 5.4 10^3/uL (3.5-10.8)
[2021-12-29 07:29] LABS: Calcium 9.1 mg/dL (8.6-10.3); Potassium 4.5 mmol/L (3.5-5.0); eGFR CKD-EPI 83.5 (>60)
[2021-12-29] MEDS: Aspirin EC 81 mg TAB.EC (enteric coated) PO SCH (08:21)
[2021-12-29] MEDS: Calcium/Vitamin D TAB 250/125 TAB PO SCH (08:21)
[2021-12-29] MEDS ORDERED: Enoxaparin 40 MG/0.4 ML SYR SUBCUT SCH (15:00)
[2021-12-29 19:43] VITALS: BP 157/73
[2021-12-30] MEDS ORDERED: Enoxaparin 40 MG/0.4 ML SYR SUBCUT SCH (09:00)
== END 2021-12-29 23:39 | disposition short-term general hospital (02) | DRG 68 ==
LOC: EDHOLD 22:16 → ED 22:16 → SUATTDRO 12-28 04:30 → MEDTELE 12-28 08:00
PROVIDERS: ADMIT Internal Medicine; ATTEND Internal Medicine

== ENCOUNTER 2024-01-11 08:25 | Observation (INO) ==
[~2024-01-11 08:25] MED LIST: Naloxone 0.4 mg VIAL 0.4 mg/ml 1 ml VIAL IV PRN; fentaNYL 100 mcg/2 ml 50 MCG/ML VIAL IV PRN
[2024-01-11] MEDS ORDERED: Rocuronium 50 mg VIAL 10 mg/ml 5 ml VIAL (50 mg) ONE ×2 (09:05→11:49)
[2024-01-11] MEDS ORDERED: Midazolam 2 mg/2 ml VIAL 1 mg/ml 2 ml VIAL (2 mg) ONE (09:06)
[2024-01-11] MEDS ORDERED: fentaNYL 100 mcg/2 ml 50 MCG/ML VIAL ONE (09:07)
[2024-01-11 09:17] LABS: Rapid COVID-19 Molecular Undetected (Undetected)
[2024-01-11] MEDS: Lactated Ringers 1000 ml BAG 1,000 ML IV SCH ×2 (09:49→16:30)
[2024-01-11] MEDS ORDERED: Lidocaine 1% w EPI 1:100,000 MDV 20 ML VIAL ONE (10:14)
[2024-01-11] MEDS ORDERED: Gelfoam Sponge SIZE 100 SPONGE ONE (10:15)
[2024-01-11] MEDS ORDERED: Thrombin 5,000 UNITS 1 APPLIC KIT - topical use - TOPICAL ONE (10:15)
[2024-01-11] MEDS ORDERED: ceFAZolin VIAL VIAL ONE (10:15)
[2024-01-11] MEDS ORDERED: Acetaminophen IV 1 GM/100ML 1,000 MG/100 ML BAG IV ONE (11:41)
[2024-01-11] MEDS ORDERED: Propofol 10 MG/ML 20 ML BTL ONE (11:47)
[2024-01-11] MEDS ORDERED: Phenylephrine IV 10 MG/ML 1 ml VIAL ONE (11:47)
[2024-01-11] MEDS ORDERED: Ondansetron 4 mg VIAL 2 MG/ML 2 ml VIAL ONE ×2 (13:13→14:24)
[2024-01-11] MEDS ORDERED: Dexamethasone IV 4 MG/ML VIAL 1 ml VIAL ONE (13:13)
[2024-01-11] MEDS ORDERED: HYDROmorphone 0.5 MG/0.5 ML SYRINGE ONE (13:27)
[2024-01-11] MEDS ORDERED: Dextran 70/Hypromellose Tears Eye Drops 15 ml BTL (for Artificials Tears) BOTH EYES PRN (13:58)
[2024-01-11] MEDS ORDERED: Calcium Carb (TUMS) 500 mg CHEW TAB PO PRN (13:58)
[2024-01-11] MEDS ORDERED: Morphine 2 MG/ML SYRINGE IV PRN (13:58)
[2024-01-11] MEDS ORDERED: Benzocaine/Menthol LOZ MT PRN (13:58)
[2024-01-11] MEDS ORDERED: Senna TAB 8.6 mg TAB PO PRN (13:58)
[2024-01-11] MEDS ORDERED: HYDROcodone/ACETAMIN 5/325 mg TAB PO PRN (13:58)
[2024-01-11] MEDS ORDERED: Phenol 1.4% Throat Spray BTL MT PRN (13:58)
[2024-01-11] MEDS: Ondansetron 4 mg VIAL 2 MG/ML 2 ml VIAL IV PRN (14:28)
[2024-01-11] MEDS: Buffered Lidocaine 1% SYRIN 1 ml INTRADERM ONE (16:31)
[2024-01-11] MEDS: HYDROcodone/ACETAMIN 5/325 mg TAB PO PRN (23:25)
[2024-01-12 06:00] VITALS: BP 144/73
== END 2024-01-12 11:17 | disposition home or self-care (01) ==
LOC: SSU 08:25 → OR 08:25
PROVIDERS: ADMIT Neurological Surgery; ATTEND Neurological Surgery